=== PATIENT | male | born 1955 | race Caucasian/White ===

== ENCOUNTER 2016-12-21 19:36 | Emergency (ER) | payer OTHER ==
[~2016-12-21] VITALS: Ht 167.6 cm; Wt 84.0 kg
[~2016-12-21 19:36] MED LIST: BUSP10TA23 PO; DIVA500T69 PO; DULO30CA2 PO; GABA300C PO; OLAN10TA3 PO; SERT100T12 PO; TRAZ-144 PO
[2016-12-21 20:08] LABS: BASOPHILS % (AUTO) 0.6 % (0.0-2.0); EOSINOPHILS % (AUTO) 5.2 % (1.0-6.0); HEMOGLOBIN 13.6 g/dL (13.5-17.5); LYMPHOCYTES # (AUTO) 2.3 K/uL (1.0-4.8); LYMPHOCYTES % (AUTO) 31.7 % (22.0-44.0); MEAN CORPUSCULAR HGB CONC 32.4 G/dL (31.0-37.0); MEAN CORPUSCULAR VOLUME 93 fL (80-100); MONOCYTES # (AUTO) 0.7 K/uL (0.1-1.0); MONOCYTES % (AUTO) 10.3 % (2.0-9.0); NEUTROPHILS # (AUTO) 3.7 K/uL (1.8-7.7); NEUTROPHILS % (AUTO) 52.2 % (40.0-70.0); PLATELET COUNT (AUTO) 310 K/uL (150-450); RED BLOOD CELL COUNT(AUTO) 4.53 MIL/uL (4.50-5.90); RED CELL DISTRIBUTION WIDTH 15.3 % (11.5-14.5); WHITE BLOOD COUNT (AUTO) 7.1 K/uL (4.5-11.0)
[2016-12-21 20:21] LABS: ANION GAP 9 mmol/L (8-16); CALCIUM, TOTAL 8.5 mg/dL (8.8-10.5); CARBON DIOXIDE 26 mmol/L (22-29); CHLORIDE 101 mmol/L (98-107); CREATININE 0.89 mg/dL (0.60-1.30); GLOMERULAR FILTR. RATE CALC > 60 mL/min (>60); POTASSIUM 3.7 mmol/L (3.5-5.1); SODIUM SERUM 136 mmol/L (136-145); UREA NITROGEN, BLOOD 15 mg/dL (7-18)
[2016-12-21 20:27] LABS: ALANINE AMINOTRANSFERASE 48 U/L (12-78); ALBUMIN 3.7 g/dL (3.4-5.0); ASPARTATE AMINOTRANSFERASE 38 U/L (15-37); BILIRUBIN,TOTAL 0.3 mg/dL (0.1-1.0); TOTAL PROTEIN, SERUM 7.6 g/dL (6.4-8.2)
[2016-12-21] MEDS ORDERED: LORazepam 1 MG TABLET PO ONE (22:15)
[2016-12-21] MEDS ORDERED: OLANZapine 5 MG TABLET PO ONE (22:15)
[2016-12-21] MEDS ORDERED: ALBUTEROL SULFATE 2.5 MG/0.5 ML NEB SOLUTION NEB ONE (23:15)
[2016-12-21] MEDS ORDERED: 0.9% SODIUM CHLORIDE 5 ML NEB SOLUTION NEB ONE (23:56)
[2016-12-22 00:50] VITALS: BP 133/74
== END 2016-12-22 01:32 | disposition home or self-care (01) ==
LOC: EMS 19:40
DX: S50.812A Abrasion of left forearm, initial encounter (principal); J18.9 Pneumonia, unspecified organism; F20.9 Schizophrenia, unspecified; F41.9 Anxiety disorder, unspecified; J44.9 Chronic obstructive pulmonary disease, unspecified; I10 Essential (primary) hypertension; I25.2 Old myocardial infarction; F17.210 Nicotine dependence, cigarettes, uncomplicated; F11.90 Opioid use, unspecified, uncomplicated; Z88.0 Allergy status to penicillin; Z86.73 Personal history of transient ischemic attack (TIA), and cerebral infarction without residual deficits; X58.XXXA Exposure to other specified factors, initial encounter; Y93.89 Activity, other specified; Y92.89 Other specified places as the place of occurrence of the external cause; Y99.8 Other external cause status
CPT/HCPCS: 36415; 71020; 80053; 80164; 80307; 85025; 94640; 99285; G0480; J7613

== ENCOUNTER 2017-01-13 20:01 | Emergency (ER) | payer OTHER ==
[~2017-01-13] VITALS: Ht 167.6 cm; Wt 81.8 kg
[2017-01-13 21:28] VITALS: BP 135/86
== END 2017-01-13 21:34 | disposition home or self-care (01) ==
LOC: EMS 20:03
DX: I10 Essential (primary) hypertension (principal); F41.9 Anxiety disorder, unspecified; I25.2 Old myocardial infarction; J44.9 Chronic obstructive pulmonary disease, unspecified; F32.9 Major depressive disorder, single episode, unspecified; F20.9 Schizophrenia, unspecified; F17.210 Nicotine dependence, cigarettes, uncomplicated; F15.90 Other stimulant use, unspecified, uncomplicated; F14.90 Cocaine use, unspecified, uncomplicated; Z88.0 Allergy status to penicillin; Z88.6 Allergy status to analgesic agent; Z86.73 Personal history of transient ischemic attack (TIA), and cerebral infarction without residual deficits
CPT/HCPCS: 82962; 93005; 99283

== ENCOUNTER 2017-03-21 11:38 | Emergency (ER) | payer OTHER ==
[~2017-03-21] VITALS: Ht 170.2 cm; Wt 75.0 kg
[2017-03-21 11:46] VITALS: BP 142/90
[2017-03-21 12:03] LABS: GLUCOSE,POINT OF CARE 122 MG/DL (70-110)
[2017-03-21 12:53] LABS: BASOPHILS % (AUTO) 0.3 % (0.0-2.0); EOSINOPHILS % (AUTO) 4.9 % (1.0-6.0); HEMOGLOBIN 13.2 g/dL (13.5-17.5); LYMPHOCYTES # (AUTO) 1.8 K/uL (1.0-4.8); LYMPHOCYTES % (AUTO) 22.7 % (22.0-44.0); MEAN CORPUSCULAR HEMOGLOBIN 31.4 pg (26.0-34.0); MEAN CORPUSCULAR HGB CONC 33.9 G/dL (31.0-37.0); MEAN CORPUSCULAR VOLUME 93 fL (80-100); MONOCYTES # (AUTO) 0.9 K/uL (0.1-1.0); MONOCYTES % (AUTO) 11.6 % (2.0-9.0); NEUTROPHILS # (AUTO) 4.7 K/uL (1.8-7.7); NEUTROPHILS % (AUTO) 60.5 % (40.0-70.0); PLATELET COUNT (AUTO) 249 K/uL (150-450); RED BLOOD CELL COUNT(AUTO) 4.21 MIL/uL (4.50-5.90); WHITE BLOOD COUNT (AUTO) 7.8 K/uL (4.5-11.0)
[2017-03-21 13:28] LABS: ANION GAP 10 mmol/L (8-16); CALCIUM, TOTAL 8.8 mg/dL (8.8-10.5); CARBON DIOXIDE 25 mmol/L (22-29); CHLORIDE 106 mmol/L (98-107); CREATININE 1.16 mg/dL (0.60-1.30); GLOMERULAR FILTR. RATE CALC > 60 mL/min (>60); POTASSIUM 3.8 mmol/L (3.5-5.1); SODIUM SERUM 141 mmol/L (136-145); UREA NITROGEN, BLOOD 12 mg/dL (7-18)
[2017-03-21 13:35] LABS: ALANINE AMINOTRANSFERASE 201 U/L (12-78); ALBUMIN 3.7 g/dL (3.4-5.0); ASPARTATE AMINOTRANSFERASE 114 U/L (15-37); BILIRUBIN,TOTAL 0.5 mg/dL (0.1-1.0); TOTAL PROTEIN, SERUM 7.5 g/dL (6.4-8.2)
== END 2017-03-21 12:25 | disposition home or self-care (01) ==
LOC: EMS 11:40
DX: Z77.098 Contact with and (suspected) exposure to other hazardous, chiefly nonmedicinal, chemicals (principal); F20.9 Schizophrenia, unspecified; F32.9 Major depressive disorder, single episode, unspecified; F41.9 Anxiety disorder, unspecified; G89.29 Other chronic pain; I10 Essential (primary) hypertension; I25.2 Old myocardial infarction; F17.210 Nicotine dependence, cigarettes, uncomplicated; J44.9 Chronic obstructive pulmonary disease, unspecified; Z86.73 Personal history of transient ischemic attack (TIA), and cerebral infarction without residual deficits; Z88.0 Allergy status to penicillin; Z88.6 Allergy status to analgesic agent
CPT/HCPCS: 36415; 80053; 80307; 82962; 85025; 99284; G0480

== ENCOUNTER 2017-04-05 16:02 | Inpatient (IN) | payer MEDICAID, OTHER ==
[~2017-04-05] VITALS: Ht 167.6 cm; Wt 77.1 kg
[2017-04-05 17:23] LABS: BASOPHILS % (AUTO) 0.8 % (0.0-2.0); EOSINOPHILS % (AUTO) 4.3 % (1.0-6.0); HEMATOCRIT 41.4 % (41-53); LYMPHOCYTES # (AUTO) 2.1 K/uL (1.0-4.8); LYMPHOCYTES % (AUTO) 28.7 % (22.0-44.0); MEAN CORPUSCULAR HEMOGLOBIN 31.5 pg (26.0-34.0); MEAN CORPUSCULAR HGB CONC 33.9 G/dL (31.0-37.0); MEAN CORPUSCULAR VOLUME 93 fL (80-100); MONOCYTES # (AUTO) 0.7 K/uL (0.1-1.0); MONOCYTES % (AUTO) 9.6 % (2.0-9.0); NEUTROPHILS # (AUTO) 4.2 K/uL (1.8-7.7); NEUTROPHILS % (AUTO) 56.6 % (40.0-70.0); PLATELET COUNT (AUTO) 243 K/uL (150-450); RED BLOOD CELL COUNT(AUTO) 4.45 MIL/uL (4.50-5.90); RED CELL DISTRIBUTION WIDTH 15.8 % (11.5-14.5); WHITE BLOOD COUNT (AUTO) 7.4 K/uL (4.5-11.0)
[2017-04-05 17:28] LABS: ANION GAP 11 mmol/L (8-16); CALCIUM, TOTAL 8.3 mg/dL (8.8-10.5); CARBON DIOXIDE 23 mmol/L (22-29); CHLORIDE 104 mmol/L (98-107); CREATININE 1.01 mg/dL (0.60-1.30); GLOMERULAR FILTR. RATE CALC > 60 mL/min (>60); POTASSIUM 3.5 mmol/L (3.5-5.1); SODIUM SERUM 138 mmol/L (136-145); UREA NITROGEN, BLOOD 12 mg/dL (7-18)
[2017-04-05] MEDS ORDERED: LORazepam 2 MG TABLET PO ONE (17:30)
[2017-04-05] MEDS ORDERED: HALOPERIDOL 5 MG TABLET PO ONE (17:30)
[2017-04-05 17:34] LABS: ALANINE AMINOTRANSFERASE 172 U/L (12-78); ALBUMIN 3.7 g/dL (3.4-5.0); ASPARTATE AMINOTRANSFERASE 135 U/L (15-37); BILIRUBIN,TOTAL 0.7 mg/dL (0.1-1.0); TOTAL PROTEIN, SERUM 7.4 g/dL (6.4-8.2)
[2017-04-05] MEDS ORDERED: ZOLPIDEM TARTRATE 10 MG TABLET PO PRN (20:00)
[2017-04-05 21:39] LABS: CHOL/HDL RATIO 3.8 (4.2-7.3); THYROID STIMULATING HORMONE 1.36 uIU/mL (0.36-3.74)
[2017-04-05] MEDS: OLANZapine 10 MG TABLET PO SCH (23:20)
[2017-04-06 04:20] VITALS: BP 137/77
[2017-04-06 08:55] VITALS: BP 113/79
[2017-04-06] MEDS: DULoxetine HCL 30 MG CAPSULE PO SCH (09:10)
[2017-04-06 16:30] VITALS: BP 148/86
[2017-04-06] MEDS: LORazepam 2 MG TABLET PO PRN (16:37)
[2017-04-06] MEDS: HALOPERIDOL 5 MG TABLET PO PRN (16:37)
[2017-04-06] MEDS: OLANZapine 10 MG TABLET PO SCH (20:47)
[2017-04-07] MEDS: DULoxetine HCL 30 MG CAPSULE PO SCH (09:21)
[2017-04-07 09:26] VITALS: BP 131/87
[2017-04-07] MEDS ORDERED: ACETAMINOPHEN 325 MG TABLET PO PRN (15:00)
[2017-04-07 17:00] VITALS: BP 102/85
[2017-04-07] MEDS: OLANZapine 10 MG TABLET PO SCH (21:34)
[2017-04-08 08:07] LABS: HEPATITIS Bs ANTIGEN SCREEN P Negative (Negative); HEPATITIS C AB SCREEN >11.0 s/co ratio (0.0-0.9)
[2017-04-08 08:15] VITALS: BP 119/84
[2017-04-08] MEDS: DULoxetine HCL 30 MG CAPSULE PO SCH (10:03)
[2017-04-08] MEDS: OLANZapine 10 MG TABLET PO SCH (21:18)
[2017-04-08 23:37] VITALS: BP 117/84
[2017-04-09 08:15] VITALS: BP 121/75
[2017-04-09] MEDS: DULoxetine HCL 30 MG CAPSULE PO SCH (08:56)
[2017-04-09] MEDS: HALOPERIDOL 5 MG TABLET PO PRN (16:34)
[2017-04-09 16:56] VITALS: BP 106/80
[2017-04-09] MEDS: OLANZapine 10 MG TABLET PO SCH (20:21)
[2017-04-10 08:15] VITALS: BP 119/72
[2017-04-10] MEDS: DULoxetine HCL 30 MG CAPSULE PO SCH (09:06)
[2017-04-10] MEDS: LORazepam 2 MG TABLET PO PRN (12:23)
[2017-04-10] MEDS: HALOPERIDOL 5 MG TABLET PO PRN (16:07)
[2017-04-10 17:09] VITALS: BP 116/73
[2017-04-10 17:10] VITALS: BP 116/73
[2017-04-10] MEDS: OLANZapine 10 MG TABLET PO SCH (20:07)
[2017-04-10] MEDS: IBUPROFEN 600 MG TABLET PO PRN (20:07)
[2017-04-10 20:08] VITALS: BP 115/78
[2017-04-11 08:21] VITALS: BP 129/63
[2017-04-11] MEDS: DULoxetine HCL 30 MG CAPSULE PO SCH (09:28)
[2017-04-11] MEDS: IBUPROFEN 600 MG TABLET PO PRN (10:25)
[2017-04-11] MEDS: LORazepam 2 MG TABLET PO PRN (11:27)
[2017-04-11] MEDS ORDERED: DULO30CA2 PO (15:10)
[2017-04-11] MEDS ORDERED: OLAN10TA3 PO (15:11)
== END 2017-04-11 17:30 | disposition home or self-care (01) | DRG 750 ==
LOC: EMS 16:08 → 3EI 04-06 01:07
DX: F20.0 Paranoid schizophrenia (principal); B19.10 Unspecified viral hepatitis B without hepatic coma; I10 Essential (primary) hypertension; F41.9 Anxiety disorder, unspecified; F32.9 Major depressive disorder, single episode, unspecified; J44.9 Chronic obstructive pulmonary disease, unspecified; I25.2 Old myocardial infarction; G89.29 Other chronic pain; G47.00 Insomnia, unspecified; M54.5 Low back pain; I25.10 Atherosclerotic heart disease of native coronary artery without angina pectoris; K21.9 Gastro-esophageal reflux disease without esophagitis; R79.89 Other specified abnormal findings of blood chemistry; F17.210 Nicotine dependence, cigarettes, uncomplicated; F15.90 Other stimulant use, unspecified, uncomplicated; F14.90 Cocaine use, unspecified, uncomplicated; Z72.89 Other problems related to lifestyle; Z91.14 Patient's other noncompliance with medication regimen; Z88.0 Allergy status to penicillin; Z88.8 Allergy status to other drugs, medicaments and biological substances; Z79.899 Other long term (current) drug therapy; Z86.73 Personal history of transient ischemic attack (TIA), and cerebral infarction without residual deficits
CPT/HCPCS: 80074; 84443; 99285; G0480

== ENCOUNTER 2017-04-19 14:22 | Emergency (ER) | payer MEDICAID, OTHER ==
[~2017-04-19] VITALS: Ht 167.6 cm; Wt 71.8 kg
[~2017-04-19 14:22] MED LIST changes: -BUSP10TA23 PO; -DIVA500T69 PO; -GABA300C PO; -SERT100T12 PO; -TRAZ-144 PO
[2017-04-19 15:13] LABS: GLUCOSE,POINT OF CARE 100 MG/DL (70-110)
[2017-04-19 17:19] VITALS: BP 108/71
== END 2017-04-19 18:35 | disposition home or self-care (01) ==
LOC: EMS 14:28
DX: S09.91XA Unspecified injury of ear, initial encounter (principal); H61.23 Impacted cerumen, bilateral; J44.9 Chronic obstructive pulmonary disease, unspecified; I10 Essential (primary) hypertension; I25.2 Old myocardial infarction; F17.210 Nicotine dependence, cigarettes, uncomplicated; F15.90 Other stimulant use, unspecified, uncomplicated; F14.90 Cocaine use, unspecified, uncomplicated; Z86.73 Personal history of transient ischemic attack (TIA), and cerebral infarction without residual deficits; Z88.0 Allergy status to penicillin; Z88.6 Allergy status to analgesic agent; X58.XXXA Exposure to other specified factors, initial encounter; Y93.89 Activity, other specified; Y92.488 Other paved roadways as the place of occurrence of the external cause; Y99.8 Other external cause status
CPT/HCPCS: 69209; 82962; 99283

== ENCOUNTER 2017-04-20 18:49 | Emergency (ER) | payer OTHER ==
[~2017-04-20] VITALS: Ht 167.6 cm; Wt 72.7 kg
[2017-04-20 19:52] LABS: EOSINOPHILS % (AUTO) 2.6 % (1.0-6.0); HEMATOCRIT 37.1 % (41-53); HEMOGLOBIN 12.5 g/dL (13.5-17.5); LYMPHOCYTES # (AUTO) 1.5 K/uL (1.0-4.8); MEAN CORPUSCULAR HEMOGLOBIN 31.9 pg (26.0-34.0); MEAN CORPUSCULAR HGB CONC 33.8 G/dL (31.0-37.0); MEAN CORPUSCULAR VOLUME 95 fL (80-100); MONOCYTES % (AUTO) 16.5 % (2.0-9.0); NEUTROPHILS # (AUTO) 3.3 K/uL (1.8-7.7); NEUTROPHILS % (AUTO) 54.9 % (40.0-70.0); PLATELET COUNT (AUTO) 276 K/uL (150-450); RED BLOOD CELL COUNT(AUTO) 3.92 MIL/uL (4.50-5.90); WHITE BLOOD COUNT (AUTO) 6.1 K/uL (4.5-11.0)
[2017-04-20 20:03] LABS: ANION GAP 9 mmol/L (8-16); CARBON DIOXIDE 25 mmol/L (22-29); CHLORIDE 108 mmol/L (98-107); CREATININE 0.92 mg/dL (0.60-1.30); GLOMERULAR FILTR. RATE CALC > 60 mL/min (>60); POTASSIUM 3.6 mmol/L (3.5-5.1); SODIUM SERUM 142 mmol/L (136-145); UREA NITROGEN, BLOOD 12 mg/dL (7-18)
[2017-04-20 20:08] LABS: ALANINE AMINOTRANSFERASE 87 U/L (12-78); ASPARTATE AMINOTRANSFERASE 68 U/L (15-37); BILIRUBIN,TOTAL 0.3 mg/dL (0.1-1.0); TOTAL PROTEIN, SERUM 6.7 g/dL (6.4-8.2)
[2017-04-20 21:12] VITALS: BP 120/70
== END 2017-04-20 21:39 | disposition home or self-care (01) ==
LOC: EMS 18:54
DX: R07.2 Precordial pain (principal); I10 Essential (primary) hypertension; I25.2 Old myocardial infarction; I25.10 Atherosclerotic heart disease of native coronary artery without angina pectoris; J44.9 Chronic obstructive pulmonary disease, unspecified; F14.90 Cocaine use, unspecified, uncomplicated; F15.90 Other stimulant use, unspecified, uncomplicated; F17.210 Nicotine dependence, cigarettes, uncomplicated; Z88.0 Allergy status to penicillin; Z88.6 Allergy status to analgesic agent
CPT/HCPCS: 93005; 99285

== ENCOUNTER 2017-05-09 18:23 | Emergency (ER) | payer OTHER ==
[~2017-05-09] VITALS: Ht 167.6 cm; Wt 72.0 kg
[2017-05-09 19:55] LABS: BASOPHILS # (AUTO) 0.03 K/uL (0.00-0.20); BASOPHILS % (AUTO) 0.6 % (0.0-2.0); EOSINOPHILS # (AUTO) 0.16 K/uL (0.00-0.70); EOSINOPHILS % (AUTO) 3.32 % (1.0-6.0); HEMATOCRIT 38.3 % (41-53); LYMPHOCYTES # (AUTO) 1.7 K/uL (1.0-4.8); LYMPHOCYTES % (AUTO) 36.2 % (22.0-44.0); MEAN CORPUSCULAR HGB CONC 34.1 G/dL (31.0-37.0); MEAN CORPUSCULAR VOLUME 94 fL (80-100); MONOCYTES # (AUTO) 0.6 K/uL (0.1-1.0); MONOCYTES % (AUTO) 12.2 % (2.0-9.0); NEUTROPHILS # (AUTO) 2.3 K/uL (1.8-7.7); NEUTROPHILS % (AUTO) 47.7 % (40.0-70.0); PLATELET COUNT (AUTO) 190 K/uL (150-450); RED BLOOD CELL COUNT(AUTO) 4.07 MIL/uL (4.50-5.90); RED CELL DISTRIBUTION WIDTH 15.5 % (11.5-14.5); WHITE BLOOD COUNT (AUTO) 4.8 K/uL (4.5-11.0)
[2017-05-09 20:05] LABS: ANION GAP 14 mmol/L (8-16); CALCIUM, TOTAL 8.5 mg/dL (8.8-10.5); CARBON DIOXIDE 20 mmol/L (22-29); CHLORIDE 105 mmol/L (98-107); CREATININE 0.81 mg/dL (0.60-1.30); GLOMERULAR FILTR. RATE CALC > 60 mL/min (>60); POTASSIUM 3.2 mmol/L (3.5-5.1); SODIUM SERUM 139 mmol/L (136-145); UREA NITROGEN, BLOOD 10 mg/dL (7-18)
[2017-05-09 20:08] LABS: ALANINE AMINOTRANSFERASE 159 U/L (12-78); ALBUMIN 3.5 g/dL (3.4-5.0); ASPARTATE AMINOTRANSFERASE 176 U/L (15-37); BILIRUBIN,TOTAL 0.3 mg/dL (0.1-1.0); TOTAL PROTEIN, SERUM 7.5 g/dL (6.4-8.2)
[2017-05-09] MEDS ORDERED: POTASSIUM CHLORIDE 10% 40 MEQ/30 ML LIQUID UDCUP PO ONE (22:15)
[2017-05-10 01:34] VITALS: BP 116/76
== END 2017-05-10 01:38 | disposition home or self-care (01) ==
LOC: EMS 18:30
DX: R45.851 Suicidal ideations (principal); E87.6 Hypokalemia; F14.10 Cocaine abuse, uncomplicated; K70.30 Alcoholic cirrhosis of liver without ascites; F15.10 Other stimulant abuse, uncomplicated; F10.129 Alcohol abuse with intoxication, unspecified; J44.9 Chronic obstructive pulmonary disease, unspecified; F41.9 Anxiety disorder, unspecified; I10 Essential (primary) hypertension; I25.2 Old myocardial infarction; F20.9 Schizophrenia, unspecified; F17.210 Nicotine dependence, cigarettes, uncomplicated; F32.9 Major depressive disorder, single episode, unspecified; Z86.73 Personal history of transient ischemic attack (TIA), and cerebral infarction without residual deficits; Z88.0 Allergy status to penicillin; Z88.6 Allergy status to analgesic agent; Y90.2 Blood alcohol level of 40-59 mg/100 ml
CPT/HCPCS: 36415; 80053; 80307; 85025; 99285; 99406; G0480

== ENCOUNTER 2017-05-20 17:22 | Emergency (ER) | payer OTHER ==
[~2017-05-20] VITALS: Ht 167.6 cm; Wt 75.0 kg
[2017-05-20] MEDS ORDERED: CALC-877 PO (17:31)
[2017-05-20 17:58] LABS: GLUCOSE,POINT OF CARE 117 MG/DL (70-110)
[2017-05-20] MEDS ORDERED: SODIUM CHLORIDE 0.9% 1,000 ML IV ONE (18:00)
[2017-05-20] MEDS ORDERED: DONNATAL/LIDOCAINE/MAALOX 55 ML BOTTLE PO ONE (18:00)
[2017-05-20] MEDS ORDERED: VENL50TA44 PO (18:08)
[2017-05-20] MEDS ORDERED: GABA-531 PO (18:08)
[2017-05-20] MEDS ORDERED: NITR.4 SL (18:08)
[2017-05-20] MEDS ORDERED: BUSP10TA23 PO (18:08)
[2017-05-20 18:21] LABS: BASOPHILS % (AUTO) 0.8 % (0.0-2.0); EOSINOPHILS % (AUTO) 3.3 % (1.0-6.0); HEMATOCRIT 36.1 % (41-53); HEMOGLOBIN 12.2 g/dL (13.5-17.5); LYMPHOCYTES # (AUTO) 1.2 K/uL (1.0-4.8); LYMPHOCYTES % (AUTO) 23.1 % (22.0-44.0); MEAN CORPUSCULAR HEMOGLOBIN 32.1 pg (26.0-34.0); MEAN CORPUSCULAR HGB CONC 33.8 G/dL (31.0-37.0); MEAN CORPUSCULAR VOLUME 95 fL (80-100); MONOCYTES # (AUTO) 0.5 K/uL (0.1-1.0); MONOCYTES % (AUTO) 10.3 % (2.0-9.0); NEUTROPHILS # (AUTO) 3.3 K/uL (1.8-7.7); NEUTROPHILS % (AUTO) 62.5 % (40.0-70.0); PLATELET COUNT (AUTO) 212 K/uL (150-450); RED CELL DISTRIBUTION WIDTH 15.6 % (11.5-14.5); WHITE BLOOD COUNT (AUTO) 5.3 K/uL (4.5-11.0)
[2017-05-20 18:28] LABS: ANION GAP 11 mmol/L (8-16); CALCIUM, TOTAL 7.9 mg/dL (8.8-10.5); CARBON DIOXIDE 21 mmol/L (22-29); CHLORIDE 109 mmol/L (98-107); CREATININE 1.03 mg/dL (0.60-1.30); GLOMERULAR FILTR. RATE CALC > 60 mL/min (>60); POTASSIUM 3.7 mmol/L (3.5-5.1); SODIUM SERUM 141 mmol/L (136-145); UREA NITROGEN, BLOOD 15 mg/dL (7-18)
[2017-05-20 18:56] LABS: ALANINE AMINOTRANSFERASE 131 U/L (12-78); ALBUMIN 2.9 g/dL (3.4-5.0); ASPARTATE AMINOTRANSFERASE 105 U/L (15-37); BILIRUBIN,TOTAL 0.4 mg/dL (0.1-1.0); CREATINE KINASE MB 4.2 ng/mL (0-5); CREATINE KINASE, TOTAL 162 U/L (39-308); TOTAL PROTEIN, SERUM 6.2 g/dL (6.4-8.2)
[2017-05-20 20:05] LABS: APPEARANCE,URINE CLEAR (CLEAR); GLUCOSE, URINE (UA) NEGATIVE (NEGATIVE); KETONES,URINE TRACE mg/dL (NEGATIVE); LEUKOCYTE ESTERASE ,URINE NEGATIVE (NEGATIVE); OCCULT BLOOD,URINE NEGATIVE (NEGATIVE); PROTEIN,URINE NEGATIVE (NEGATIVE)
[2017-05-20 20:09] LABS: ADD UA MICROSCOPIC NO
[2017-05-20 20:28] LABS: B-TYPE NATRIURETIC PEPTIDE 9 pg/mL (0-100)
[2017-05-20 20:30] VITALS: BP 108/58
== END 2017-05-20 21:00 | disposition home or self-care (01) ==
LOC: EMS 17:23
DX: K21.9 Gastro-esophageal reflux disease without esophagitis (principal); R07.89 Other chest pain; F12.10 Cannabis abuse, uncomplicated; F15.10 Other stimulant abuse, uncomplicated; J44.9 Chronic obstructive pulmonary disease, unspecified; I10 Essential (primary) hypertension; Z86.73 Personal history of transient ischemic attack (TIA), and cerebral infarction without residual deficits; I25.2 Old myocardial infarction; F17.210 Nicotine dependence, cigarettes, uncomplicated; Z88.0 Allergy status to penicillin; Z88.6 Allergy status to analgesic agent
CPT/HCPCS: 36415; 71010; 80053; 80307; 81003; 82550; 82553; 82962; 83880; 84484; 85025; 93005; 96360; 99285; 99406; J7030; Z7610

== ENCOUNTER 2017-09-20 17:35 | Inpatient (IN) | payer MEDICAID, OTHER ==
[~2017-09-20] VITALS: Ht 170.2 cm; Wt 76.7 kg
[~2017-09-20 17:35] MED LIST changes: +BUSP10TA23 PO; -DULO30CA2 PO; +GABA-531 PO; +NITR.4 SL; +TRAZ-147 PO; +VENL50TA44 PO
[2017-09-20] MEDS ORDERED: BACITRACIN 0.9 GM PACKET OINTMENT TP ONE (18:30)
[2017-09-20 18:57] LABS: ANION GAP 7 mmol/L (8-16); CALCIUM, TOTAL 8.4 mg/dL (8.8-10.5); CARBON DIOXIDE 27 mmol/L (22-29); CHLORIDE 106 mmol/L (98-107); CREATININE 0.85 mg/dL (0.60-1.30); GLOMERULAR FILTR. RATE CALC > 60 mL/min (>60); GLUCOSE,RANDOM 116 mg/dL (70-110); SODIUM SERUM 140 mmol/L (136-145); UREA NITROGEN, BLOOD 14 mg/dL (7-18)
[2017-09-20 19:02] LABS: BASOPHILS % (AUTO) 0.6 % (0.0-2.0); EOSINOPHILS % (AUTO) 7.6 % (1.0-6.0); HEMATOCRIT 35.4 % (41-53); LYMPHOCYTES # (AUTO) 1.6 K/uL (1.0-4.8); LYMPHOCYTES % (AUTO) 23.2 % (22.0-44.0); MEAN CORPUSCULAR HEMOGLOBIN 31.4 pg (26.0-34.0); MEAN CORPUSCULAR HGB CONC 33.8 G/dL (31.0-37.0); MEAN CORPUSCULAR VOLUME 93 fL (80-100); MONOCYTES # (AUTO) 0.9 K/uL (0.1-1.0); MONOCYTES % (AUTO) 12.4 % (2.0-9.0); NEUTROPHILS % (AUTO) 56.2 % (40.0-70.0); PLATELET COUNT (AUTO) 210 K/uL (150-450); RED BLOOD CELL COUNT(AUTO) 3.82 MIL/uL (4.50-5.90); RED CELL DISTRIBUTION WIDTH 14.3 % (11.5-14.5)
[2017-09-20 19:03] LABS: ALANINE AMINOTRANSFERASE 148 U/L (12-78); ALKALINE PHOSPHATASE 113 U/L (46-116); ASPARTATE AMINOTRANSFERASE 95 U/L (15-37); BILIRUBIN,TOTAL 0.3 mg/dL (0.1-1.0); TOTAL PROTEIN, SERUM 6.9 g/dL (6.4-8.2)
[2017-09-20 20:13] LABS: AMPHET/METH SCREEN,URINE NEGATIVE (NEGATIVE); BARBITURATE SCREEN, URINE NEGATIVE (NEGATIVE); BENZODIAZEPINES SCREEN,URINE NEGATIVE (NEGATIVE); CANNABINOID SCREEN,URINE NEGATIVE (NEGATIVE); COCAINE SCREEN,URINE POSITIVE (NEGATIVE); OPIATE SCREEN,URINE NEGATIVE (NEGATIVE)
[2017-09-20 20:19] LABS: PHENCYCLIDINE SCREEN,URINE NEGATIVE (NEGATIVE)
[2017-09-20] MEDS ORDERED: ZOLPIDEM TARTRATE 10 MG TABLET PO PRN (20:30)
[2017-09-20 20:41] LABS: APPEARANCE,URINE CLEAR (CLEAR); BILIRUBIN,URINE NEGATIVE (NEGATIVE); GLUCOSE, URINE (UA) NEGATIVE (NEGATIVE); KETONES,URINE NEGATIVE (NEGATIVE); LEUKOCYTE ESTERASE ,URINE NEGATIVE (NEGATIVE); NITRATE,URINE NEGATIVE (NEGATIVE); OCCULT BLOOD,URINE NEGATIVE (NEGATIVE); PH,URINE 6.5 (5.0-8.0); PROTEIN,URINE NEGATIVE (NEGATIVE)
[2017-09-20 20:52] LABS: METHADONE SCREEN, URINE NEGATIVE (NEGATIVE)
[2017-09-20 21:08] LABS: THYROID STIMULATING HORMONE 0.98 uIU/mL (0.36-3.74)
[2017-09-20 21:47] VITALS: BP 130/74
[2017-09-20] MEDS: LORazepam 2 MG TABLET PO PRN (22:11)
[2017-09-20] MEDS: HALOPERIDOL 5 MG TABLET PO PRN (22:12)
[2017-09-20] MEDS ORDERED: NITROGLYCERIN 0.4 MG SUBLINGUAL TABLET #25 SL PRN (22:45)
[2017-09-21] MEDS ORDERED: CloNIDine HCL 0.1 MG TABLET PO PRN (09:00)
[2017-09-21] MEDS ORDERED: PETROLATUM,WHITE 71 GM JELLY TP PRN (09:00)
[2017-09-21] MEDS ORDERED: ONDANSETRON HCL 4 MG TABLET PO PRN (09:00)
[2017-09-21] MEDS ORDERED: MAGNESIUM HYDROXIDE SUSPENSION 30 ML UDCUP PO PRN (09:00)
[2017-09-21] MEDS ORDERED: LOPERAMIDE HCL 2 MG CAPSULE PO PRN (09:00)
[2017-09-21] MEDS ORDERED: ALBUTEROL SULFATE HFA 90 MCG/PUFF 8 GM INHALER IH PRN (09:00)
[2017-09-21] MEDS ORDERED: MAG HYDROX/AL HYDROX/SIMETH ES 30 ML SUSPENSION UDCUP PO PRN (09:00)
[2017-09-21] MEDS ORDERED: BENZOCAINE/MENTHOL LOZENGE [8 LOZENGES/PACKET] MM PRN (09:00)
[2017-09-21] MEDS: GABAPENTIN 300 MG CAPSULE PO SCH (09:50)
[2017-09-21] MEDS: NICOTINE 14 MG/24 HOUR PATCH TD SCH (09:50)
[2017-09-21 10:11] VITALS: BP 126/83
[2017-09-21] MEDS: BACITRACIN 28.4 GM OINTMENT TP SCH ×2 (10:23→17:26)
[2017-09-21] MEDS: LORazepam 2 MG TABLET PO PRN (15:13)
[2017-09-21 16:08] VITALS: BP 112/89
[2017-09-21] MEDS: TraZODone HCL 100 MG TABLET PO SCH (20:28)
[2017-09-21 20:32] LABS: GLUCOMETER DEV NAME(LOC) 3EI B; GLUCOSE,POINT OF CARE 186 MG/DL (70-110)
[2017-09-22 09:12] VITALS: BP 119/87
[2017-09-22] MEDS: GABAPENTIN 300 MG CAPSULE PO SCH (09:23)
[2017-09-22] MEDS: OLANZapine 5 MG TABLET PO SCH ×2 (09:24→16:37)
[2017-09-22] MEDS: NICOTINE 14 MG/24 HOUR PATCH TD SCH (09:24)
[2017-09-22] MEDS: BENZTROPINE MESYLATE 0.5 MG TABLET PO SCH ×2 (09:24→16:37)
[2017-09-22] MEDS: BACITRACIN 28.4 GM OINTMENT TP SCH ×2 (09:28→16:49)
[2017-09-22] MEDS: LORazepam 2 MG TABLET PO PRN (10:14)
[2017-09-22] MEDS: HALOPERIDOL 5 MG TABLET PO PRN (10:14)
[2017-09-22 19:32] VITALS: BP 117/83
[2017-09-22] MEDS: TraZODone HCL 100 MG TABLET PO SCH (21:40)
[2017-09-23] MEDS: HALOPERIDOL 5 MG TABLET PO PRN (06:25)
[2017-09-23 09:00] VITALS: BP 106/75
[2017-09-23] MEDS: GABAPENTIN 300 MG CAPSULE PO SCH (09:01)
[2017-09-23] MEDS: MULTIVITAMINS WITH MINERALS, THERAPEUTIC TABLET PO SCH (09:01)
[2017-09-23] MEDS: OLANZapine 5 MG TABLET PO SCH (09:01)
[2017-09-23] MEDS: NICOTINE 14 MG/24 HOUR PATCH TD SCH (09:02)
[2017-09-23] MEDS: BENZTROPINE MESYLATE 0.5 MG TABLET PO SCH ×2 (09:03→16:24)
[2017-09-23] MEDS: BACITRACIN 28.4 GM OINTMENT TP SCH ×2 (09:04→16:24)
[2017-09-23 16:20] VITALS: BP 121/71
[2017-09-23] MEDS: MUPIROCIN CALCIUM 2% 22 GM OINTMENT NASAL SCH (16:23)
[2017-09-23] MEDS: ACETAMINOPHEN 325 MG TABLET PO PRN (16:25)
[2017-09-23 17:20] VITALS: BP 119/68
[2017-09-23] MEDS: OLANZapine 10 MG TABLET PO SCH (20:19)
[2017-09-23] MEDS: TraZODone HCL 100 MG TABLET PO SCH (20:20)
[2017-09-23] MEDS: LORazepam 2 MG TABLET PO PRN (23:41)
[2017-09-24 06:08] VITALS: BP 120/74
[2017-09-24 08:00] VITALS: BP 120/65
[2017-09-24] MEDS: BACITRACIN 28.4 GM OINTMENT TP SCH ×2 (09:00→17:32)
[2017-09-24] MEDS: OLANZapine 5 MG TABLET PO SCH (09:38)
[2017-09-24] MEDS: GABAPENTIN 300 MG CAPSULE PO SCH (09:38)
[2017-09-24] MEDS: BENZTROPINE MESYLATE 0.5 MG TABLET PO SCH ×2 (09:38→17:31)
[2017-09-24] MEDS: MULTIVITAMINS WITH MINERALS, THERAPEUTIC TABLET PO SCH (09:38)
[2017-09-24] MEDS: NICOTINE 14 MG/24 HOUR PATCH TD SCH (09:40)
[2017-09-24] MEDS: MUPIROCIN CALCIUM 2% 22 GM OINTMENT NASAL SCH ×2 (13:34→17:31)
[2017-09-24] MEDS: LORazepam 2 MG TABLET PO PRN (15:00)
[2017-09-24] MEDS: HALOPERIDOL 5 MG TABLET PO PRN (15:00)
[2017-09-24 16:58] VITALS: BP 139/85
[2017-09-24] MEDS: TraZODone HCL 100 MG TABLET PO SCH (21:41)
[2017-09-24] MEDS: OLANZapine 10 MG TABLET PO SCH (21:42)
[2017-09-25] MEDS: GABAPENTIN 300 MG CAPSULE PO SCH (08:26)
[2017-09-25] MEDS: MULTIVITAMINS WITH MINERALS, THERAPEUTIC TABLET PO SCH (08:26)
[2017-09-25] MEDS: BENZTROPINE MESYLATE 0.5 MG TABLET PO SCH ×2 (08:26→16:42)
[2017-09-25] MEDS: NICOTINE 14 MG/24 HOUR PATCH TD SCH (08:26)
[2017-09-25] MEDS: MUPIROCIN CALCIUM 2% 22 GM OINTMENT NASAL SCH ×2 (08:26→16:40)
[2017-09-25] MEDS: OLANZapine 5 MG TABLET PO SCH (08:27)
[2017-09-25 08:30] VITALS: BP 100/65
[2017-09-25] MEDS: BACITRACIN 28.4 GM OINTMENT TP SCH ×2 (09:24→16:42)
[2017-09-25] MEDS: LORazepam 2 MG TABLET PO PRN (09:26)
[2017-09-25 16:32] VITALS: BP 107/80
[2017-09-25] MEDS: TraZODone HCL 100 MG TABLET PO SCH (20:07)
[2017-09-25] MEDS: OLANZapine 10 MG TABLET PO SCH (20:07)
[2017-09-26 08:00] VITALS: BP 123/86
[2017-09-26] MEDS: LORazepam 2 MG TABLET PO PRN (08:08)
[2017-09-26] MEDS: BENZTROPINE MESYLATE 0.5 MG TABLET PO SCH (08:08)
[2017-09-26] MEDS: MULTIVITAMINS WITH MINERALS, THERAPEUTIC TABLET PO SCH (08:08)
[2017-09-26] MEDS: GABAPENTIN 300 MG CAPSULE PO SCH (08:08)
[2017-09-26] MEDS: HALOPERIDOL 5 MG TABLET PO PRN (08:08)
[2017-09-26] MEDS: OLANZapine 5 MG TABLET PO SCH (08:08)
[2017-09-26] MEDS: MUPIROCIN CALCIUM 2% 22 GM OINTMENT NASAL SCH (08:08)
[2017-09-26] MEDS: NICOTINE 14 MG/24 HOUR PATCH TD SCH (08:12)
[2017-09-26] MEDS: BACITRACIN 28.4 GM OINTMENT TP SCH (09:16)
[2017-09-26] MEDS ORDERED: BENZ0.5T6 PO (10:01)
[2017-09-26] MEDS ORDERED: OLAN5TAB2 PO (10:02)
[2017-09-26] MEDS ORDERED: TRAZ-147 PO (10:03)
[2017-09-26] MEDS ORDERED: BACI3.5O22 TP (10:05)
[2017-09-26] MEDS ORDERED: MV-M1TAB2 PO (10:06)
[2017-09-26] MEDS ORDERED: MUPI1OIN4 NS (10:07)
[2017-09-26] MEDS: ACETAMINOPHEN 325 MG TABLET PO PRN (10:51)
== END 2017-09-26 11:50 | disposition home or self-care (01) | DRG 750 ==
LOC: EMS 17:38 → 3EI 21:08
PROVIDERS: ADMIT Psychiatry & Neurology Child & Adolescent Psychiatry; ATTEND Psychiatry & Neurology Child & Adolescent Psychiatry
DX: F25.1 Schizoaffective disorder, depressive type (principal); E83.51 Hypocalcemia; I10 Essential (primary) hypertension; F14.10 Cocaine abuse, uncomplicated; S61.512A Laceration without foreign body of left wrist, initial encounter; D64.9 Anemia, unspecified; G40.909 Epilepsy, unspecified, not intractable, without status epilepticus; B18.2 Chronic viral hepatitis C; F17.200 Nicotine dependence, unspecified, uncomplicated; F41.9 Anxiety disorder, unspecified; G47.00 Insomnia, unspecified; I25.10 Atherosclerotic heart disease of native coronary artery without angina pectoris; J44.9 Chronic obstructive pulmonary disease, unspecified; I25.2 Old myocardial infarction; Z59.0 Homelessness; G89.29 Other chronic pain; F15.90 Other stimulant use, unspecified, uncomplicated; Z82.49 Family history of ischemic heart disease and other diseases of the circulatory system; Z71.6 Tobacco abuse counseling; Z86.73 Personal history of transient ischemic attack (TIA), and cerebral infarction without residual deficits; Z88.6 Allergy status to analgesic agent; Z88.0 Allergy status to penicillin; Z79.899 Other long term (current) drug therapy; X83.8XXA Intentional self-harm by other specified means, initial encounter; Y93.89 Activity, other specified; Y92.89 Other specified places as the place of occurrence of the external cause; Y99.8 Other external cause status
CPT/HCPCS: 82306; 82962; 84443; 87081; 99285; G0480

== ENCOUNTER 2017-10-11 11:38 | Inpatient (IN) | payer MEDICAID, OTHER ==
[~2017-10-11] VITALS: Ht 167.6 cm; Wt 78.8 kg
[~2017-10-11 11:38] MED LIST changes: +BACI3.5O22 TP; +BENZ0.5T6 PO; -BUSP10TA23 PO; +MUPI1OIN4 NS; +MV-M1TAB2 PO; -NITR.4 SL; +OLAN5TAB2 PO; -VENL50TA44 PO
[2017-10-11 12:14] LABS: EOSINOPHILS % (AUTO) 5.5 % (1.0-6.0); HEMATOCRIT 44.1 % (41-53); HEMOGLOBIN 14.8 g/dL (13.5-17.5); LYMPHOCYTES # (AUTO) 1.8 K/uL (1.0-4.8); LYMPHOCYTES % (AUTO) 24.3 % (22.0-44.0); MEAN CORPUSCULAR HGB CONC 33.6 G/dL (31.0-37.0); MEAN CORPUSCULAR VOLUME 92 fL (80-100); MONOCYTES # (AUTO) 0.7 K/uL (0.1-1.0); MONOCYTES % (AUTO) 9.2 % (2.0-9.0); NEUTROPHILS # (AUTO) 4.3 K/uL (1.8-7.7); PLATELET COUNT (AUTO) 214 K/uL (150-450); RED BLOOD CELL COUNT(AUTO) 4.78 MIL/uL (4.50-5.90); RED CELL DISTRIBUTION WIDTH 14.3 % (11.5-14.5)
[2017-10-11] MEDS ORDERED: SODIUM CHLORIDE 0.9% 250 ML IRRIG SOLUTION BOTTLE IRRIG ONE (12:15)
[2017-10-11] MEDS ORDERED: PERTUSS(ACELL),DIPH,TET VAC/PF 0.5 ML VIAL IM ONE (12:15)
[2017-10-11 12:36] LABS: AMPHET/METH SCREEN,URINE POSITIVE (NEGATIVE); BARBITURATE SCREEN, URINE NEGATIVE (NEGATIVE); BENZODIAZEPINES SCREEN,URINE NEGATIVE (NEGATIVE); CANNABINOID SCREEN,URINE NEGATIVE (NEGATIVE); COCAINE SCREEN,URINE POSITIVE (NEGATIVE); METHADONE SCREEN, URINE NEGATIVE (NEGATIVE); OPIATE SCREEN,URINE NEGATIVE (NEGATIVE)
[2017-10-11 12:37] LABS: PHENCYCLIDINE SCREEN,URINE NEGATIVE (NEGATIVE)
[2017-10-11] MEDS ORDERED: ZOLPIDEM TARTRATE 10 MG TABLET PO PRN (13:00)
[2017-10-11 13:13] LABS: GLUCOSE,POINT OF CARE 101 MG/DL (70-110)
[2017-10-11 13:15] LABS: ANION GAP 8 mmol/L (8-16); CALCIUM, TOTAL 8.4 mg/dL (8.8-10.5); CARBON DIOXIDE 26 mmol/L (22-29); CHLORIDE 104 mmol/L (98-107); CREATININE 0.69 mg/dL (0.60-1.30); GLOMERULAR FILTR. RATE CALC > 60 mL/min (>60); GLUCOSE,RANDOM 97 mg/dL (70-110); POTASSIUM 3.7 mmol/L (3.5-5.1); SODIUM SERUM 138 mmol/L (136-145); UREA NITROGEN, BLOOD 11 mg/dL (7-18)
[2017-10-11 13:20] LABS: ALANINE AMINOTRANSFERASE 43 U/L (12-78); ALBUMIN 3.2 g/dL (3.4-5.0); ALKALINE PHOSPHATASE 73 U/L (46-116); ASPARTATE AMINOTRANSFERASE 35 U/L (15-37); BILIRUBIN,TOTAL 0.4 mg/dL (0.1-1.0); TOTAL PROTEIN, SERUM 7.1 g/dL (6.4-8.2)
[2017-10-11 16:30] VITALS: BP 135/92
[2017-10-11] MEDS: LORazepam 2 MG TABLET PO PRN (16:37)
[2017-10-11] MEDS: HALOPERIDOL 5 MG TABLET PO PRN (16:37)
[2017-10-11] MEDS ORDERED: INFLUENZA VIRUS VACCINE QVS 2017-18 (3YR+)/PF 60 MCG/0.5 ML SYRINGE IM ONE (21:15)
[2017-10-11] MEDS ORDERED: PNEUMOCOCCAL VACCINE POLYVALENT 0.5 ML VIAL [PPSV23] IM ONE (21:15)
[2017-10-11] MEDS ORDERED: -PHARMACY VACCINE NOTE- MISC ONE (21:15)
[2017-10-11] MEDS: GABAPENTIN 300 MG CAPSULE PO SCH (21:23)
[2017-10-12 06:13] VITALS: BP 138/74
[2017-10-12] MEDS ORDERED: INFLUENZA VIRUS VACCINE QVS 2017-18 (3YR+)/PF 60 MCG/0.5 ML SYRINGE IM ONE (09:00)
[2017-10-12] MEDS: GABAPENTIN 300 MG CAPSULE PO SCH (09:10)
[2017-10-12] MEDS: LORazepam 2 MG TABLET PO PRN ×2 (09:11→14:03)
[2017-10-12] MEDS: NICOTINE 14 MG/24 HOUR PATCH TD SCH (09:11)
[2017-10-12] MEDS: HALOPERIDOL 5 MG TABLET PO PRN ×2 (09:11→14:03)
[2017-10-12] MEDS ORDERED: MAGNESIUM HYDROXIDE SUSPENSION 30 ML UDCUP PO PRN (09:45)
[2017-10-12] MEDS ORDERED: CloNIDine HCL 0.1 MG TABLET PO PRN (09:45)
[2017-10-12] MEDS ORDERED: BENZOCAINE/MENTHOL LOZENGE [8 LOZENGES/PACKET] MM PRN (09:45)
[2017-10-12] MEDS ORDERED: MAG HYDROX/AL HYDROX/SIMETH ES 30 ML SUSPENSION UDCUP PO PRN (09:45)
[2017-10-12] MEDS ORDERED: ALBUTEROL SULFATE HFA 90 MCG/PUFF 8 GM INHALER IH PRN (09:45)
[2017-10-12] MEDS ORDERED: PETROLATUM,WHITE 71 GM JELLY TP PRN (09:45)
[2017-10-12] MEDS ORDERED: LOPERAMIDE HCL 2 MG CAPSULE PO PRN (09:45)
[2017-10-12] MEDS ORDERED: ONDANSETRON HCL 4 MG TABLET PO PRN (09:45)
[2017-10-12 13:54] VITALS: BP 130/79
[2017-10-12] MEDS: BENZTROPINE MESYLATE 0.5 MG TABLET PO SCH (17:25)
[2017-10-12] MEDS: TraZODone HCL 100 MG TABLET PO SCH (21:08)
[2017-10-12] MEDS: OLANZapine 10 MG TABLET PO SCH (21:08)
[2017-10-13] MEDS: OMEPRAZOLE 20 MG CAPSULE PO SCH (08:02)
[2017-10-13] MEDS: SERTRALINE HCL 100 MG TABLET PO SCH (08:02)
[2017-10-13] MEDS: GABAPENTIN 300 MG CAPSULE PO SCH (08:03)
[2017-10-13] MEDS: BENZTROPINE MESYLATE 0.5 MG TABLET PO SCH ×2 (08:03→16:02)
[2017-10-13] MEDS: DOCUSATE SODIUM 100 MG CAPSULE PO SCH (08:03)
[2017-10-13] MEDS: OLANZapine 5 MG TABLET PO SCH (08:03)
[2017-10-13] MEDS: NICOTINE 14 MG/24 HOUR PATCH TD SCH (08:03)
[2017-10-13 08:06] VITALS: BP 143/101
[2017-10-13] MEDS: LORazepam 2 MG TABLET PO PRN (08:06)
[2017-10-13] MEDS: ACETAMINOPHEN 325 MG TABLET PO PRN ×2 (08:06→13:00)
[2017-10-13] MEDS ORDERED: GABAPENTIN 300 MG CAPSULE PO SCH (09:00)
[2017-10-13 09:06] VITALS: BP 140/88
[2017-10-13] MEDS: HALOPERIDOL 5 MG TABLET PO PRN (12:04)
[2017-10-13 13:00] VITALS: BP 130/90
[2017-10-13 17:30] VITALS: BP 143/95
[2017-10-13] MEDS: OLANZapine 10 MG TABLET PO SCH (21:57)
[2017-10-13] MEDS: TraZODone HCL 100 MG TABLET PO SCH (21:57)
[2017-10-14] MEDS: SERTRALINE HCL 100 MG TABLET PO SCH (07:51)
[2017-10-14] MEDS: BENZTROPINE MESYLATE 0.5 MG TABLET PO SCH ×2 (07:51→17:05)
[2017-10-14] MEDS: OMEPRAZOLE 20 MG CAPSULE PO SCH (07:51)
[2017-10-14] MEDS: OLANZapine 5 MG TABLET PO SCH (07:51)
[2017-10-14] MEDS: NICOTINE 14 MG/24 HOUR PATCH TD SCH (07:51)
[2017-10-14] MEDS: LORazepam 2 MG TABLET PO PRN ×2 (07:52→14:47)
[2017-10-14] MEDS: GABAPENTIN 300 MG CAPSULE PO SCH (07:52)
[2017-10-14] MEDS: HALOPERIDOL 5 MG TABLET PO PRN ×2 (07:52→14:47)
[2017-10-14] MEDS: DOCUSATE SODIUM 100 MG CAPSULE PO SCH (07:52)
[2017-10-14] MEDS: ACETAMINOPHEN 325 MG TABLET PO PRN (07:52)
[2017-10-14 11:18] VITALS: BP 130/70
[2017-10-14] MEDS: OLANZapine 10 MG TABLET PO SCH (20:06)
[2017-10-14] MEDS: TraZODone HCL 100 MG TABLET PO SCH (20:06)
[2017-10-14 22:13] VITALS: BP 114/76
[2017-10-15 08:00] VITALS: BP 134/91
[2017-10-15] MEDS: LORazepam 2 MG TABLET PO PRN ×3 (08:29→17:29)
[2017-10-15] MEDS: OLANZapine 5 MG TABLET PO SCH (08:29)
[2017-10-15] MEDS: DOCUSATE SODIUM 100 MG CAPSULE PO SCH (08:29)
[2017-10-15] MEDS: BENZTROPINE MESYLATE 0.5 MG TABLET PO SCH ×2 (08:29→17:29)
[2017-10-15] MEDS: OMEPRAZOLE 20 MG CAPSULE PO SCH (08:29)
[2017-10-15] MEDS: HALOPERIDOL 5 MG TABLET PO PRN ×3 (08:29→17:29)
[2017-10-15] MEDS: SERTRALINE HCL 100 MG TABLET PO SCH (08:29)
[2017-10-15] MEDS: GABAPENTIN 300 MG CAPSULE PO SCH (08:29)
[2017-10-15] MEDS: NICOTINE 14 MG/24 HOUR PATCH TD SCH (08:34)
[2017-10-15] MEDS: BACITRACIN 28.4 GM OINTMENT TP PRN (10:51)
[2017-10-15 16:27] VITALS: BP 127/85
[2017-10-15] MEDS: OLANZapine 10 MG TABLET PO SCH (20:38)
[2017-10-15] MEDS: TraZODone HCL 100 MG TABLET PO SCH (20:38)
[2017-10-16 00:24] VITALS: BP 142/91
[2017-10-16 08:00] VITALS: BP 133/90
[2017-10-16] MEDS: OMEPRAZOLE 20 MG CAPSULE PO SCH (08:18)
[2017-10-16] MEDS: BENZTROPINE MESYLATE 0.5 MG TABLET PO SCH ×2 (08:18→17:23)
[2017-10-16] MEDS: GABAPENTIN 300 MG CAPSULE PO SCH (08:18)
[2017-10-16] MEDS: OLANZapine 5 MG TABLET PO SCH (08:18)
[2017-10-16] MEDS: HALOPERIDOL 5 MG TABLET PO PRN ×3 (08:18→17:23)
[2017-10-16] MEDS: DOCUSATE SODIUM 100 MG CAPSULE PO SCH (08:18)
[2017-10-16] MEDS: SERTRALINE HCL 100 MG TABLET PO SCH (08:18)
[2017-10-16] MEDS: LORazepam 2 MG TABLET PO PRN ×3 (08:19→17:23)
[2017-10-16] MEDS: NICOTINE 14 MG/24 HOUR PATCH TD SCH (08:19)
[2017-10-16] MEDS: BACITRACIN 28.4 GM OINTMENT TP PRN (10:33)
[2017-10-16 17:08] VITALS: BP 119/79
[2017-10-16] MEDS: OLANZapine 10 MG TABLET PO SCH (22:24)
[2017-10-16] MEDS: TraZODone HCL 100 MG TABLET PO SCH (22:24)
[2017-10-17 09:00] VITALS: BP 123/94
[2017-10-17] MEDS: BACITRACIN 28.4 GM OINTMENT TP PRN (09:39)
[2017-10-17] MEDS: DOCUSATE SODIUM 100 MG CAPSULE PO SCH (09:40)
[2017-10-17] MEDS: GABAPENTIN 300 MG CAPSULE PO SCH (09:40)
[2017-10-17] MEDS: NICOTINE 14 MG/24 HOUR PATCH TD SCH (09:40)
[2017-10-17] MEDS: SERTRALINE HCL 100 MG TABLET PO SCH (09:41)
[2017-10-17] MEDS: OLANZapine 5 MG TABLET PO SCH (09:41)
[2017-10-17] MEDS: BENZTROPINE MESYLATE 0.5 MG TABLET PO SCH ×2 (09:41→17:34)
[2017-10-17] MEDS: OMEPRAZOLE 20 MG CAPSULE PO SCH (09:44)
[2017-10-17] MEDS: HALOPERIDOL 5 MG TABLET PO PRN (17:36)
[2017-10-17 17:39] VITALS: BP 99/80
[2017-10-17] MEDS: OLANZapine 10 MG TABLET PO SCH (20:37)
[2017-10-17] MEDS: TraZODone HCL 100 MG TABLET PO SCH (20:37)
[2017-10-18 08:00] VITALS: BP 135/77
[2017-10-18] MEDS: BENZTROPINE MESYLATE 0.5 MG TABLET PO SCH ×2 (08:56→16:14)
[2017-10-18] MEDS: LORazepam 2 MG TABLET PO PRN ×2 (08:56→16:14)
[2017-10-18] MEDS: DOCUSATE SODIUM 100 MG CAPSULE PO SCH (08:56)
[2017-10-18] MEDS: SERTRALINE HCL 100 MG TABLET PO SCH (08:56)
[2017-10-18] MEDS: GABAPENTIN 300 MG CAPSULE PO SCH (08:56)
[2017-10-18] MEDS: OLANZapine 5 MG TABLET PO SCH (08:56)
[2017-10-18] MEDS: HALOPERIDOL 5 MG TABLET PO PRN ×2 (08:56→16:15)
[2017-10-18] MEDS: OMEPRAZOLE 20 MG CAPSULE PO SCH (08:56)
[2017-10-18] MEDS: NICOTINE 14 MG/24 HOUR PATCH TD SCH (08:58)
[2017-10-18] MEDS: BACITRACIN 28.4 GM OINTMENT TP PRN (10:35)
[2017-10-18] MEDS: OLANZapine 10 MG TABLET PO SCH (20:37)
[2017-10-18] MEDS: TraZODone HCL 100 MG TABLET PO SCH (20:37)
[2017-10-19 08:00] VITALS: BP 149/76
[2017-10-19] MEDS: GABAPENTIN 300 MG CAPSULE PO SCH (08:08)
[2017-10-19] MEDS: HALOPERIDOL 5 MG TABLET PO PRN ×3 (08:08→17:09)
[2017-10-19] MEDS: BENZTROPINE MESYLATE 0.5 MG TABLET PO SCH ×2 (08:09→17:09)
[2017-10-19] MEDS: OLANZapine 5 MG TABLET PO SCH (08:09)
[2017-10-19] MEDS: DOCUSATE SODIUM 100 MG CAPSULE PO SCH (08:09)
[2017-10-19] MEDS: LORazepam 2 MG TABLET PO PRN ×3 (08:09→17:09)
[2017-10-19] MEDS: SERTRALINE HCL 100 MG TABLET PO SCH (08:09)
[2017-10-19] MEDS: OMEPRAZOLE 20 MG CAPSULE PO SCH (08:09)
[2017-10-19] MEDS: NICOTINE 14 MG/24 HOUR PATCH TD SCH (08:11)
[2017-10-19] MEDS: BACITRACIN 28.4 GM OINTMENT TP PRN (10:35)
[2017-10-19 18:39] VITALS: BP 130/84
[2017-10-19] MEDS: OLANZapine 10 MG TABLET PO SCH (21:01)
[2017-10-19] MEDS: TraZODone HCL 100 MG TABLET PO SCH (21:01)
[2017-10-20 08:00] VITALS: BP 141/71
[2017-10-20] MEDS: DOCUSATE SODIUM 100 MG CAPSULE PO SCH (09:00)
[2017-10-20] MEDS: HALOPERIDOL 5 MG TABLET PO PRN ×2 (09:00→16:21)
[2017-10-20] MEDS: SERTRALINE HCL 100 MG TABLET PO SCH (09:00)
[2017-10-20] MEDS: OLANZapine 5 MG TABLET PO SCH (09:00)
[2017-10-20] MEDS: LORazepam 2 MG TABLET PO PRN ×2 (09:00→16:21)
[2017-10-20] MEDS: GABAPENTIN 300 MG CAPSULE PO SCH (09:01)
[2017-10-20] MEDS: OMEPRAZOLE 20 MG CAPSULE PO SCH (09:01)
[2017-10-20] MEDS: BENZTROPINE MESYLATE 0.5 MG TABLET PO SCH ×2 (09:01→16:21)
[2017-10-20] MEDS: NICOTINE 14 MG/24 HOUR PATCH TD SCH (09:03)
[2017-10-20] MEDS: BACITRACIN 28.4 GM OINTMENT TP PRN (10:37)
[2017-10-20 16:23] VITALS: BP 116/67
[2017-10-20] MEDS: OLANZapine 10 MG TABLET PO SCH (21:04)
[2017-10-20] MEDS: TraZODone HCL 100 MG TABLET PO SCH (21:04)
[2017-10-21 08:00] VITALS: BP 130/85
[2017-10-21] MEDS ORDERED: SERT100T12 PO (08:02)
[2017-10-21] MEDS ORDERED: OLAN5TAB2 PO (08:02)
[2017-10-21] MEDS ORDERED: DSS100 PO (08:05)
[2017-10-21] MEDS ORDERED: OMEP20 PO (08:05)
[2017-10-21] MEDS: GABAPENTIN 300 MG CAPSULE PO SCH (08:38)
[2017-10-21] MEDS: BENZTROPINE MESYLATE 0.5 MG TABLET PO SCH (08:38)
[2017-10-21] MEDS: OMEPRAZOLE 20 MG CAPSULE PO SCH (08:38)
[2017-10-21] MEDS: DOCUSATE SODIUM 100 MG CAPSULE PO SCH (08:38)
[2017-10-21] MEDS: OLANZapine 5 MG TABLET PO SCH (08:38)
[2017-10-21] MEDS: SERTRALINE HCL 100 MG TABLET PO SCH (08:38)
[2017-10-21] MEDS: NICOTINE 14 MG/24 HOUR PATCH TD SCH (08:42)
== END 2017-10-21 10:05 | disposition home or self-care (01) | DRG 740 ==
LOC: EMS 11:40 → 3EI 13:34
PROVIDERS: ADMIT Psychiatry & Neurology Child & Adolescent Psychiatry; ATTEND Psychiatry & Neurology Child & Adolescent Psychiatry
PROC: 0XQFXZZ Repair Left Lower Arm, External Approach (ICD-10-PCS; principal; 2017-10-11)
DX: F25.1 Schizoaffective disorder, depressive type (principal); R45.851 Suicidal ideations; F14.20 Cocaine dependence, uncomplicated; I10 Essential (primary) hypertension; B18.2 Chronic viral hepatitis C; F15.20 Other stimulant dependence, uncomplicated; F17.210 Nicotine dependence, cigarettes, uncomplicated; F32.9 Major depressive disorder, single episode, unspecified; G89.29 Other chronic pain; Y90.2 Blood alcohol level of 40-59 mg/100 ml; F10.20 Alcohol dependence, uncomplicated; F41.9 Anxiety disorder, unspecified; G40.909 Epilepsy, unspecified, not intractable, without status epilepticus; I25.10 Atherosclerotic heart disease of native coronary artery without angina pectoris; J44.9 Chronic obstructive pulmonary disease, unspecified; S51.812A Laceration without foreign body of left forearm, initial encounter; Z59.0 Homelessness; Z79.899 Other long term (current) drug therapy; Z86.73 Personal history of transient ischemic attack (TIA), and cerebral infarction without residual deficits; Z28.21 Immunization not carried out because of patient refusal; Z88.0 Allergy status to penicillin; Z88.6 Allergy status to analgesic agent; Z71.41 Alcohol abuse counseling and surveillance of alcoholic; Z71.6 Tobacco abuse counseling; Z71.51 Drug abuse counseling and surveillance of drug abuser
CPT/HCPCS: 12001; 82962; 87081; 90471; 90715; 99285; 99406; G0480

== ENCOUNTER 2017-12-02 19:06 | Inpatient (IN) | payer MEDICAID, OTHER ==
[~2017-12-02] VITALS: Ht 167.6 cm; Wt 76.9 kg
[~2017-12-02 19:06] MED LIST changes: -BACI3.5O22 TP; +BENZ0.5T44 PO; -BENZ0.5T6 PO; +BUPR150SR PO; +DSS100 PO; -MUPI1OIN4 NS; -MV-M1TAB2 PO; +OMEP20 PO
[2017-12-02] MEDS ORDERED: HALOPERIDOL 5 MG TABLET PO PRN (20:30)
[2017-12-02] MEDS ORDERED: ZOLPIDEM TARTRATE 10 MG TABLET PO PRN (20:30)
[2017-12-02] MEDS ORDERED: HALOPERIDOL 5 MG TABLET PO ONE (20:45)
[2017-12-02] MEDS ORDERED: LORazepam 1 MG TABLET PO ONE (20:45)
[2017-12-02] MEDS ORDERED: DiphenhydrAMINE HCL 25 MG CAPSULE PO ONE (20:45)
[2017-12-02 21:32] LABS: GLUCOSE,POINT OF CARE 96 MG/DL (70-110)
[2017-12-02 21:46] LABS: BASOPHILS % (AUTO) 0.8 % (0.0-2.0); EOSINOPHILS % (AUTO) 5.3 % (1.0-6.0); HEMATOCRIT 41.3 % (41-53); HEMOGLOBIN 13.7 g/dL (13.5-17.5); LYMPHOCYTES # (AUTO) 2.4 K/uL (1.0-4.8); LYMPHOCYTES % (AUTO) 28.4 % (22.0-44.0); MEAN CORPUSCULAR HEMOGLOBIN 30.2 pg (26.0-34.0); MEAN CORPUSCULAR HGB CONC 33.1 G/dL (31.0-37.0); MEAN CORPUSCULAR VOLUME 91 fL (80-100); MONOCYTES % (AUTO) 11.2 % (2.0-9.0); NEUTROPHILS # (AUTO) 4.6 K/uL (1.8-7.7); NEUTROPHILS % (AUTO) 54.3 % (40.0-70.0); PLATELET COUNT (AUTO) 260 K/uL (150-450); RED BLOOD CELL COUNT(AUTO) 4.54 MIL/uL (4.50-5.90); RED CELL DISTRIBUTION WIDTH 14.8 % (11.5-14.5)
[2017-12-02 22:15] LABS: ANION GAP 7 mmol/L (8-16); CALCIUM, TOTAL 8.5 mg/dL (8.8-10.5); CARBON DIOXIDE 27 mmol/L (22-29); CHLORIDE 104 mmol/L (98-107); CREATININE 1.03 mg/dL (0.60-1.30); GLOMERULAR FILTR. RATE CALC > 60 mL/min (>60); GLUCOSE,RANDOM 94 mg/dL (70-110); POTASSIUM 3.9 mmol/L (3.5-5.1); SODIUM SERUM 138 mmol/L (136-145); UREA NITROGEN, BLOOD 18 mg/dL (7-18)
[2017-12-02 22:20] LABS: ALANINE AMINOTRANSFERASE 64 U/L (12-78); ALBUMIN 3.4 g/dL (3.4-5.0); ALKALINE PHOSPHATASE 80 U/L (46-116); ASPARTATE AMINOTRANSFERASE 42 U/L (15-37); BILIRUBIN,TOTAL 0.4 mg/dL (0.1-1.0); TOTAL PROTEIN, SERUM 7.2 g/dL (6.4-8.2)
[2017-12-03] MEDS ORDERED: PNEUMOCOCCAL VACCINE POLYVALENT 0.5 ML VIAL [PPSV23] IM ONE (01:00)
[2017-12-03] MEDS ORDERED: -PHARMACY VACCINE NOTE- MISC ONE (01:00)
[2017-12-03] MEDS ORDERED: MAG HYDROX/AL HYDROX/SIMETH ES 30 ML SUSPENSION UDCUP PO PRN (06:30)
[2017-12-03] MEDS ORDERED: PETROLATUM,WHITE 71 GM JELLY TP PRN (06:30)
[2017-12-03] MEDS ORDERED: BACITRACIN 28.4 GM OINTMENT TP PRN (06:30)
[2017-12-03] MEDS ORDERED: ONDANSETRON HCL 4 MG TABLET PO PRN (06:30)
[2017-12-03] MEDS ORDERED: CloNIDine HCL 0.1 MG TABLET PO PRN (06:30)
[2017-12-03] MEDS ORDERED: LOPERAMIDE HCL 2 MG CAPSULE PO PRN (06:30)
[2017-12-03] MEDS ORDERED: ALBUTEROL SULFATE HFA 90 MCG/PUFF 8 GM INHALER IH PRN (06:30)
[2017-12-03] MEDS ORDERED: MAGNESIUM HYDROXIDE SUSPENSION 30 ML UDCUP PO PRN (06:30)
[2017-12-03] MEDS ORDERED: ACETAMINOPHEN 325 MG TABLET PO PRN (06:30)
[2017-12-03] MEDS ORDERED: BENZOCAINE/MENTHOL LOZENGE MM PRN (06:30)
[2017-12-03] MEDS: LORazepam 2 MG TABLET PO PRN (10:50)
[2017-12-03 11:21] VITALS: BP 106/66
[2017-12-03] MEDS: GABAPENTIN 300 MG CAPSULE PO SCH ×2 (12:28→16:21)
[2017-12-03 16:00] VITALS: BP 118/75
[2017-12-03] MEDS: OLANZapine 10 MG TABLET PO SCH (20:18)
[2017-12-03] MEDS: TraZODone HCL 100 MG TABLET PO SCH (20:18)
[2017-12-04] MEDS: BuPROPion HCL 150 MG SR TABLET PO SCH (08:00)
[2017-12-04] MEDS: GABAPENTIN 300 MG CAPSULE PO SCH ×3 (08:00→16:16)
[2017-12-04] MEDS: OLANZapine 5 MG TABLET PO SCH (08:00)
[2017-12-04 08:38] VITALS: BP 109/63
[2017-12-04] MEDS: LORazepam 2 MG TABLET PO PRN (09:47)
[2017-12-04 18:40] VITALS: BP 114/72
[2017-12-04] MEDS: TraZODone HCL 100 MG TABLET PO SCH (20:54)
[2017-12-04] MEDS: OLANZapine 10 MG TABLET PO SCH (20:54)
[2017-12-05] MEDS: BuPROPion HCL 150 MG SR TABLET PO SCH (07:51)
[2017-12-05] MEDS: GABAPENTIN 300 MG CAPSULE PO SCH ×2 (07:51→12:00)
[2017-12-05] MEDS: OLANZapine 5 MG TABLET PO SCH (07:51)
[2017-12-05] MEDS: LORazepam 2 MG TABLET PO PRN (08:00)
[2017-12-05 08:47] VITALS: BP 136/63
== END 2017-12-05 15:30 | disposition home or self-care (01) | DRG 750 ==
LOC: EMS 19:07 → 3EC 20:38 → B2S 20:38
PROVIDERS: ADMIT Psychiatry & Neurology Child & Adolescent Psychiatry; ATTEND Psychiatry & Neurology Child & Adolescent Psychiatry
DX: F25.1 Schizoaffective disorder, depressive type (principal); E11.9 Type 2 diabetes mellitus without complications; R45.851 Suicidal ideations; I10 Essential (primary) hypertension; B18.2 Chronic viral hepatitis C; F17.210 Nicotine dependence, cigarettes, uncomplicated; F41.9 Anxiety disorder, unspecified; M54.5 Low back pain; G47.00 Insomnia, unspecified; I25.10 Atherosclerotic heart disease of native coronary artery without angina pectoris; X58.XXXA Exposure to other specified factors, initial encounter; J44.9 Chronic obstructive pulmonary disease, unspecified; S61.512A Laceration without foreign body of left wrist, initial encounter; F15.90 Other stimulant use, unspecified, uncomplicated; F32.9 Major depressive disorder, single episode, unspecified; G89.29 Other chronic pain; Z86.73 Personal history of transient ischemic attack (TIA), and cerebral infarction without residual deficits; Z79.899 Other long term (current) drug therapy; Y93.89 Activity, other specified; Y92.89 Other specified places as the place of occurrence of the external cause; Y99.8 Other external cause status
CPT/HCPCS: 82962; 87081; G0480

== ENCOUNTER 2017-12-14 18:04 | Inpatient (IN) | payer MEDICAID, OTHER ==
[~2017-12-14] VITALS: Ht 152.4 cm; Wt 78.3 kg
[~2017-12-14 18:04] MED LIST changes: -BENZ0.5T44 PO; -DSS100 PO; -OMEP20 PO
[2017-12-14] MEDS ORDERED: OMEP20 PO (18:58)
[2017-12-14] MEDS ORDERED: IPRA4AER IH (18:58)
[2017-12-14] MEDS ORDERED: NITR.4 SL (18:58)
[2017-12-14] MEDS ORDERED: BENZ0.5T44 PO (18:58)
[2017-12-14] MEDS ORDERED: HYD25 PO (18:58)
[2017-12-14] MEDS ORDERED: DSSL PO (18:58)
[2017-12-14] MEDS ORDERED: CALC1TAB90 PO (18:58)
[2017-12-14] MEDS ORDERED: ERGO500014 PO (18:58)
[2017-12-14 19:03] LABS: GLUCOSE,POINT OF CARE 91 MG/DL (70-110)
[2017-12-14 19:12] LABS: BASOPHILS % (AUTO) 0.5 % (0.0-2.0); HEMATOCRIT 39.6 % (41-53); HEMOGLOBIN 13.3 g/dL (13.5-17.5); LYMPHOCYTES # (AUTO) 1.9 K/uL (1.0-4.8); MEAN CORPUSCULAR HEMOGLOBIN 30.3 pg (26.0-34.0); MEAN CORPUSCULAR HGB CONC 33.7 G/dL (31.0-37.0); MEAN CORPUSCULAR VOLUME 90 fL (80-100); MONOCYTES # (AUTO) 0.8 K/uL (0.1-1.0); MONOCYTES % (AUTO) 13.2 % (2.0-9.0); NEUTROPHILS # (AUTO) 3.1 K/uL (1.8-7.7); NEUTROPHILS % (AUTO) 49.3 % (40.0-70.0); PLATELET COUNT (AUTO) 251 K/uL (150-450); RED BLOOD CELL COUNT(AUTO) 4.39 MIL/uL (4.50-5.90); RED CELL DISTRIBUTION WIDTH 14.9 % (11.5-14.5)
[2017-12-14 19:23] LABS: ANION GAP 10 mmol/L (8-16); CALCIUM, TOTAL 8.5 mg/dL (8.8-10.5); CARBON DIOXIDE 26 mmol/L (22-29); CHLORIDE 101 mmol/L (98-107); CREATININE 0.97 mg/dL (0.60-1.30); GLOMERULAR FILTR. RATE CALC > 60 mL/min (>60); GLUCOSE,RANDOM 84 mg/dL (70-110); POTASSIUM 3.5 mmol/L (3.5-5.1); SODIUM SERUM 137 mmol/L (136-145); UREA NITROGEN, BLOOD 7 mg/dL (7-18)
[2017-12-14 19:29] LABS: ALANINE AMINOTRANSFERASE 47 U/L (12-78); ALBUMIN 3.4 g/dL (3.4-5.0); ALKALINE PHOSPHATASE 66 U/L (46-116); ASPARTATE AMINOTRANSFERASE 30 U/L (15-37); BILIRUBIN,TOTAL 0.4 mg/dL (0.1-1.0); TOTAL PROTEIN, SERUM 7.3 g/dL (6.4-8.2)
[2017-12-14] MEDS ORDERED: ZOLPIDEM TARTRATE 10 MG TABLET PO PRN (21:45)
[2017-12-14] MEDS ORDERED: HALOPERIDOL 5 MG TABLET PO PRN (21:45)
[2017-12-14] MEDS: LORazepam 2 MG TABLET PO PRN (22:07)
[2017-12-14 22:11] LABS: AMPHET/METH SCREEN,URINE POSITIVE (NEGATIVE); BARBITURATE SCREEN, URINE NEGATIVE (NEGATIVE); BENZODIAZEPINES SCREEN,URINE NEGATIVE (NEGATIVE); CANNABINOID SCREEN,URINE NEGATIVE (NEGATIVE); COCAINE SCREEN,URINE POSITIVE (NEGATIVE); METHADONE SCREEN, URINE NEGATIVE (NEGATIVE); OPIATE SCREEN,URINE NEGATIVE (NEGATIVE)
[2017-12-14 22:12] LABS: PHENCYCLIDINE SCREEN,URINE NEGATIVE (NEGATIVE)
[2017-12-15] MEDS ORDERED: PNEUMOCOCCAL VACCINE POLYVALENT 0.5 ML VIAL [PPSV23] IM ONE (03:15)
[2017-12-15 07:04] LABS: CHOL/HDL RATIO 4.3 (4.2-7.3)
[2017-12-15] MEDS ORDERED: MAG HYDROX/AL HYDROX/SIMETH ES 30 ML SUSPENSION UDCUP PO PRN (08:30)
[2017-12-15] MEDS ORDERED: ONDANSETRON HCL 4 MG TABLET PO PRN (08:30)
[2017-12-15] MEDS ORDERED: ACETAMINOPHEN 325 MG TABLET PO PRN (08:30)
[2017-12-15] MEDS ORDERED: LOPERAMIDE HCL 2 MG CAPSULE PO PRN (08:30)
[2017-12-15] MEDS ORDERED: CloNIDine HCL 0.1 MG TABLET PO PRN (08:30)
[2017-12-15] MEDS ORDERED: MAGNESIUM HYDROXIDE SUSPENSION 30 ML UDCUP PO PRN (08:30)
[2017-12-15] MEDS ORDERED: BACITRACIN 28.4 GM OINTMENT TP PRN (08:30)
[2017-12-15] MEDS ORDERED: PETROLATUM,WHITE 71 GM JELLY TP PRN (08:30)
[2017-12-15] MEDS ORDERED: ALBUTEROL SULFATE HFA 90 MCG/PUFF 8 GM INHALER IH PRN (08:30)
[2017-12-15] MEDS ORDERED: BENZOCAINE/MENTHOL LOZENGE MM PRN (08:30)
[2017-12-15] MEDS: DOCUSATE SODIUM 100 MG CAPSULE PO SCH (09:22)
[2017-12-15] MEDS: OMEPRAZOLE 20 MG CAPSULE PO SCH (09:24)
[2017-12-15] MEDS: LORazepam 2 MG TABLET PO PRN (11:27)
[2017-12-15] MEDS: GABAPENTIN 300 MG CAPSULE PO SCH (17:57)
[2017-12-15] MEDS: BENZTROPINE MESYLATE 0.5 MG TABLET PO SCH (17:57)
[2017-12-15] MEDS: OLANZapine 10 MG TABLET PO SCH (21:13)
[2017-12-16] MEDS: BENZTROPINE MESYLATE 0.5 MG TABLET PO SCH ×2 (07:45→16:04)
[2017-12-16] MEDS: OMEPRAZOLE 20 MG CAPSULE PO SCH (07:45)
[2017-12-16] MEDS: DOCUSATE SODIUM 100 MG CAPSULE PO SCH (07:45)
[2017-12-16] MEDS: GABAPENTIN 300 MG CAPSULE PO SCH ×3 (07:45→16:03)
[2017-12-16] MEDS: BuPROPion HCL 150 MG SR TABLET PO SCH (07:46)
[2017-12-16] MEDS: LORazepam 2 MG TABLET PO PRN ×2 (07:46→16:03)
[2017-12-16] MEDS: OLANZapine 10 MG TABLET PO SCH (20:32)
[2017-12-17 07:15] LABS: % IRON SATURATION 26.2 % (30-44)
[2017-12-17] MEDS: GABAPENTIN 300 MG CAPSULE PO SCH ×3 (08:18→16:55)
[2017-12-17] MEDS: DOCUSATE SODIUM 100 MG CAPSULE PO SCH (08:18)
[2017-12-17] MEDS: LORazepam 2 MG TABLET PO PRN (08:18)
[2017-12-17] MEDS: OMEPRAZOLE 20 MG CAPSULE PO SCH (08:18)
[2017-12-17 08:30] VITALS: BP 116/68
[2017-12-17] MEDS: BENZTROPINE MESYLATE 0.5 MG TABLET PO SCH ×2 (09:37→16:55)
[2017-12-17] MEDS: BuPROPion HCL 150 MG SR TABLET PO SCH (09:37)
[2017-12-17] MEDS: MULTIVITAMINS WITH IRON TABLET PO SCH (09:37)
[2017-12-17] MEDS: OLANZapine 10 MG TABLET PO SCH (20:55)
[2017-12-18] MEDS: MULTIVITAMINS WITH IRON TABLET PO SCH (08:14)
[2017-12-18] MEDS: DOCUSATE SODIUM 100 MG CAPSULE PO SCH (08:14)
[2017-12-18] MEDS: BENZTROPINE MESYLATE 0.5 MG TABLET PO SCH ×2 (08:14→17:43)
[2017-12-18] MEDS: BuPROPion HCL 150 MG SR TABLET PO SCH (08:14)
[2017-12-18] MEDS: GABAPENTIN 300 MG CAPSULE PO SCH ×3 (08:15→17:43)
[2017-12-18] MEDS: OMEPRAZOLE 20 MG CAPSULE PO SCH (08:15)
[2017-12-18] MEDS: LORazepam 2 MG TABLET PO PRN ×2 (10:09→15:06)
[2017-12-18 10:12] VITALS: BP 120/87
[2017-12-18] MEDS: OLANZapine 10 MG TABLET PO SCH (17:42)
[2017-12-18 22:32] VITALS: BP 121/66
[2017-12-19] MEDS: DOCUSATE SODIUM 100 MG CAPSULE PO SCH (08:01)
[2017-12-19] MEDS: BuPROPion HCL 150 MG SR TABLET PO SCH (08:01)
[2017-12-19] MEDS: OMEPRAZOLE 20 MG CAPSULE PO SCH (08:01)
[2017-12-19] MEDS: BENZTROPINE MESYLATE 0.5 MG TABLET PO SCH (08:02)
[2017-12-19] MEDS: MULTIVITAMINS WITH IRON TABLET PO SCH (08:02)
[2017-12-19] MEDS: GABAPENTIN 300 MG CAPSULE PO SCH ×2 (08:02→12:02)
[2017-12-19 09:29] VITALS: BP 111/74
[2017-12-19] MEDS: LORazepam 2 MG TABLET PO PRN (11:34)
[2017-12-19] MEDS ORDERED: DSS100 PO (12:07)
== END 2017-12-19 15:15 | disposition home or self-care (01) | DRG 750 ==
LOC: EMS 18:06 → 3EC 12-15 00:23 → 3EI 12-16 18:30
PROVIDERS: ADMIT Psychiatry & Neurology Child & Adolescent Psychiatry; ATTEND Psychiatry & Neurology Child & Adolescent Psychiatry
DX: F25.1 Schizoaffective disorder, depressive type (principal); R45.851 Suicidal ideations; F14.20 Cocaine dependence, uncomplicated; E11.9 Type 2 diabetes mellitus without complications; F15.20 Other stimulant dependence, uncomplicated; I10 Essential (primary) hypertension; D64.9 Anemia, unspecified; B19.20 Unspecified viral hepatitis C without hepatic coma; G89.29 Other chronic pain; M54.5 Low back pain; F17.210 Nicotine dependence, cigarettes, uncomplicated; F41.9 Anxiety disorder, unspecified; E83.51 Hypocalcemia; G47.00 Insomnia, unspecified; I25.10 Atherosclerotic heart disease of native coronary artery without angina pectoris; J44.9 Chronic obstructive pulmonary disease, unspecified; Z79.899 Other long term (current) drug therapy; I25.2 Old myocardial infarction; Z86.73 Personal history of transient ischemic attack (TIA), and cerebral infarction without residual deficits; Z28.21 Immunization not carried out because of patient refusal; Z88.0 Allergy status to penicillin; Z88.6 Allergy status to analgesic agent; Z83.3 Family history of diabetes mellitus; Z82.49 Family history of ischemic heart disease and other diseases of the circulatory system; Z71.6 Tobacco abuse counseling; Z71.51 Drug abuse counseling and surveillance of drug abuser
CPT/HCPCS: 82306; 82962; 83540; 83550; 87081; 90471; 99285; G0480

== ENCOUNTER 2017-12-24 11:39 | Inpatient (IN) | payer MEDICAID, OTHER ==
[~2017-12-24] VITALS: Ht 160 cm; Wt 170.0 kg
[~2017-12-24 11:39] MED LIST changes: +BENZ0.5T44 PO; +DSS100 PO; -OLAN5TAB2 PO; +OMEP20 PO; -TRAZ-147 PO
[2017-12-24] MEDS ORDERED: BACITRACIN 0.9 GM PACKET OINTMENT TP ONE (12:40)
[2017-12-24] MEDS ORDERED: LORazepam 2 MG TABLET PO ONE (12:45)
[2017-12-24] MEDS ORDERED: DiphenhydrAMINE HCL 25 MG CAPSULE PO ONE (12:45)
[2017-12-24] MEDS ORDERED: HALOPERIDOL 5 MG TABLET PO ONE (12:45)
[2017-12-24 12:52] LABS: BASOPHILS % (AUTO) 0.7 % (0.0-2.0); EOSINOPHILS % (AUTO) 5.1 % (1.0-6.0); HEMATOCRIT 41.2 % (41-53); HEMOGLOBIN 14.3 g/dL (13.5-17.5); LYMPHOCYTES # (AUTO) 1.8 K/uL (1.0-4.8); LYMPHOCYTES % (AUTO) 19.4 % (22.0-44.0); MEAN CORPUSCULAR HEMOGLOBIN 31.3 pg (26.0-34.0); MEAN CORPUSCULAR HGB CONC 34.6 G/dL (31.0-37.0); MEAN CORPUSCULAR VOLUME 91 fL (80-100); MONOCYTES # (AUTO) 0.6 K/uL (0.1-1.0); MONOCYTES % (AUTO) 6.8 % (2.0-9.0); NEUTROPHILS # (AUTO) 6.4 K/uL (1.8-7.7); PLATELET COUNT (AUTO) 321 K/uL (150-450); RED BLOOD CELL COUNT(AUTO) 4.55 MIL/uL (4.50-5.90); RED CELL DISTRIBUTION WIDTH 14.9 % (11.5-14.5)
[2017-12-24 12:57] LABS: ANION GAP 9 mmol/L (8-16); CALCIUM, TOTAL 8.9 mg/dL (8.8-10.5); CARBON DIOXIDE 26 mmol/L (22-29); CHLORIDE 103 mmol/L (98-107); CREATININE 1.17 mg/dL (0.60-1.30); GLOMERULAR FILTR. RATE CALC > 60 mL/min (>60); GLUCOSE,RANDOM 104 mg/dL (70-110); POTASSIUM 4.4 mmol/L (3.5-5.1); SODIUM SERUM 138 mmol/L (136-145); UREA NITROGEN, BLOOD 13 mg/dL (7-18)
[2017-12-24 13:03] LABS: ALANINE AMINOTRANSFERASE 84 U/L (12-78); ALBUMIN 3.5 g/dL (3.4-5.0); ALKALINE PHOSPHATASE 94 U/L (46-116); ASPARTATE AMINOTRANSFERASE 77 U/L (15-37); BILIRUBIN,TOTAL 0.4 mg/dL (0.1-1.0); TOTAL PROTEIN, SERUM 7.5 g/dL (6.4-8.2)
[2017-12-24] MEDS ORDERED: ZOLPIDEM TARTRATE 10 MG TABLET PO PRN (13:30)
[2017-12-24] MEDS ORDERED: LORazepam 2 MG TABLET PO PRN (13:30)
[2017-12-24] MEDS ORDERED: HALOPERIDOL 5 MG TABLET PO PRN (13:30)
[2017-12-24 14:17] LABS: AMPHET/METH SCREEN,URINE NEGATIVE (NEGATIVE); BARBITURATE SCREEN, URINE NEGATIVE (NEGATIVE); BENZODIAZEPINES SCREEN,URINE NEGATIVE (NEGATIVE); CANNABINOID SCREEN,URINE NEGATIVE (NEGATIVE); COCAINE SCREEN,URINE POSITIVE (NEGATIVE); METHADONE SCREEN, URINE NEGATIVE (NEGATIVE); OPIATE SCREEN,URINE NEGATIVE (NEGATIVE); PHENCYCLIDINE SCREEN,URINE NEGATIVE (NEGATIVE)
[2017-12-24 16:20] VITALS: BP 111/73
[2017-12-24] MEDS ORDERED: PNEUMOCOCCAL VACCINE POLYVALENT 0.5 ML VIAL [PPSV23] IM ONE (16:45)
[2017-12-24] MEDS: LORazepam 2 MG TABLET PO PRN (18:30)
[2017-12-24] MEDS: ZOLPIDEM TARTRATE 10 MG TABLET PO PRN (20:47)
[2017-12-25 06:06] VITALS: BP_SYST 100; BP_SYST 126; BP_DIAS 61
[2017-12-25] MEDS: LORazepam 2 MG TABLET PO PRN ×3 (06:45→18:06)
[2017-12-25] MEDS: OMEPRAZOLE 20 MG CAPSULE PO SCH (07:54)
[2017-12-25] MEDS: DOCUSATE SODIUM 100 MG CAPSULE PO SCH (07:54)
[2017-12-25] MEDS: HALOPERIDOL 5 MG TABLET PO PRN ×2 (07:54→17:26)
[2017-12-25 08:31] LABS: CHOL/HDL RATIO 4.1 (4.2-7.3)
[2017-12-25 08:51] VITALS: BP 100/65
[2017-12-25] MEDS: BENZTROPINE MESYLATE 0.5 MG TABLET PO SCH ×2 (09:33→17:27)
[2017-12-25] MEDS: BuPROPion HCL 150 MG SR TABLET PO SCH (09:33)
[2017-12-25] MEDS: BACITRACIN 28.4 GM OINTMENT TP SCH ×2 (09:33→17:27)
[2017-12-25] MEDS: GABAPENTIN 300 MG CAPSULE PO SCH ×2 (12:18→17:27)
[2017-12-25 13:09] VITALS: BP 125/78
[2017-12-25 16:32] VITALS: BP 138/70
[2017-12-25 18:30] VITALS: BP 125/78
[2017-12-25] MEDS ORDERED: MAG HYDROX/AL HYDROX/SIMETH ES 30 ML SUSPENSION UDCUP PO PRN (18:30)
[2017-12-25] MEDS ORDERED: BENZOCAINE/MENTHOL LOZENGE MM PRN (18:30)
[2017-12-25] MEDS ORDERED: BACITRACIN 28.4 GM OINTMENT TP PRN (18:30)
[2017-12-25] MEDS ORDERED: ONDANSETRON HCL 4 MG TABLET PO PRN (18:30)
[2017-12-25] MEDS ORDERED: ACETAMINOPHEN 325 MG TABLET PO PRN (18:30)
[2017-12-25] MEDS ORDERED: ALBUTEROL SULFATE HFA 90 MCG/PUFF 8 GM INHALER IH PRN (18:30)
[2017-12-25] MEDS ORDERED: PETROLATUM,WHITE 71 GM JELLY TP PRN (18:30)
[2017-12-25] MEDS ORDERED: LOPERAMIDE HCL 2 MG CAPSULE PO PRN (18:30)
[2017-12-25] MEDS ORDERED: CloNIDine HCL 0.1 MG TABLET PO PRN (18:30)
[2017-12-25] MEDS ORDERED: MAGNESIUM HYDROXIDE SUSPENSION 30 ML UDCUP PO PRN (18:30)
[2017-12-25] MEDS ORDERED: IBUPROFEN 600 MG TABLET PO PRN (18:30)
[2017-12-25] MEDS: OLANZapine 10 MG TABLET PO SCH (20:46)
[2017-12-25] MEDS: ZOLPIDEM TARTRATE 10 MG TABLET PO PRN (20:46)
[2017-12-26 01:56] VITALS: BP 128/72
[2017-12-26] MEDS: LORazepam 2 MG TABLET PO PRN ×3 (02:47→23:59)
[2017-12-26 08:13] VITALS: BP 129/79
[2017-12-26] MEDS: OMEPRAZOLE 20 MG CAPSULE PO SCH (08:38)
[2017-12-26] MEDS: BENZTROPINE MESYLATE 0.5 MG TABLET PO SCH ×2 (08:38→16:45)
[2017-12-26] MEDS: GABAPENTIN 300 MG CAPSULE PO SCH ×3 (08:38→16:45)
[2017-12-26] MEDS: DOCUSATE SODIUM 100 MG CAPSULE PO SCH (08:38)
[2017-12-26] MEDS: BuPROPion HCL 150 MG SR TABLET PO SCH (08:38)
[2017-12-26] MEDS ORDERED: DOCUSATE SODIUM 100 MG CAPSULE PO SCH (09:00)
[2017-12-26] MEDS ORDERED: OMEPRAZOLE 20 MG CAPSULE PO SCH (09:00)
[2017-12-26] MEDS: BACITRACIN 28.4 GM OINTMENT TP SCH ×2 (10:49→16:45)
[2017-12-26 16:05] VITALS: BP 123/73
[2017-12-26] MEDS: HALOPERIDOL 5 MG TABLET PO PRN ×2 (16:45→23:59)
[2017-12-26] MEDS: ZOLPIDEM TARTRATE 10 MG TABLET PO PRN (20:33)
[2017-12-26] MEDS: OLANZapine 10 MG TABLET PO SCH (20:33)
[2017-12-27 06:44] VITALS: BP 132/78
[2017-12-27] MEDS: DOCUSATE SODIUM 100 MG CAPSULE PO SCH (08:31)
[2017-12-27] MEDS: BuPROPion HCL 150 MG SR TABLET PO SCH (08:31)
[2017-12-27] MEDS: OMEPRAZOLE 20 MG CAPSULE PO SCH (08:32)
[2017-12-27] MEDS: GABAPENTIN 300 MG CAPSULE PO SCH ×3 (08:32→16:52)
[2017-12-27] MEDS: BENZTROPINE MESYLATE 0.5 MG TABLET PO SCH ×2 (08:32→16:52)
[2017-12-27] MEDS: LORazepam 2 MG TABLET PO PRN ×2 (08:32→16:52)
[2017-12-27] MEDS: HALOPERIDOL 5 MG TABLET PO PRN ×2 (08:32→16:52)
[2017-12-27] MEDS: BACITRACIN 28.4 GM OINTMENT TP SCH ×2 (08:32→16:52)
[2017-12-27 08:56] VITALS: BP 139/79
[2017-12-27 16:02] VITALS: BP 121/76
[2017-12-27] MEDS: OLANZapine 10 MG TABLET PO SCH (20:35)
[2017-12-28 01:32] VITALS: BP 133/77
[2017-12-28] MEDS: BENZTROPINE MESYLATE 0.5 MG TABLET PO SCH ×2 (08:28→16:26)
[2017-12-28] MEDS: OMEPRAZOLE 20 MG CAPSULE PO SCH (08:28)
[2017-12-28] MEDS: GABAPENTIN 300 MG CAPSULE PO SCH ×3 (08:28→16:26)
[2017-12-28] MEDS: BuPROPion HCL 150 MG SR TABLET PO SCH (08:28)
[2017-12-28] MEDS: DOCUSATE SODIUM 100 MG CAPSULE PO SCH (08:28)
[2017-12-28] MEDS: LORazepam 2 MG TABLET PO PRN ×3 (08:29→19:17)
[2017-12-28] MEDS: BACITRACIN 28.4 GM OINTMENT TP SCH ×2 (08:30→16:26)
[2017-12-28 08:32] VITALS: BP 125/80
[2017-12-28] MEDS: HALOPERIDOL 5 MG TABLET PO PRN ×2 (08:55→16:26)
[2017-12-28 16:05] VITALS: BP 123/77
[2017-12-28] MEDS: OLANZapine 10 MG TABLET PO SCH (20:44)
[2017-12-28] MEDS: ZOLPIDEM TARTRATE 10 MG TABLET PO PRN (20:44)
[2017-12-29] MEDS: LORazepam 2 MG TABLET PO PRN ×2 (06:08→10:54)
[2017-12-29 06:13] VITALS: BP 113/60
[2017-12-29 08:08] VITALS: BP 122/79
[2017-12-29] MEDS: BuPROPion HCL 150 MG SR TABLET PO SCH (08:24)
[2017-12-29] MEDS: GABAPENTIN 300 MG CAPSULE PO SCH ×3 (08:24→16:03)
[2017-12-29] MEDS: BENZTROPINE MESYLATE 0.5 MG TABLET PO SCH ×2 (08:24→16:03)
[2017-12-29] MEDS: OMEPRAZOLE 20 MG CAPSULE PO SCH (08:24)
[2017-12-29] MEDS: DOCUSATE SODIUM 100 MG CAPSULE PO SCH (08:24)
[2017-12-29] MEDS: BACITRACIN 28.4 GM OINTMENT TP SCH ×2 (08:25→16:03)
[2017-12-29 16:05] VITALS: BP 118/77
== END 2017-12-29 17:01 | disposition home or self-care (01) | DRG 750 ==
LOC: EMS 11:41 → B3A 13:36
PROVIDERS: ADMIT Psychiatry & Neurology Psychiatry; ATTEND Psychiatry & Neurology Child & Adolescent Psychiatry
PROC: 3E0234Z Introduction of Serum, Toxoid and Vaccine into Muscle, Percutaneous Approach (ICD-10-PCS; principal; 2017-12-25)
DX: F25.1 Schizoaffective disorder, depressive type (principal); E11.9 Type 2 diabetes mellitus without complications; R45.851 Suicidal ideations; I10 Essential (primary) hypertension; F14.10 Cocaine abuse, uncomplicated; F15.10 Other stimulant abuse, uncomplicated; F17.200 Nicotine dependence, unspecified, uncomplicated; G47.00 Insomnia, unspecified; S51.812A Laceration without foreign body of left forearm, initial encounter; F41.9 Anxiety disorder, unspecified; J44.9 Chronic obstructive pulmonary disease, unspecified; X58.XXXA Exposure to other specified factors, initial encounter; Y93.89 Activity, other specified; Y92.89 Other specified places as the place of occurrence of the external cause; Z86.73 Personal history of transient ischemic attack (TIA), and cerebral infarction without residual deficits; Z88.0 Allergy status to penicillin; Z71.6 Tobacco abuse counseling; Z88.8 Allergy status to other drugs, medicaments and biological substances; Z23 Encounter for immunization
CPT/HCPCS: 80074; 87081; 90471; 99285; G0480

== ENCOUNTER 2018-02-03 13:49 | Inpatient (IN) | payer MEDICAID, OTHER ==
[~2018-02-03] VITALS: Ht 170.2 cm; Wt 71.7 kg
[~2018-02-03 13:49] MED LIST changes: -BENZ0.5T44 PO
[2018-02-03] MEDS ORDERED: SODIUM CHLORIDE 0.9% 1,000 ML IV ONE ×3 (14:15→18:00)
[2018-02-03 14:23] LABS: BASOPHILS % (AUTO) 0.7 % (0.0-2.0); EOSINOPHILS % (AUTO) 2.5 % (1.0-6.0); HEMATOCRIT 41.8 % (41-53); HEMOGLOBIN 14.1 g/dL (13.5-17.5); LYMPHOCYTES # (AUTO) 0.7 K/uL (1.0-4.8); LYMPHOCYTES % (AUTO) 10.5 % (22.0-44.0); MEAN CORPUSCULAR HEMOGLOBIN 30.7 pg (26.0-34.0); MEAN CORPUSCULAR HGB CONC 33.7 G/dL (31.0-37.0); MEAN CORPUSCULAR VOLUME 91 fL (80-100); MONOCYTES # (AUTO) 0.5 K/uL (0.1-1.0); MONOCYTES % (AUTO) 7.5 % (2.0-9.0); NEUTROPHILS # (AUTO) 5.6 K/uL (1.8-7.7); NEUTROPHILS % (AUTO) 78.8 % (40.0-70.0); PLATELET COUNT (AUTO) 234 K/uL (150-450); RED BLOOD CELL COUNT(AUTO) 4.58 MIL/uL (4.50-5.90); RED CELL DISTRIBUTION WIDTH 15.6 % (11.5-14.5)
[2018-02-03 14:50] LABS: PROTHROMBIN TIME 10.8 SEC (9.4-11.6)
[2018-02-03 14:57] LABS: AMMONIA 18 umol/L (11-32)
[2018-02-03 14:58] LABS: ANION GAP 7 mmol/L (8-16); CALCIUM, TOTAL 8.4 mg/dL (8.8-10.5); CARBON DIOXIDE 28 mmol/L (22-29); CHLORIDE 102 mmol/L (98-107); CREATININE 1.62 mg/dL (0.60-1.30); GLOMERULAR FILTR. RATE CALC 44 mL/min (>60); GLUCOSE,RANDOM 84 mg/dL (70-110); POTASSIUM 3.6 mmol/L (3.5-5.1); SODIUM SERUM 137 mmol/L (136-145); UREA NITROGEN, BLOOD 18 mg/dL (7-18)
[2018-02-03 15:04] LABS: TROPONIN I < 0.02 ng/mL (0.00-0.05)
[2018-02-03 15:23] LABS: ALANINE AMINOTRANSFERASE 167 U/L (12-78); ALBUMIN 3.6 g/dL (3.4-5.0); ALKALINE PHOSPHATASE 79 U/L (46-116); ASPARTATE AMINOTRANSFERASE 82 U/L (15-37); BILIRUBIN,TOTAL 0.6 mg/dL (0.1-1.0); CREATINE KINASE, TOTAL 225 U/L (39-308); TOTAL PROTEIN, SERUM 7.1 g/dL (6.4-8.2)
[2018-02-03] MEDS ORDERED: ACETAMINOPHEN 325 MG TABLET PO PRN ×2 (18:45→21:15)
[2018-02-03] MEDS ORDERED: ONDANSETRON HCL 4 MG/2 ML VIAL IVP PRN ×2 (18:45→21:15)
[2018-02-03] MEDS ORDERED: ZOLPIDEM TARTRATE 5 MG TABLET PO PRN (21:15)
[2018-02-03] MEDS ORDERED: BISACODYL 10 MG RECTAL RECTAL SUPPOSITORY PR PRN (21:15)
[2018-02-03] MEDS ORDERED: MORPHINE SULFATE 4 MG/ML SYRINGE IVP PRN (21:15)
[2018-02-03] MEDS ORDERED: MAGNESIUM HYDROXIDE SUSPENSION 30 ML UDCUP PO PRN (21:15)
[2018-02-03] MEDS ORDERED: HYDROCODONE/ACETAMINOPHEN 5-325 MG TABLET PO PRN (21:15)
[2018-02-03 21:39] VITALS: BP 98/61
[2018-02-03] MEDS ORDERED: MAGNESIUM SULFATE 2 GM, MVI, ADULT NO.1 WITH VIT K 10 ML, THIAMINE HCL 100 MG, FOLIC AC... IV ONE ×5 (22:00)
[2018-02-03 23:23] VITALS: BP 106/59
[2018-02-04] MEDS: HEPARIN SODIUM,PORCINE 5,000 UNITS/ML VIAL SQ SCH ×2 (00:11→07:53)
[2018-02-04 04:17] VITALS: BP 122/72
[2018-02-04 04:28] LABS: APPEARANCE,URINE CLOUDY (CLEAR); GLUCOSE, URINE (UA) NEGATIVE (NEGATIVE); KETONES,URINE TRACE mg/dL (NEGATIVE); LEUKOCYTE ESTERASE ,URINE SMALL (NEGATIVE); NITRATE,URINE NEGATIVE (NEGATIVE); OCCULT BLOOD,URINE NEGATIVE (NEGATIVE); PH,URINE 5.5 (5.0-8.0); PROTEIN,URINE TRACE (NEGATIVE)
[2018-02-04 04:33] LABS: BILIRUBIN,URINE PRELIM. POSITIVE (NEGATIVE)
[2018-02-04 04:37] LABS: AMPHET/METH SCREEN,URINE NEGATIVE (NEGATIVE); BARBITURATE SCREEN, URINE NEGATIVE (NEGATIVE); BENZODIAZEPINES SCREEN,URINE NEGATIVE (NEGATIVE); CANNABINOID SCREEN,URINE NEGATIVE (NEGATIVE); COCAINE SCREEN,URINE NEGATIVE (NEGATIVE); METHADONE SCREEN, URINE NEGATIVE (NEGATIVE); OPIATE SCREEN,URINE POSITIVE (NEGATIVE)
[2018-02-04 04:38] LABS: BACTERIA,URINE Few /HPF (None Seen); SQUAMOUS EPITHELIAL CELL,UR Few /LPF (None Seen)
[2018-02-04 04:39] LABS: COARSE GRANULAR CASTS,URINE 0-2 /LPF (None Seen); FINE GRANULAR CASTS,URINE 0-2 /LPF (None Seen)
[2018-02-04 04:41] LABS: PHENCYCLIDINE SCREEN,URINE NEGATIVE (NEGATIVE)
[2018-02-04 06:32] LABS: BASOPHILS % (AUTO) 0.3 % (0.0-2.0); EOSINOPHILS % (AUTO) 5.7 % (1.0-6.0); HEMATOCRIT 35.7 % (41-53); HEMOGLOBIN 12.1 g/dL (13.5-17.5); LYMPHOCYTES # (AUTO) 1.6 K/uL (1.0-4.8); LYMPHOCYTES % (AUTO) 22.1 % (22.0-44.0); MEAN CORPUSCULAR HGB CONC 33.9 G/dL (31.0-37.0); MEAN CORPUSCULAR VOLUME 91 fL (80-100); MONOCYTES # (AUTO) 1.1 K/uL (0.1-1.0); MONOCYTES % (AUTO) 14.3 % (2.0-9.0); NEUTROPHILS # (AUTO) 4.2 K/uL (1.8-7.7); NEUTROPHILS % (AUTO) 57.6 % (40.0-70.0); PLATELET COUNT (AUTO) 208 K/uL (150-450); RED CELL DISTRIBUTION WIDTH 15.5 % (11.5-14.5)
[2018-02-04 06:38] LABS: CALCIUM, TOTAL 7.9 mg/dL (8.8-10.5); CREATININE 1.54 mg/dL (0.60-1.30); POTASSIUM 3.4 mmol/L (3.5-5.1)
[2018-02-04 07:07] VITALS: BP 124/77
[2018-02-04] MEDS ORDERED: PANTOPRAZOLE SODIUM 40 MG DR TABLET PO SCH (09:00)
[2018-02-04] MEDS ORDERED: DOCUSATE SODIUM 100 MG CAPSULE PO SCH (09:00)
[2018-02-04 11:12] VITALS: BP 131/92
== END 2018-02-04 12:00 | disposition left against medical advice (07) | DRG 52 ==
LOC: EMS 13:50 → 5N 20:13
PROVIDERS: ADMIT Internal Medicine; ATTEND Internal Medicine
DX: G92 Toxic encephalopathy (principal); I95.9 Hypotension, unspecified; F20.9 Schizophrenia, unspecified; E11.9 Type 2 diabetes mellitus without complications; F17.200 Nicotine dependence, unspecified, uncomplicated; I10 Essential (primary) hypertension; J44.9 Chronic obstructive pulmonary disease, unspecified; Z53.21 Procedure and treatment not carried out due to patient leaving prior to being seen by health care provider; Z86.73 Personal history of transient ischemic attack (TIA), and cerebral infarction without residual deficits; Z88.0 Allergy status to penicillin; Z88.8 Allergy status to other drugs, medicaments and biological substances
CPT/HCPCS: 70450; 74176; 80307; 87086; 93005; 99291; G0480; J1644; J3411; J3475; J3490; J7030

== ENCOUNTER 2018-03-14 18:38 | Inpatient (IN) | payer MEDICAID, OTHER ==
[~2018-03-14] VITALS: Ht 170.2 cm; Wt 72.6 kg
[2018-03-14] MEDS ORDERED: ANTIBIOTIC PO (19:05)
[2018-03-14] MEDS ORDERED: PAIN MEDICATION PO (19:05)
[2018-03-14 19:08] LABS: GLUCOSE,POINT OF CARE 133 MG/DL (70-110)
[2018-03-14 19:39] LABS: BASOPHILS % (AUTO) 0.8 % (0.0-2.0); EOSINOPHILS % (AUTO) 5.6 % (1.0-6.0); HEMATOCRIT 31.1 % (41-53); HEMOGLOBIN 10.5 g/dL (13.5-17.5); LYMPHOCYTES # (AUTO) 2.5 K/uL (1.0-4.8); LYMPHOCYTES % (AUTO) 33.3 % (22.0-44.0); MEAN CORPUSCULAR HEMOGLOBIN 30.5 pg (26.0-34.0); MEAN CORPUSCULAR HGB CONC 33.7 G/dL (31.0-37.0); MEAN CORPUSCULAR VOLUME 90 fL (80-100); MONOCYTES # (AUTO) 1.3 K/uL (0.1-1.0); MONOCYTES % (AUTO) 17.9 % (2.0-9.0); NEUTROPHILS # (AUTO) 3.1 K/uL (1.8-7.7); NEUTROPHILS % (AUTO) 42.4 % (40.0-70.0); PLATELET COUNT (AUTO) 361 K/uL (150-450); RED BLOOD CELL COUNT(AUTO) 3.44 MIL/uL (4.50-5.90); RED CELL DISTRIBUTION WIDTH 15.2 % (11.5-14.5)
[2018-03-14 19:48] LABS: ANION GAP 9 mmol/L (8-16); CALCIUM, TOTAL 8.6 mg/dL (8.8-10.5); CARBON DIOXIDE 24 mmol/L (22-29); CHLORIDE 104 mmol/L (98-107); CREATININE 1.55 mg/dL (0.60-1.30); GLOMERULAR FILTR. RATE CALC 56 mL/min (>60); GLUCOSE,RANDOM 107 mg/dL (70-110); POTASSIUM 3.8 mmol/L (3.5-5.1); SODIUM SERUM 137 mmol/L (136-145); UREA NITROGEN, BLOOD 34 mg/dL (7-18)
[2018-03-14 19:55] LABS: ALANINE AMINOTRANSFERASE 47 U/L (12-78); ALBUMIN 2.9 g/dL (3.4-5.0); ALKALINE PHOSPHATASE 79 U/L (46-116); ASPARTATE AMINOTRANSFERASE 48 U/L (15-37); BILIRUBIN,TOTAL 0.3 mg/dL (0.1-1.0); TOTAL PROTEIN, SERUM 6.6 g/dL (6.4-8.2)
[2018-03-14] MEDS ORDERED: ZOLPIDEM TARTRATE 10 MG TABLET PO PRN (21:00)
[2018-03-15 03:07] LABS: CHOL/HDL RATIO 3.7 (4.2-7.3); CHOLESTEROL 138 mg/dL (131-200); HDL CHOLESTEROL 37 mg/dL (40-60); LDL CHOL (CALC.) 90 mg/dL (0-130); TRIGLYCERIDES 54 mg/dL (15-150)
[2018-03-15 06:25] LABS: GLUCOSE,POINT OF CARE 106 MG/DL (70-110)
[2018-03-15] MEDS: LORazepam 2 MG TABLET PO PRN ×2 (09:36→14:17)
[2018-03-15] MEDS ORDERED: DiphenhydrAMINE HCL 50 MG/ML VIAL IM ONE (14:15)
[2018-03-15] MEDS ORDERED: LORazepam 2 MG/ML VIAL IM ONE (14:15)
[2018-03-15] MEDS ORDERED: HALOPERIDOL LACTATE 5 MG/ML VIAL IM ONE (14:15)
[2018-03-15] MEDS: HALOPERIDOL 5 MG TABLET PO PRN (14:17)
[2018-03-15 14:19] LABS: GLUCOSE,POINT OF CARE 137 MG/DL (70-110)
[2018-03-15 16:43] LABS: GLUCOSE,POINT OF CARE 113 MG/DL (70-110)
[2018-03-15] MEDS ORDERED: DOCUSATE SODIUM 100 MG CAPSULE PO PRN (18:00)
[2018-03-15] MEDS ORDERED: MAGNESIUM HYDROXIDE SUSPENSION 30 ML UDCUP PO PRN (18:00)
[2018-03-15] MEDS ORDERED: IBUPROFEN 400 MG TABLET PO PRN (18:00)
[2018-03-15] MEDS ORDERED: ONDANSETRON HCL 4 MG TABLET PO PRN (18:00)
[2018-03-15] MEDS ORDERED: ALBUTEROL SULFATE HFA 90 MCG/PUFF 8 GM INHALER IH PRN (18:00)
[2018-03-15] MEDS ORDERED: ACETAMINOPHEN 325 MG TABLET PO PRN (18:00)
[2018-03-15] MEDS ORDERED: INSULIN LISPRO 100 UNITS/ML SQ PRN (18:00)
[2018-03-15] MEDS ORDERED: CloNIDine HCL 0.1 MG TABLET PO PRN (18:00)
[2018-03-15] MEDS ORDERED: DEXTROSE 50%-WATER 25 GM/50 ML SYRINGE IVP PRN (18:00)
[2018-03-15] MEDS ORDERED: MAG HYDROX/AL HYDROX/SIMETH ES 30 ML SUSPENSION UDCUP PO PRN (18:00)
[2018-03-15] MEDS ORDERED: LOPERAMIDE HCL 2 MG CAPSULE PO PRN (18:00)
[2018-03-15] MEDS ORDERED: PETROLATUM,WHITE 71 GM JELLY TP PRN (18:00)
[2018-03-16] MEDS: LORazepam 2 MG TABLET PO PRN ×3 (02:32→23:40)
[2018-03-16 02:34] VITALS: BP 125/62
[2018-03-16 06:09] LABS: GLUCOMETER DEV NAME(LOC) 3EC; GLUCOSE,POINT OF CARE 98 MG/DL (70-110)
[2018-03-16 06:22] LABS: BASOPHILS % (AUTO) 0.6 % (0.0-2.0); EOSINOPHILS % (AUTO) 10.4 % (1.0-6.0); HEMATOCRIT 34.3 % (41-53); HEMOGLOBIN 11.8 g/dL (13.5-17.5); LYMPHOCYTES # (AUTO) 1.5 K/uL (1.0-4.8); LYMPHOCYTES % (AUTO) 28.3 % (22.0-44.0); MEAN CORPUSCULAR HGB CONC 34.2 G/dL (31.0-37.0); MEAN CORPUSCULAR VOLUME 90 fL (80-100); MONOCYTES # (AUTO) 0.7 K/uL (0.1-1.0); MONOCYTES % (AUTO) 13.2 % (2.0-9.0); NEUTROPHILS # (AUTO) 2.6 K/uL (1.8-7.7); NEUTROPHILS % (AUTO) 47.5 % (40.0-70.0); PLATELET COUNT (AUTO) 384 K/uL (150-450); RED CELL DISTRIBUTION WIDTH 15.3 % (11.5-14.5)
[2018-03-16 06:43] LABS: ALANINE AMINOTRANSFERASE 46 U/L (12-78); ALBUMIN 2.7 g/dL (3.4-5.0); ALKALINE PHOSPHATASE 60 U/L (46-116); ANION GAP 6 mmol/L (8-16); ASPARTATE AMINOTRANSFERASE 42 U/L (15-37); BILIRUBIN,TOTAL 0.3 mg/dL (0.1-1.0); CALCIUM, TOTAL 8.4 mg/dL (8.8-10.5); CARBON DIOXIDE 26 mmol/L (22-29); CHLORIDE 105 mmol/L (98-107); CHOL/HDL RATIO 4.2 (4.2-7.3); CHOLESTEROL 159 mg/dL (131-200); CREATININE 0.87 mg/dL (0.60-1.30); GLOMERULAR FILTR. RATE CALC > 60 mL/min (>60); GLUCOSE,RANDOM 108 mg/dL (70-110); HDL CHOLESTEROL 38 mg/dL (40-60); LDL CHOL (CALC.) 104 mg/dL (0-130); POTASSIUM 3.8 mmol/L (3.5-5.1); SODIUM SERUM 137 mmol/L (136-145); THYROID STIMULATING HORMONE 1.68 uIU/mL (0.36-3.74); TOTAL PROTEIN, SERUM 6.5 g/dL (6.4-8.2); TRIGLYCERIDES 84 mg/dL (15-150); UREA NITROGEN, BLOOD 17 mg/dL (7-18)
[2018-03-16 07:36] LABS: HEMOGLOBIN A1C 5.4 % (4.5-6.2)
[2018-03-16] MEDS: NICOTINE 14 MG/24 HOUR PATCH TD SCH (08:05)
[2018-03-16 08:25] VITALS: BP 147/85
[2018-03-16] MEDS: GABAPENTIN 300 MG CAPSULE PO SCH ×3 (09:32→16:34)
[2018-03-16] MEDS: BuPROPion HCL 150 MG SR TABLET PO SCH (09:32)
[2018-03-16] MEDS: SULFAMETHOX/TRIMETH DS 800-160 MG/TABLET PO SCH ×2 (09:35→16:34)
[2018-03-16] MEDS: LEVOFLOXACIN 500 MG TABLET PO SCH (10:34)
[2018-03-16 11:19] LABS: GLUCOMETER DEV NAME(LOC) 3EC; GLUCOSE,POINT OF CARE 75 MG/DL (70-110)
[2018-03-16] MEDS: ARIPiprazole 10 MG TABLET PO SCH ×2 (12:47→21:07)
[2018-03-16] MEDS: BusPIRone HCL 15 MG TABLET PO SCH ×2 (12:47→16:34)
[2018-03-16] MEDS: FERROUS SULFATE 325 MG EC TABLET PO SCH ×2 (12:48→16:34)
[2018-03-16 16:30] VITALS: BP 124/79
[2018-03-16 17:14] LABS: GLUCOMETER DEV NAME(LOC) 3EC; GLUCOSE,POINT OF CARE 95 MG/DL (70-110)
[2018-03-16] MEDS ORDERED: OLANZapine 10 MG TABLET PO SCH (21:00)
[2018-03-17] MEDS: LORazepam 2 MG TABLET PO PRN ×3 (06:16→15:43)
[2018-03-17 06:29] LABS: GLUCOMETER DEV NAME(LOC) 3EC; GLUCOSE,POINT OF CARE 97 MG/DL (70-110)
[2018-03-17] MEDS: FERROUS SULFATE 325 MG EC TABLET PO SCH ×3 (06:39→17:02)
[2018-03-17] MEDS: SULFAMETHOX/TRIMETH DS 800-160 MG/TABLET PO SCH ×2 (08:03→16:07)
[2018-03-17] MEDS: LEVOFLOXACIN 500 MG TABLET PO SCH (08:03)
[2018-03-17] MEDS: ARIPiprazole 10 MG TABLET PO SCH (08:03)
[2018-03-17] MEDS: HALOPERIDOL 5 MG TABLET PO PRN ×2 (08:03→15:43)
[2018-03-17] MEDS: GABAPENTIN 300 MG CAPSULE PO SCH ×3 (08:03→16:08)
[2018-03-17] MEDS: BuPROPion HCL 150 MG SR TABLET PO SCH (08:04)
[2018-03-17] MEDS: BusPIRone HCL 15 MG TABLET PO SCH ×2 (08:04→16:07)
[2018-03-17 08:21] VITALS: BP 139/90
[2018-03-17] MEDS ORDERED: MULTIVITAMINS WITH MINERALS, THERAPEUTIC TABLET PO SCH (09:00)
[2018-03-17] MEDS ORDERED: OMEPRAZOLE 20 MG CAPSULE PO SCH (09:00)
[2018-03-17] MEDS: NICOTINE 14 MG/24 HOUR PATCH TD SCH (10:57)
[2018-03-17] MEDS ORDERED: BUSP15 PO (15:29)
[2018-03-17] MEDS ORDERED: ARIP10TA8 PO (15:29)
[2018-03-17] MEDS ORDERED: LEVO500 PO (15:34)
[2018-03-17] MEDS ORDERED: FERR-89 PO (15:34)
[2018-03-17] MEDS ORDERED: SULF1TAB42 PO (15:34)
[2018-03-17] MEDS ORDERED: NICO-703 TD (15:35)
[2018-03-17] MEDS ORDERED: MULT-1239 PO (15:37)
[2018-03-17 17:08] LABS: GLUCOMETER DEV NAME(LOC) 3EC; GLUCOSE,POINT OF CARE 112 MG/DL (70-110)
[2018-03-17 17:29] VITALS: BP 123/74
== END 2018-03-17 18:45 | disposition home or self-care (01) | DRG 750 ==
LOC: EMS 18:39 → 3EC 03-15 16:52
PROVIDERS: ADMIT Psychiatry & Neurology Child & Adolescent Psychiatry; ATTEND Psychiatry & Neurology Child & Adolescent Psychiatry
DX: F25.1 Schizoaffective disorder, depressive type (principal); E11.621 Type 2 diabetes mellitus with foot ulcer; R45.851 Suicidal ideations; D64.9 Anemia, unspecified; L97.519 Non-pressure chronic ulcer of other part of right foot with unspecified severity; I10 Essential (primary) hypertension; F14.90 Cocaine use, unspecified, uncomplicated; F15.90 Other stimulant use, unspecified, uncomplicated; G40.909 Epilepsy, unspecified, not intractable, without status epilepticus; J44.9 Chronic obstructive pulmonary disease, unspecified; K21.9 Gastro-esophageal reflux disease without esophagitis; K59.09 Other constipation; M54.40 Lumbago with sciatica, unspecified side; F41.9 Anxiety disorder, unspecified; G47.00 Insomnia, unspecified; G89.29 Other chronic pain; F17.210 Nicotine dependence, cigarettes, uncomplicated; Z88.0 Allergy status to penicillin; Z88.6 Allergy status to analgesic agent; Z86.73 Personal history of transient ischemic attack (TIA), and cerebral infarction without residual deficits; Z79.899 Other long term (current) drug therapy; I25.2 Old myocardial infarction
CPT/HCPCS: 83036; 84443; 87081; 99285; G0480

== ENCOUNTER → 2018-07-14 | Outpatient (CLI) | payer OTHER ==
[~2018-07-14] VITALS: Ht 160 cm; Wt 68.5 kg
[~2018-07-14] MED LIST changes: +ARIP10TA8 PO; +ARIP20TA10 PO; +BUSP15 PO; +DOCU250C91 PO; -DSS100 PO; +FERR-89 PO; +LEVO500 PO; +MULT-1239 PO; +NICO-703 TD; -OLAN10TA3 PO; +SULF1TAB42 PO; +TRAZ-220 PO
[2018-07-14 10:10] VITALS: BP 131/54
== END | disposition home or self-care (01) ==
LOC: HBOWC 09:44
PROVIDERS: ATTEND Podiatrist
DX: E11.621 Type 2 diabetes mellitus with foot ulcer (principal); L97.512 Non-pressure chronic ulcer of other part of right foot with fat layer exposed; K21.9 Gastro-esophageal reflux disease without esophagitis; J44.9 Chronic obstructive pulmonary disease, unspecified; I10 Essential (primary) hypertension; I25.2 Old myocardial infarction; M54.40 Lumbago with sciatica, unspecified side; G89.29 Other chronic pain; F29 Unspecified psychosis not due to a substance or known physiological condition; F41.9 Anxiety disorder, unspecified; F20.0 Paranoid schizophrenia; F14.10 Cocaine abuse, uncomplicated; F15.10 Other stimulant abuse, uncomplicated; F17.210 Nicotine dependence, cigarettes, uncomplicated; Z86.73 Personal history of transient ischemic attack (TIA), and cerebral infarction without residual deficits
CPT/HCPCS: 11042

== ENCOUNTER 2018-10-25 15:26 | Emergency (ER) | payer OTHER ==
[~2018-10-25] VITALS: Ht 160 cm; Wt 66.5 kg
[~2018-10-25 15:26] MED LIST changes: -ARIP10TA8 PO; -BUPR150SR PO; +BUSP10TA23 PO; -BUSP15 PO; -FERR-89 PO; +GABA-529 PO; -GABA-531 PO; -LEVO500 PO; -MULT-1239 PO; -NICO-703 TD; -SULF1TAB42 PO
[2018-10-25 16:29] LABS: GLUCOSE,POINT OF CARE 91 MG/DL (70-110)
[2018-10-25] MEDS ORDERED: 0.9% SODIUM CHLORIDE 10 ML SYRINGE IVP PRN (16:30)
[2018-10-25 16:47] LABS: BASOPHILS % (AUTO) 0.8 % (0.0-2.0); EOSINOPHILS % (AUTO) 2.4 % (1.0-6.0); HEMATOCRIT 30.8 % (41-53); HEMOGLOBIN 9.7 g/dL (13.5-17.5); LYMPHOCYTES # (AUTO) 2.5 K/uL (1.0-4.8); LYMPHOCYTES % (AUTO) 16.7 % (22.0-44.0); MEAN CORPUSCULAR HEMOGLOBIN 25.7 pg (26.0-34.0); MEAN CORPUSCULAR HGB CONC 31.5 G/dL (31.0-37.0); MEAN CORPUSCULAR VOLUME 82 fL (80-100); MONOCYTES # (AUTO) 1.4 K/uL (0.1-1.0); MONOCYTES % (AUTO) 9.5 % (2.0-9.0); NEUTROPHILS # (AUTO) 10.4 K/uL (1.8-7.7); NEUTROPHILS % (AUTO) 70.6 % (40.0-70.0); PLATELET COUNT (AUTO) 584 K/uL (150-450); RED BLOOD CELL COUNT(AUTO) 3.77 MIL/uL (4.50-5.90); RED CELL DISTRIBUTION WIDTH 16.4 % (11.5-14.5)
[2018-10-25 16:58] LABS: PROTHROMBIN TIME 10.4 SEC (9.4-11.6)
[2018-10-25 17:04] LABS: LACTIC ACID 1.4 mmol/L (0.4-2.0)
[2018-10-25 17:09] LABS: ANION GAP 9 mmol/L (8-16); CALCIUM, TOTAL 9.1 mg/dL (8.8-10.5); CARBON DIOXIDE 28 mmol/L (22-29); CHLORIDE 102 mmol/L (98-107); CREATININE 0.59 mg/dL (0.60-1.30); GLOMERULAR FILTR. RATE CALC > 60 mL/min (>60); GLUCOSE,RANDOM 97 mg/dL (70-110); SODIUM SERUM 139 mmol/L (136-145); UREA NITROGEN, BLOOD 11 mg/dL (7-18)
[2018-10-25 17:13] LABS: ALANINE AMINOTRANSFERASE 40 U/L (12-78); ALBUMIN 2.2 g/dL (3.4-5.0); ALKALINE PHOSPHATASE 181 U/L (46-116); ASPARTATE AMINOTRANSFERASE 31 U/L (15-37); BILIRUBIN,TOTAL 0.3 mg/dL (0.1-1.0); CREATINE KINASE, TOTAL ONLY 31 U/L (39-308); TOTAL PROTEIN, SERUM 7.3 g/dL (6.4-8.2)
[2018-10-25 17:34] LABS: B-TYPE NATRIURETIC PEPTIDE 189 pg/mL (0-100)
[2018-10-25 19:55] VITALS: BP 135/84
== END 2018-10-25 21:06 | disposition home or self-care (01) ==
LOC: EMS 15:28
DX: M86.9 Osteomyelitis, unspecified (principal); G89.29 Other chronic pain; J44.9 Chronic obstructive pulmonary disease, unspecified; I25.2 Old myocardial infarction; E11.9 Type 2 diabetes mellitus without complications; I10 Essential (primary) hypertension; F32.9 Major depressive disorder, single episode, unspecified; F20.9 Schizophrenia, unspecified; F41.9 Anxiety disorder, unspecified; F17.210 Nicotine dependence, cigarettes, uncomplicated; Z45.2 Encounter for adjustment and management of vascular access device; Z86.73 Personal history of transient ischemic attack (TIA), and cerebral infarction without residual deficits; Z88.0 Allergy status to penicillin; Z88.6 Allergy status to analgesic agent
CPT/HCPCS: 83605; 87040; 93005

== ENCOUNTER 2018-11-06 14:14 | Inpatient (IN) | payer OTHER ==
[~2018-11-06] VITALS: Ht 167.6 cm; Wt 67.5 kg
[2018-11-06] MEDS ORDERED: BUSP5TAB20 PO (14:38)
[2018-11-06] MEDS ORDERED: FERR-89 PO (14:38)
[2018-11-06] MEDS ORDERED: GABA-531 PO (14:38)
[2018-11-06] MEDS ORDERED: FOLI1 PO (14:38)
[2018-11-06] MEDS ORDERED: IBUP-2071 PO (14:38)
[2018-11-06] MEDS ORDERED: ASCO500T9 PO (14:38)
[2018-11-06] MEDS ORDERED: IBUPROFEN 800 MG TABLET PO ONE (14:45)
[2018-11-06] MEDS ORDERED: ACETAMINOPHEN 325 MG TABLET PO PRN (16:00)
[2018-11-06] MEDS ORDERED: ONDANSETRON HCL 4 MG/2 ML VIAL IVP PRN (16:00)
[2018-11-06] MEDS ORDERED: 0.9% SODIUM CHLORIDE 10 ML SYRINGE IVP PRN (16:00)
[2018-11-06] MEDS ORDERED: VANC1IV IV (16:17)
[2018-11-06] MEDS ORDERED: CEFE2I IV (16:17)
[2018-11-06 17:29] LABS: GLUCOSE,POINT OF CARE 129 MG/DL (70-110)
[2018-11-06 17:56] LABS: BASOPHILS % (AUTO) 1.1 % (0.0-2.0); EOSINOPHILS % (AUTO) 3.9 % (1.0-6.0); HEMATOCRIT 31.1 % (41-53); HEMOGLOBIN 9.9 g/dL (13.5-17.5); LYMPHOCYTES # (AUTO) 1.8 K/uL (1.0-4.8); LYMPHOCYTES % (AUTO) 22.1 % (22.0-44.0); MEAN CORPUSCULAR HEMOGLOBIN 26.2 pg (26.0-34.0); MEAN CORPUSCULAR HGB CONC 31.8 G/dL (31.0-37.0); MEAN CORPUSCULAR VOLUME 82 fL (80-100); MONOCYTES # (AUTO) 0.9 K/uL (0.1-1.0); MONOCYTES % (AUTO) 11.3 % (2.0-9.0); NEUTROPHILS # (AUTO) 5.1 K/uL (1.8-7.7); NEUTROPHILS % (AUTO) 61.6 % (40.0-70.0); PLATELET COUNT (AUTO) 524 K/uL (150-450); RED BLOOD CELL COUNT(AUTO) 3.77 MIL/uL (4.50-5.90); RED CELL DISTRIBUTION WIDTH 16.2 % (11.5-14.5)
[2018-11-06 18:07] LABS: ANION GAP 10 mmol/L (8-16); CALCIUM, TOTAL 9.2 mg/dL (8.8-10.5); CARBON DIOXIDE 26 mmol/L (22-29); CHLORIDE 103 mmol/L (98-107); CREATININE 0.74 mg/dL (0.60-1.30); GLOMERULAR FILTR. RATE CALC > 60 mL/min (>60); GLUCOSE,RANDOM 111 mg/dL (70-110); POTASSIUM 3.6 mmol/L (3.5-5.1); SODIUM SERUM 139 mmol/L (136-145); UREA NITROGEN, BLOOD 17 mg/dL (7-18)
[2018-11-06 18:13] LABS: ALANINE AMINOTRANSFERASE 53 U/L (12-78); ALBUMIN 2.6 g/dL (3.4-5.0); ALKALINE PHOSPHATASE 166 U/L (46-116); ASPARTATE AMINOTRANSFERASE 40 U/L (15-37); BILIRUBIN,TOTAL 0.3 mg/dL (0.1-1.0); TOTAL PROTEIN, SERUM 7.4 g/dL (6.4-8.2)
[2018-11-06] MEDS ORDERED: VANCOMYCIN HCL/D5W 1 GM/200 ML BAG IV SCH (20:30)
[2018-11-06] MEDS ORDERED: CEFEPIME HCL 2 GM/VIAL IV SCH (20:30)
[2018-11-06] MEDS ORDERED: IBUPROFEN 800 MG TABLET PO PRN (20:30)
[2018-11-06] MEDS: BusPIRone HCL 5 MG TABLET PO SCH (21:45)
[2018-11-06] MEDS: GABAPENTIN 300 MG CAPSULE PO SCH (21:45)
[2018-11-06] MEDS: CEFEPIME HCL 2 GM in DEXTROSE 5%-WATER 50 ML IV SCH (22:54)
[2018-11-06 23:36] VITALS: BP 140/72
[2018-11-07] MEDS: VANCOMYCIN HCL 1.5 GM in DEXTROSE 5%-WATER 250 ML IV SCH ×2 (00:15→08:12)
[2018-11-07] MEDS ORDERED: PNEUMOCOCCAL VACCINE POLYVALENT 0.5 ML VIAL [PPSV23] IM ONE (03:00)
[2018-11-07 04:10] VITALS: BP 138/74
[2018-11-07 04:39] VITALS: BP 142/76
[2018-11-07 04:49] LABS: BASOPHILS % (AUTO) 0.5 % (0.0-2.0); EOSINOPHILS % (AUTO) 6.5 % (1.0-6.0); HEMATOCRIT 28.3 % (41-53); HEMOGLOBIN 9.5 g/dL (13.5-17.5); LYMPHOCYTES # (AUTO) 1.7 K/uL (1.0-4.8); LYMPHOCYTES % (AUTO) 21.1 % (22.0-44.0); MEAN CORPUSCULAR HEMOGLOBIN 27.3 pg (26.0-34.0); MEAN CORPUSCULAR HGB CONC 33.4 G/dL (31.0-37.0); MEAN CORPUSCULAR VOLUME 82 fL (80-100); MONOCYTES % (AUTO) 12.3 % (2.0-9.0); NEUTROPHILS # (AUTO) 4.8 K/uL (1.8-7.7); NEUTROPHILS % (AUTO) 59.6 % (40.0-70.0); PLATELET COUNT (AUTO) 499 K/uL (150-450); RED BLOOD CELL COUNT(AUTO) 3.46 MIL/uL (4.50-5.90); RED CELL DISTRIBUTION WIDTH 16.6 % (11.5-14.5)
[2018-11-07 05:25] LABS: ALANINE AMINOTRANSFERASE 48 U/L (12-78); ALBUMIN 2.4 g/dL (3.4-5.0); ALKALINE PHOSPHATASE 143 U/L (46-116); ANION GAP 10 mmol/L (8-16); ASPARTATE AMINOTRANSFERASE 37 U/L (15-37); BILIRUBIN,TOTAL 0.3 mg/dL (0.1-1.0); CALCIUM, TOTAL 9.2 mg/dL (8.8-10.5); CARBON DIOXIDE 25 mmol/L (22-29); CHLORIDE 104 mmol/L (98-107); CREATININE 0.61 mg/dL (0.60-1.30); GLOMERULAR FILTR. RATE CALC > 60 mL/min (>60); GLUCOSE,RANDOM 122 mg/dL (70-110); POTASSIUM 3.4 mmol/L (3.5-5.1); SODIUM SERUM 139 mmol/L (136-145); TOTAL PROTEIN, SERUM 6.8 g/dL (6.4-8.2); UREA NITROGEN, BLOOD 15 mg/dL (7-18)
[2018-11-07] MEDS: CEFEPIME HCL 2 GM in DEXTROSE 5%-WATER 50 ML IV SCH ×2 (07:34→14:08)
[2018-11-07 07:38] LABS: GLUCOMETER DEV NAME(LOC) AHU.; GLUCOSE,POINT OF CARE 87 MG/DL (70-110)
[2018-11-07] MEDS: BusPIRone HCL 5 MG TABLET PO SCH ×2 (07:49→16:41)
[2018-11-07] MEDS ORDERED: FERROUS SULFATE 325 MG EC TABLET PO SCH (08:00)
[2018-11-07] MEDS: GABAPENTIN 300 MG CAPSULE PO SCH ×2 (08:03→16:41)
[2018-11-07 08:46] VITALS: BP 144/78
[2018-11-07] MEDS ORDERED: OMEPRAZOLE 20 MG CAPSULE PO SCH (09:00)
[2018-11-07] MEDS ORDERED: ARIPiprazole 10 MG TABLET PO SCH (09:00)
[2018-11-07] MEDS ORDERED: FOLIC ACID 1 MG TABLET PO SCH (09:00)
[2018-11-07] MEDS ORDERED: ASCORBIC ACID 500 MG TABLET PO SCH (09:00)
[2018-11-07 10:05] LABS: PROTHROMBIN TIME 10.1 SEC (9.4-11.6)
[2018-11-07 11:44] LABS: GLUCOMETER DEV NAME(LOC) AHU.; GLUCOSE,POINT OF CARE 101 MG/DL (70-110)
[2018-11-07] MEDS ORDERED: LORazepam 2 MG/ML VIAL IVP ONE ×2 (12:00→17:00)
[2018-11-07 12:48] VITALS: BP 138/69
[2018-11-07] MEDS ORDERED: VANCOMYCIN HCL 1.25 GM in DEXTROSE 5%-WATER 250 ML IV SCH (16:00)
[2018-11-07 16:35] VITALS: BP 130/62
[2018-11-07] MEDS ORDERED: HEPARIN SODIUM 1000 UNITS/NS 500 ML ONE (16:43)
[2018-11-07 18:14] LABS: GLUCOMETER DEV NAME(LOC) AHU.; GLUCOSE,POINT OF CARE 110 MG/DL (70-110)
[2018-11-07 20:09] VITALS: BP 146/92
== END 2018-11-07 20:36 | DRG 206 ==
LOC: EMS 14:14 → AHU 17:38
PROVIDERS: ADMIT Hospitalist; ATTEND Hospitalist
PROC: 02HV33Z Insertion of Infusion Device into Superior Vena Cava, Percutaneous Approach (ICD-10-PCS; principal; 2018-11-07)
DX: T82.524A Displacement of infusion catheter, initial encounter (principal); E11.69 Type 2 diabetes mellitus with other specified complication; M86.8X7 Other osteomyelitis, ankle and foot; F20.9 Schizophrenia, unspecified; F41.9 Anxiety disorder, unspecified; I10 Essential (primary) hypertension; F32.9 Major depressive disorder, single episode, unspecified; J44.9 Chronic obstructive pulmonary disease, unspecified; G89.29 Other chronic pain; F17.210 Nicotine dependence, cigarettes, uncomplicated; M54.5 Low back pain; Y84.8 Other medical procedures as the cause of abnormal reaction of the patient, or of later complication, without mention of misadventure at the time of the procedure; Y92.89 Other specified places as the place of occurrence of the external cause; Z83.3 Family history of diabetes mellitus; Z82.49 Family history of ischemic heart disease and other diseases of the circulatory system; Z86.73 Personal history of transient ischemic attack (TIA), and cerebral infarction without residual deficits; I25.2 Old myocardial infarction; Z88.0 Allergy status to penicillin; Z88.6 Allergy status to analgesic agent
CPT/HCPCS: 36569; 76937; 87081; G0378; J0692; J1644; J2060; J3370; J7060

== ENCOUNTER 2018-12-12 23:31 | Emergency (ER) | payer OTHER ==
[~2018-12-12] VITALS: Ht 172.7 cm; Wt 72.7 kg
[~2018-12-12 23:31] MED LIST changes: +ASCO500T9 PO; -BUSP10TA23 PO; +BUSP5TAB20 PO; +CEFE2I IV; -DOCU250C91 PO; +FERR-89 PO; +FOLI1 PO; -GABA-529 PO; +GABA-531 PO; +IBUP-2071 PO; -TRAZ-220 PO; +VANC1IV IV
[2018-12-13] MEDS: MORPHINE SULFATE 2 MG/ML SYRINGE IM ONE (00:11)
[2018-12-13 00:59] VITALS: BP 137/86
== END 2018-12-13 01:12 | disposition home or self-care (01) ==
LOC: EMS 23:34
DX: M25.511 Pain in right shoulder (principal); M54.5 Low back pain; F20.9 Schizophrenia, unspecified; F32.9 Major depressive disorder, single episode, unspecified; I10 Essential (primary) hypertension; E11.9 Type 2 diabetes mellitus without complications; J44.9 Chronic obstructive pulmonary disease, unspecified; F41.9 Anxiety disorder, unspecified; F17.210 Nicotine dependence, cigarettes, uncomplicated; Z88.0 Allergy status to penicillin; Z88.6 Allergy status to analgesic agent; Z79.899 Other long term (current) drug therapy; Z76.0 Encounter for issue of repeat prescription
CPT/HCPCS: 82962; 96372; 99283; J2270

== ENCOUNTER 2019-01-09 11:19 | Emergency (ER) | payer OTHER ==
[~2019-01-09] VITALS: Ht 162.6 cm; Wt 70.0 kg
[2019-01-09 12:34] LABS: BASOPHILS % (AUTO) 0.5 % (0.0-2.0); EOSINOPHILS % (AUTO) 1.5 % (1.0-6.0); HEMATOCRIT 39.8 % (41-53); HEMOGLOBIN 12.9 g/dL (13.5-17.5); LYMPHOCYTES % (AUTO) 22.8 % (22.0-44.0); MEAN CORPUSCULAR HEMOGLOBIN 27.2 pg (26.0-34.0); MEAN CORPUSCULAR HGB CONC 32.5 G/dL (31.0-37.0); MEAN CORPUSCULAR VOLUME 84 fL (80-100); MONOCYTES # (AUTO) 0.9 K/uL (0.1-1.0); MONOCYTES % (AUTO) 10.8 % (2.0-9.0); NEUTROPHILS # (AUTO) 5.6 K/uL (1.8-7.7); NEUTROPHILS % (AUTO) 64.4 % (40.0-70.0); PLATELET COUNT (AUTO) 254 K/uL (150-450); RED BLOOD CELL COUNT(AUTO) 4.76 MIL/uL (4.50-5.90); RED CELL DISTRIBUTION WIDTH 19.7 % (11.5-14.5)
[2019-01-09 12:35] LABS: AMPHET/METH SCREEN,URINE POSITIVE (NEGATIVE); BARBITURATE SCREEN, URINE NEGATIVE (NEGATIVE); BENZODIAZEPINES SCREEN,URINE NEGATIVE (NEGATIVE); CANNABINOID SCREEN,URINE POSITIVE (NEGATIVE); COCAINE SCREEN,URINE NEGATIVE (NEGATIVE); METHADONE SCREEN, URINE NEGATIVE (NEGATIVE); OPIATE SCREEN,URINE NEGATIVE (NEGATIVE)
[2019-01-09 12:36] LABS: PHENCYCLIDINE SCREEN,URINE NEGATIVE (NEGATIVE)
[2019-01-09 12:43] LABS: ANION GAP 11 mmol/L (8-16); CALCIUM, TOTAL 9.3 mg/dL (8.8-10.5); CARBON DIOXIDE 26 mmol/L (22-29); CHLORIDE 105 mmol/L (98-107); GLOMERULAR FILTR. RATE CALC > 60 mL/min (>60); GLUCOSE,RANDOM 101 mg/dL (70-110); POTASSIUM 3.6 mmol/L (3.5-5.1); SODIUM SERUM 142 mmol/L (136-145); UREA NITROGEN, BLOOD 14 mg/dL (7-18)
[2019-01-09 12:48] LABS: ALANINE AMINOTRANSFERASE 30 U/L (12-78); ALKALINE PHOSPHATASE 109 U/L (46-116); ASPARTATE AMINOTRANSFERASE 31 U/L (15-37); BILIRUBIN,TOTAL 0.7 mg/dL (0.1-1.0); TOTAL PROTEIN, SERUM 8.1 g/dL (6.4-8.2)
[2019-01-09 15:41] VITALS: BP 141/91
== END 2019-01-09 16:00 | disposition home or self-care (01) ==
LOC: EMS 11:23
DX: F15.10 Other stimulant abuse, uncomplicated (principal); Z13.89 Encounter for screening for other disorder; I10 Essential (primary) hypertension; I25.2 Old myocardial infarction; G47.00 Insomnia, unspecified; E11.69 Type 2 diabetes mellitus with other specified complication; M86.9 Osteomyelitis, unspecified; G89.29 Other chronic pain; J44.9 Chronic obstructive pulmonary disease, unspecified; F41.9 Anxiety disorder, unspecified; F20.9 Schizophrenia, unspecified; F17.210 Nicotine dependence, cigarettes, uncomplicated; Z59.0 Homelessness; Z79.899 Other long term (current) drug therapy; Z86.73 Personal history of transient ischemic attack (TIA), and cerebral infarction without residual deficits; Z88.0 Allergy status to penicillin; Z88.6 Allergy status to analgesic agent
CPT/HCPCS: 36415; 80053; 80307; 82962; 85025; 99285; G0480

== ENCOUNTER 2019-01-14 13:46 | Emergency (ER) | payer OTHER ==
[~2019-01-14] VITALS: Ht 167.6 cm; Wt 72.7 kg
[~2019-01-14 13:46] MED LIST changes: -CEFE2I IV; -VANC1IV IV
[2019-01-14 15:19] LABS: BASOPHILS % (AUTO) 0.7 % (0.0-2.0); EOSINOPHILS % (AUTO) 2.9 % (1.0-6.0); HEMATOCRIT 38.9 % (41-53); HEMOGLOBIN 12.6 g/dL (13.5-17.5); LYMPHOCYTES # (AUTO) 1.9 K/uL (1.0-4.8); MEAN CORPUSCULAR HEMOGLOBIN 26.8 pg (26.0-34.0); MEAN CORPUSCULAR HGB CONC 32.5 G/dL (31.0-37.0); MEAN CORPUSCULAR VOLUME 82 fL (80-100); MONOCYTES # (AUTO) 0.7 K/uL (0.1-1.0); MONOCYTES % (AUTO) 9.9 % (2.0-9.0); NEUTROPHILS % (AUTO) 58.5 % (40.0-70.0); PLATELET COUNT (AUTO) 292 K/uL (150-450); RED BLOOD CELL COUNT(AUTO) 4.72 MIL/uL (4.50-5.90); RED CELL DISTRIBUTION WIDTH 19.5 % (11.5-14.5)
[2019-01-14 15:31] LABS: ANION GAP 10 mmol/L (8-16); CALCIUM, TOTAL 8.7 mg/dL (8.8-10.5); CARBON DIOXIDE 26 mmol/L (22-29); CHLORIDE 103 mmol/L (98-107); CREATININE 0.85 mg/dL (0.60-1.30); GLOMERULAR FILTR. RATE CALC > 60 mL/min (>60); GLUCOSE,RANDOM 99 mg/dL (70-110); POTASSIUM 3.9 mmol/L (3.5-5.1); SODIUM SERUM 139 mmol/L (136-145); UREA NITROGEN, BLOOD 13 mg/dL (7-18)
[2019-01-14 15:38] LABS: ALANINE AMINOTRANSFERASE 40 U/L (12-78); ALBUMIN 3.4 g/dL (3.4-5.0); ALKALINE PHOSPHATASE 108 U/L (46-116); ASPARTATE AMINOTRANSFERASE 31 U/L (15-37); BILIRUBIN,TOTAL 0.3 mg/dL (0.1-1.0); TOTAL PROTEIN, SERUM 7.5 g/dL (6.4-8.2)
[2019-01-14 15:39] LABS: APPEARANCE,URINE CLEAR (CLEAR); BILIRUBIN,URINE NEGATIVE (NEGATIVE); GLUCOSE, URINE (UA) NEGATIVE (NEGATIVE); KETONES,URINE NEGATIVE (NEGATIVE); LEUKOCYTE ESTERASE ,URINE NEGATIVE (NEGATIVE); NITRATE,URINE NEGATIVE (NEGATIVE); OCCULT BLOOD,URINE NEGATIVE (NEGATIVE); PH,URINE 6.5 (5.0-8.0); PROTEIN,URINE NEGATIVE (NEGATIVE); UROBILINOGEN,URINE 0.2 mg/dL (<=1.0)
[2019-01-14 15:43] LABS: PROTHROMBIN TIME 10.4 SEC (9.4-11.6)
[2019-01-14] MEDS ORDERED: GABAPENTIN 100 MG CAPSULE PO ONE (15:45)
[2019-01-14] MEDS ORDERED: IBUPROFEN 800 MG TABLET PO ONE (15:45)
[2019-01-14 16:27] VITALS: BP 133/75
== END 2019-01-14 17:33 | disposition home or self-care (01) ==
LOC: EMS 13:50
DX: G89.29 Other chronic pain (principal); F17.210 Nicotine dependence, cigarettes, uncomplicated; F41.9 Anxiety disorder, unspecified; J44.9 Chronic obstructive pulmonary disease, unspecified; F32.9 Major depressive disorder, single episode, unspecified; E11.9 Type 2 diabetes mellitus without complications; I25.2 Old myocardial infarction; F20.9 Schizophrenia, unspecified; Z88.0 Allergy status to penicillin; Z88.6 Allergy status to analgesic agent; Z79.899 Other long term (current) drug therapy
CPT/HCPCS: 93005; 99406

== ENCOUNTER 2019-01-21 16:41 | Inpatient (IN) | payer MEDICAID, OTHER ==
[~2019-01-21] VITALS: Ht 167.6 cm; Wt 123.0 kg
[2019-01-21 17:04] LABS: GLUCOSE,POINT OF CARE 102 MG/DL (70-110)
[2019-01-21 18:03] LABS: BASOPHILS % (AUTO) 0.6 % (0.0-2.0); EOSINOPHILS % (AUTO) 2.9 % (1.0-6.0); HEMATOCRIT 39.4 % (41-53); HEMOGLOBIN 12.9 g/dL (13.5-17.5); LYMPHOCYTES # (AUTO) 1.8 K/uL (1.0-4.8); LYMPHOCYTES % (AUTO) 24.3 % (22.0-44.0); MEAN CORPUSCULAR HEMOGLOBIN 27.3 pg (26.0-34.0); MEAN CORPUSCULAR HGB CONC 32.7 G/dL (31.0-37.0); MEAN CORPUSCULAR VOLUME 84 fL (80-100); MONOCYTES # (AUTO) 0.7 K/uL (0.1-1.0); MONOCYTES % (AUTO) 9.8 % (2.0-9.0); NEUTROPHILS # (AUTO) 4.6 K/uL (1.8-7.7); NEUTROPHILS % (AUTO) 62.4 % (40.0-70.0); PLATELET COUNT (AUTO) 329 K/uL (150-450); RED BLOOD CELL COUNT(AUTO) 4.72 MIL/uL (4.50-5.90)
[2019-01-21 18:17] LABS: ANION GAP 9 mmol/L (8-16); CALCIUM, TOTAL 8.9 mg/dL (8.8-10.5); CARBON DIOXIDE 25 mmol/L (22-29); CHLORIDE 105 mmol/L (98-107); CREATININE 0.93 mg/dL (0.60-1.30); GLOMERULAR FILTR. RATE CALC > 60 mL/min (>60); GLUCOSE,RANDOM 107 mg/dL (70-110); POTASSIUM 3.4 mmol/L (3.5-5.1); SODIUM SERUM 139 mmol/L (136-145); UREA NITROGEN, BLOOD 14 mg/dL (7-18)
[2019-01-21 18:19] LABS: APPEARANCE,URINE CLEAR (CLEAR); BILIRUBIN,URINE NEGATIVE (NEGATIVE); GLUCOSE, URINE (UA) NEGATIVE (NEGATIVE); KETONES,URINE NEGATIVE (NEGATIVE); LEUKOCYTE ESTERASE ,URINE NEGATIVE (NEGATIVE); NITRATE,URINE NEGATIVE (NEGATIVE); OCCULT BLOOD,URINE NEGATIVE (NEGATIVE); PROTEIN,URINE NEGATIVE (NEGATIVE); UROBILINOGEN,URINE 0.2 mg/dL (<=1.0)
[2019-01-21 18:19] LABS: ALANINE AMINOTRANSFERASE 41 U/L (12-78); ALBUMIN 3.6 g/dL (3.4-5.0); ALKALINE PHOSPHATASE 108 U/L (46-116); ASPARTATE AMINOTRANSFERASE 28 U/L (15-37); BILIRUBIN,TOTAL 0.3 mg/dL (0.1-1.0); TOTAL PROTEIN, SERUM 7.4 g/dL (6.4-8.2)
[2019-01-21 18:21] LABS: AMPHET/METH SCREEN,URINE NEGATIVE (NEGATIVE); BARBITURATE SCREEN, URINE NEGATIVE (NEGATIVE); BENZODIAZEPINES SCREEN,URINE NEGATIVE (NEGATIVE); CANNABINOID SCREEN,URINE NEGATIVE (NEGATIVE); COCAINE SCREEN,URINE NEGATIVE (NEGATIVE); METHADONE SCREEN, URINE NEGATIVE (NEGATIVE); OPIATE SCREEN,URINE NEGATIVE (NEGATIVE)
[2019-01-21 18:24] LABS: PHENCYCLIDINE SCREEN,URINE NEGATIVE (NEGATIVE)
[2019-01-21] MEDS ORDERED: ACETAMINOPHEN 325 MG TABLET PO ONE (20:15)
[2019-01-21] MEDS ORDERED: ZOLPIDEM TARTRATE 10 MG TABLET PO PRN (21:30)
[2019-01-22 01:20] VITALS: BP 149/91
[2019-01-22] MEDS ORDERED: ONDANSETRON HCL 4 MG TABLET PO PRN (08:15)
[2019-01-22] MEDS ORDERED: LOPERAMIDE HCL 2 MG CAPSULE PO PRN (08:15)
[2019-01-22] MEDS ORDERED: CloNIDine HCL 0.1 MG TABLET PO PRN (08:15)
[2019-01-22] MEDS ORDERED: ALBUTEROL SULFATE HFA 90 MCG/PUFF 8 GM INHALER IH PRN (08:15)
[2019-01-22] MEDS ORDERED: MAGNESIUM HYDROXIDE SUSPENSION 30 ML UDCUP PO PRN (08:15)
[2019-01-22] MEDS ORDERED: PETROLATUM,WHITE 28 GM JELLY TP PRN (08:15)
[2019-01-22] MEDS ORDERED: MAG HYDROX/AL HYDROX/SIMETH ES 30 ML SUSPENSION UDCUP PO PRN (08:15)
[2019-01-22] MEDS ORDERED: BENZOCAINE/MENTHOL LOZENGE MM PRN (08:15)
[2019-01-22] MEDS ORDERED: BACITRACIN 28.4 GM OINTMENT TP PRN (08:15)
[2019-01-22] MEDS: FOLIC ACID 1 MG TABLET PO SCH (09:21)
[2019-01-22] MEDS: OMEPRAZOLE 20 MG CAPSULE PO SCH (09:21)
[2019-01-22] MEDS: DOCUSATE SODIUM 100 MG CAPSULE PO SCH (09:21)
[2019-01-22] MEDS: GABAPENTIN 300 MG CAPSULE PO SCH ×5 (09:21→17:00)
[2019-01-22] MEDS: ASCORBIC ACID 500 MG TABLET PO SCH (09:21)
[2019-01-22] MEDS: ACETAMINOPHEN 325 MG TABLET PO PRN ×2 (09:23→16:32)
[2019-01-22 09:30] VITALS: BP 142/86
[2019-01-22] MEDS: LORazepam 2 MG TABLET PO PRN ×2 (09:30→16:31)
[2019-01-22] MEDS: HALOPERIDOL 5 MG TABLET PO PRN ×2 (09:30→16:31)
[2019-01-22 11:06] VITALS: BP 143/83
[2019-01-22 16:27] VITALS: BP 134/61
[2019-01-23] MEDS: ACETAMINOPHEN 325 MG TABLET PO PRN (05:58)
[2019-01-23] MEDS: FERROUS SULFATE 325 MG EC TABLET PO SCH (07:06)
[2019-01-23 08:00] VITALS: BP 112/74
[2019-01-23] MEDS: GABAPENTIN 300 MG CAPSULE PO SCH ×3 (08:35→16:24)
[2019-01-23] MEDS: OMEPRAZOLE 20 MG CAPSULE PO SCH (08:35)
[2019-01-23] MEDS: ASCORBIC ACID 500 MG TABLET PO SCH (08:35)
[2019-01-23] MEDS: ARIPiprazole 10 MG TABLET PO SCH (08:35)
[2019-01-23] MEDS: DOCUSATE SODIUM 100 MG CAPSULE PO SCH (08:35)
[2019-01-23] MEDS: SERTRALINE HCL 100 MG TABLET PO SCH (08:35)
[2019-01-23] MEDS: FOLIC ACID 1 MG TABLET PO SCH (08:35)
[2019-01-23] MEDS: HALOPERIDOL 5 MG TABLET PO PRN ×2 (08:38→17:03)
[2019-01-23] MEDS: LORazepam 2 MG TABLET PO PRN ×2 (08:39→17:03)
[2019-01-23 16:48] VITALS: BP 148/95
[2019-01-23] MEDS: TraZODone HCL 100 MG TABLET PO PRN (20:01)
[2019-01-24 00:50] VITALS: BP 121/75
[2019-01-24] MEDS: ACETAMINOPHEN 325 MG TABLET PO PRN ×2 (00:55→07:00)
[2019-01-24] MEDS: FERROUS SULFATE 325 MG EC TABLET PO SCH (06:40)
[2019-01-24 06:55] VITALS: BP 142/71
[2019-01-24 08:00] VITALS: BP_SYST 132; BP_SYST 135; BP_DIAS 67; BP_DIAS 68
[2019-01-24] MEDS: FOLIC ACID 1 MG TABLET PO SCH (08:34)
[2019-01-24] MEDS: ARIPiprazole 10 MG TABLET PO SCH (08:34)
[2019-01-24] MEDS: DOCUSATE SODIUM 100 MG CAPSULE PO SCH (08:34)
[2019-01-24] MEDS: ASCORBIC ACID 500 MG TABLET PO SCH (08:34)
[2019-01-24] MEDS: OMEPRAZOLE 20 MG CAPSULE PO SCH (08:35)
[2019-01-24] MEDS: GABAPENTIN 300 MG CAPSULE PO SCH ×3 (08:35→16:05)
[2019-01-24] MEDS: SERTRALINE HCL 100 MG TABLET PO SCH (08:35)
[2019-01-24] MEDS: HALOPERIDOL 5 MG TABLET PO PRN (08:36)
[2019-01-24] MEDS: LORazepam 2 MG TABLET PO PRN ×2 (08:36→16:05)
[2019-01-24 16:28] VITALS: BP 138/82
[2019-01-25 06:11] VITALS: BP 130/71
[2019-01-25] MEDS: ACETAMINOPHEN 325 MG TABLET PO PRN (06:11)
[2019-01-25] MEDS: FERROUS SULFATE 325 MG EC TABLET PO SCH (06:35)
[2019-01-25 08:15] VITALS: BP 155/92
[2019-01-25] MEDS: DOCUSATE SODIUM 100 MG CAPSULE PO SCH (08:31)
[2019-01-25] MEDS: FOLIC ACID 1 MG TABLET PO SCH (08:31)
[2019-01-25] MEDS: ASCORBIC ACID 500 MG TABLET PO SCH (08:31)
[2019-01-25] MEDS: GABAPENTIN 300 MG CAPSULE PO SCH ×3 (08:31→17:58)
[2019-01-25] MEDS: SERTRALINE HCL 100 MG TABLET PO SCH (08:31)
[2019-01-25] MEDS: OMEPRAZOLE 20 MG CAPSULE PO SCH (08:31)
[2019-01-25] MEDS: ARIPiprazole 10 MG TABLET PO SCH (08:31)
[2019-01-25] MEDS: HALOPERIDOL 5 MG TABLET PO PRN (08:34)
[2019-01-25] MEDS: LORazepam 2 MG TABLET PO PRN (08:34)
[2019-01-25 17:17] VITALS: BP 124/96
[2019-01-26 00:15] VITALS: BP 132/89
[2019-01-26] MEDS: TraZODone HCL 100 MG TABLET PO PRN (00:19)
[2019-01-26 04:21] VITALS: BP 138/88
[2019-01-26] MEDS: ACETAMINOPHEN 325 MG TABLET PO PRN (04:27)
[2019-01-26] MEDS: FERROUS SULFATE 325 MG EC TABLET PO SCH (06:31)
[2019-01-26 08:00] VITALS: BP 157/96
[2019-01-26] MEDS: OMEPRAZOLE 20 MG CAPSULE PO SCH (08:28)
[2019-01-26] MEDS: ASCORBIC ACID 500 MG TABLET PO SCH (08:28)
[2019-01-26] MEDS: ARIPiprazole 10 MG TABLET PO SCH (08:28)
[2019-01-26] MEDS: FOLIC ACID 1 MG TABLET PO SCH (08:28)
[2019-01-26] MEDS: SERTRALINE HCL 100 MG TABLET PO SCH (08:29)
[2019-01-26] MEDS: DOCUSATE SODIUM 100 MG CAPSULE PO SCH (08:29)
[2019-01-26] MEDS: GABAPENTIN 300 MG CAPSULE PO SCH ×3 (08:30→16:43)
[2019-01-26] MEDS: LORazepam 2 MG TABLET PO PRN ×2 (08:58→16:44)
[2019-01-26] MEDS: HALOPERIDOL 5 MG TABLET PO PRN (16:44)
[2019-01-26 17:22] VITALS: BP 148/78
[2019-01-27] MEDS: FERROUS SULFATE 325 MG EC TABLET PO SCH (06:05)
[2019-01-27] MEDS: SERTRALINE HCL 100 MG TABLET PO SCH (08:23)
[2019-01-27] MEDS: ASCORBIC ACID 500 MG TABLET PO SCH (08:24)
[2019-01-27] MEDS: ARIPiprazole 10 MG TABLET PO SCH (08:24)
[2019-01-27] MEDS: DOCUSATE SODIUM 100 MG CAPSULE PO SCH (08:24)
[2019-01-27] MEDS: OMEPRAZOLE 20 MG CAPSULE PO SCH (08:25)
[2019-01-27] MEDS: FOLIC ACID 1 MG TABLET PO SCH (08:25)
[2019-01-27] MEDS: GABAPENTIN 300 MG CAPSULE PO SCH ×3 (08:25→16:21)
[2019-01-27] MEDS: HALOPERIDOL 5 MG TABLET PO PRN ×2 (10:27→16:37)
[2019-01-27] MEDS: LORazepam 2 MG TABLET PO PRN ×2 (10:27→16:37)
[2019-01-27 10:42] VITALS: BP 154/76
[2019-01-27 19:54] VITALS: BP 145/81
[2019-01-28 02:54] VITALS: BP 141/80
[2019-01-28] MEDS: ACETAMINOPHEN 325 MG TABLET PO PRN (02:57)
[2019-01-28] MEDS: FERROUS SULFATE 325 MG EC TABLET PO SCH (06:10)
[2019-01-28] MEDS: DOCUSATE SODIUM 100 MG CAPSULE PO SCH (08:23)
[2019-01-28] MEDS: SERTRALINE HCL 100 MG TABLET PO SCH (08:23)
[2019-01-28] MEDS: FOLIC ACID 1 MG TABLET PO SCH (08:23)
[2019-01-28] MEDS: OMEPRAZOLE 20 MG CAPSULE PO SCH (08:23)
[2019-01-28] MEDS: GABAPENTIN 300 MG CAPSULE PO SCH ×3 (08:23→16:13)
[2019-01-28] MEDS: ASCORBIC ACID 500 MG TABLET PO SCH (08:23)
[2019-01-28] MEDS: ARIPiprazole 10 MG TABLET PO SCH (08:24)
[2019-01-28] MEDS: HALOPERIDOL 5 MG TABLET PO PRN (08:28)
[2019-01-28] MEDS: LORazepam 2 MG TABLET PO PRN ×2 (08:28→21:07)
[2019-01-28 09:39] VITALS: BP 150/94
[2019-01-28] MEDS: TraZODone HCL 100 MG TABLET PO PRN (20:18)
[2019-01-29 06:05] VITALS: BP 107/76
[2019-01-29] MEDS: ACETAMINOPHEN 325 MG TABLET PO PRN ×2 (06:10→11:03)
[2019-01-29] MEDS: FERROUS SULFATE 325 MG EC TABLET PO SCH (07:00)
[2019-01-29 08:00] VITALS: BP 150/74
[2019-01-29] MEDS ORDERED: POTASSIUM CHLORIDE 20 MEQ ER TABLET PO ONE (08:15)
[2019-01-29] MEDS: ARIPiprazole 10 MG TABLET PO SCH (09:01)
[2019-01-29] MEDS: OMEPRAZOLE 20 MG CAPSULE PO SCH (09:01)
[2019-01-29] MEDS: ASCORBIC ACID 500 MG TABLET PO SCH (09:01)
[2019-01-29] MEDS: GABAPENTIN 300 MG CAPSULE PO SCH ×3 (09:01→17:21)
[2019-01-29] MEDS: FOLIC ACID 1 MG TABLET PO SCH (09:01)
[2019-01-29] MEDS: DOCUSATE SODIUM 100 MG CAPSULE PO SCH (09:02)
[2019-01-29] MEDS: SERTRALINE HCL 100 MG TABLET PO SCH (09:03)
[2019-01-29] MEDS: LORazepam 2 MG TABLET PO PRN ×2 (09:09→14:32)
[2019-01-29 11:24] LABS: GLUCOMETER DEV NAME(LOC) 3E.I; GLUCOSE,POINT OF CARE 158 MG/DL (70-110)
[2019-01-29 16:43] VITALS: BP 127/91
[2019-01-30 01:45] VITALS: BP 124/79
[2019-01-30] MEDS: LORazepam 2 MG TABLET PO PRN ×2 (05:08→11:05)
[2019-01-30] MEDS: ACETAMINOPHEN 325 MG TABLET PO PRN (05:08)
[2019-01-30] MEDS: FERROUS SULFATE 325 MG EC TABLET PO SCH (06:01)
[2019-01-30] MEDS: ARIPiprazole 10 MG TABLET PO SCH (08:15)
[2019-01-30] MEDS: OMEPRAZOLE 20 MG CAPSULE PO SCH (08:15)
[2019-01-30] MEDS: GABAPENTIN 300 MG CAPSULE PO SCH ×3 (08:16→15:50)
[2019-01-30] MEDS: SERTRALINE HCL 100 MG TABLET PO SCH (08:16)
[2019-01-30] MEDS: FOLIC ACID 1 MG TABLET PO SCH (08:16)
[2019-01-30] MEDS: DOCUSATE SODIUM 100 MG CAPSULE PO SCH (08:16)
[2019-01-30] MEDS: ASCORBIC ACID 500 MG TABLET PO SCH (08:17)
[2019-01-30 09:59] VITALS: BP 160/73
[2019-01-30] MEDS: HALOPERIDOL 5 MG TABLET PO PRN (11:05)
[2019-01-30] MEDS ORDERED: TRAZ150 PO (12:23)
[2019-01-30] MEDS ORDERED: TraZODone HCL 150 MG TABLET PO SCH (21:00)
== END 2019-01-30 17:45 | disposition home or self-care (01) | DRG 750 ==
LOC: EMS 16:41 → 3EI 01-22 00:48
PROVIDERS: ADMIT Psychiatry & Neurology Psychiatry; ATTEND Psychiatry & Neurology Psychiatry
DX: F25.1 Schizoaffective disorder, depressive type (principal); E11.9 Type 2 diabetes mellitus without complications; R45.851 Suicidal ideations; F17.200 Nicotine dependence, unspecified, uncomplicated; F41.9 Anxiety disorder, unspecified; I10 Essential (primary) hypertension; G47.00 Insomnia, unspecified; G89.29 Other chronic pain; K21.9 Gastro-esophageal reflux disease without esophagitis; F19.10 Other psychoactive substance abuse, uncomplicated; G40.909 Epilepsy, unspecified, not intractable, without status epilepticus; I25.2 Old myocardial infarction; J44.9 Chronic obstructive pulmonary disease, unspecified; Z91.5 Personal history of self-harm; Z91.14 Patient's other noncompliance with medication regimen; Z86.73 Personal history of transient ischemic attack (TIA), and cerebral infarction without residual deficits; Z71.6 Tobacco abuse counseling; Z71.41 Alcohol abuse counseling and surveillance of alcoholic; Z71.51 Drug abuse counseling and surveillance of drug abuser; Z79.899 Other long term (current) drug therapy; Z59.0 Homelessness; Z88.6 Allergy status to analgesic agent; Z88.0 Allergy status to penicillin; Z72.89 Other problems related to lifestyle
CPT/HCPCS: 83036; 84132; 87081; G0480

== ENCOUNTER 2019-02-26 17:31 | Emergency (ER) | payer MEDICAID, OTHER ==
[~2019-02-26] VITALS: Ht 167.6 cm; Wt 72.7 kg
[~2019-02-26 17:31] MED LIST changes: -IBUP-2071 PO; +TRAZ150 PO
[2019-02-26 17:54] LABS: GLUCOSE,POINT OF CARE 122 MG/DL (70-110)
[2019-02-26 22:00] LABS: BASOPHILS % (AUTO) 0.5 % (0.0-2.0); EOSINOPHILS % (AUTO) 5.6 % (1.0-6.0); HEMOGLOBIN 12.2 g/dL (13.5-17.5); LYMPHOCYTES % (AUTO) 22.9 % (22.0-44.0); MEAN CORPUSCULAR HEMOGLOBIN 27.3 pg (26.0-34.0); MEAN CORPUSCULAR HGB CONC 32.2 G/dL (31.0-37.0); MEAN CORPUSCULAR VOLUME 85 fL (80-100); MONOCYTES # (AUTO) 1.3 K/uL (0.1-1.0); NEUTROPHILS # (AUTO) 4.9 K/uL (1.8-7.7); PLATELET COUNT (AUTO) 239 K/uL (150-450); RED BLOOD CELL COUNT(AUTO) 4.48 MIL/uL (4.50-5.90); RED CELL DISTRIBUTION WIDTH 18.2 % (11.5-14.5)
[2019-02-26 22:03] LABS: ANION GAP 6 mmol/L (8-16); CALCIUM, TOTAL 8.4 mg/dL (8.8-10.5); CARBON DIOXIDE 28 mmol/L (22-29); CHLORIDE 104 mmol/L (98-107); CREATININE 1.04 mg/dL (0.60-1.30); GLOMERULAR FILTR. RATE CALC > 60 mL/min (>60); GLUCOSE,RANDOM 85 mg/dL (70-110); POTASSIUM 3.7 mmol/L (3.5-5.1); SODIUM SERUM 138 mmol/L (136-145); UREA NITROGEN, BLOOD 13 mg/dL (7-18)
[2019-02-26 22:09] LABS: ALANINE AMINOTRANSFERASE 119 U/L (12-78); ALKALINE PHOSPHATASE 154 U/L (46-116); ASPARTATE AMINOTRANSFERASE 90 U/L (15-37); BILIRUBIN,TOTAL 0.3 mg/dL (0.1-1.0); TOTAL PROTEIN, SERUM 7.1 g/dL (6.4-8.2)
[2019-02-26 22:58] LABS: AMPHET/METH SCREEN,URINE NEGATIVE (NEGATIVE); BARBITURATE SCREEN, URINE NEGATIVE (NEGATIVE); BENZODIAZEPINES SCREEN,URINE POSITIVE (NEGATIVE); CANNABINOID SCREEN,URINE NEGATIVE (NEGATIVE); COCAINE SCREEN,URINE NEGATIVE (NEGATIVE); METHADONE SCREEN, URINE NEGATIVE (NEGATIVE); OPIATE SCREEN,URINE POSITIVE (NEGATIVE); PHENCYCLIDINE SCREEN,URINE NEGATIVE (NEGATIVE)
[2019-02-26 23:00] VITALS: BP 138/82
== END 2019-02-27 00:30 | disposition left against medical advice (07) ==
LOC: EMS 17:32
DX: F20.9 Schizophrenia, unspecified (principal); G89.29 Other chronic pain; I10 Essential (primary) hypertension; E11.9 Type 2 diabetes mellitus without complications; J44.9 Chronic obstructive pulmonary disease, unspecified; F41.9 Anxiety disorder, unspecified; I25.2 Old myocardial infarction; F17.210 Nicotine dependence, cigarettes, uncomplicated; Z88.0 Allergy status to penicillin; Z88.6 Allergy status to analgesic agent; Z79.899 Other long term (current) drug therapy
CPT/HCPCS: 36415; 80053; 80307; 82962; 85025; 99284; 99406; G0480

== ENCOUNTER 2019-07-10 16:55 | Emergency (ER) | payer OTHER ==
[~2019-07-10] VITALS: Ht 162.6 cm; Wt 65.9 kg
[2019-07-10 20:02] VITALS: BP 118/74
== END 2019-07-10 20:01 | disposition home or self-care (01) ==
LOC: EMS 16:57
DX: B85.3 Phthiriasis (principal); L73.9 Follicular disorder, unspecified; E11.69 Type 2 diabetes mellitus with other specified complication; M86.9 Osteomyelitis, unspecified; G89.29 Other chronic pain; G47.00 Insomnia, unspecified; I25.2 Old myocardial infarction; I10 Essential (primary) hypertension; J44.9 Chronic obstructive pulmonary disease, unspecified; F17.210 Nicotine dependence, cigarettes, uncomplicated; F20.9 Schizophrenia, unspecified; F41.9 Anxiety disorder, unspecified; Z98.890 Other specified postprocedural states; Z79.899 Other long term (current) drug therapy; Z88.0 Allergy status to penicillin; Z86.73 Personal history of transient ischemic attack (TIA), and cerebral infarction without residual deficits; Z88.6 Allergy status to analgesic agent; Z59.0 Homelessness

== ENCOUNTER 2019-11-06 15:28 | Emergency (ER) | payer OTHER ==
[~2019-11-06] VITALS: Ht 167.6 cm; Wt 81.8 kg
[~2019-11-06 15:28] MED LIST changes: +ASCO500T22 PO; -ASCO500T9 PO; +FOLI-130 PO; -FOLI1 PO; +GABA-1181 PO; -GABA-531 PO
[2019-11-06 16:47] LABS: BASOPHILS % (AUTO) 0.7 % (0.0-2.0); EOSINOPHILS % (AUTO) 5.9 % (1.0-6.0); HEMATOCRIT 35.9 % (41-53); HEMOGLOBIN 11.9 g/dL (13.5-17.5); LYMPHOCYTES # (AUTO) 1.7 K/uL (1.0-4.8); LYMPHOCYTES % (AUTO) 21.1 % (22.0-44.0); MEAN CORPUSCULAR HGB CONC 33.2 G/dL (31.0-37.0); MEAN CORPUSCULAR VOLUME 87 fL (80-100); MONOCYTES % (AUTO) 12.6 % (2.0-9.0); NEUTROPHILS # (AUTO) 4.8 K/uL (1.8-7.7); NEUTROPHILS % (AUTO) 59.7 % (40.0-70.0); PLATELET COUNT (AUTO) 296 K/uL (150-450); RED BLOOD CELL COUNT(AUTO) 4.11 MIL/uL (4.50-5.90)
[2019-11-06 17:01] LABS: ANION GAP 9 mmol/L (8-16); CALCIUM, TOTAL 8.2 mg/dL (8.8-10.5); CARBON DIOXIDE 25 mmol/L (22-29); CHLORIDE 110 mmol/L (98-107); CREATININE 1.36 mg/dL (0.60-1.30); GLOMERULAR FILTR. RATE CALC 53 mL/min (>60); GLUCOSE,RANDOM 103 mg/dL (70-110); POTASSIUM 3.8 mmol/L (3.5-5.1); SODIUM SERUM 144 mmol/L (136-145); UREA NITROGEN, BLOOD 25 mg/dL (7-18)
[2019-11-06 17:06] LABS: ALANINE AMINOTRANSFERASE 110 U/L (12-78); ALBUMIN 3.1 g/dL (3.4-5.0); ALKALINE PHOSPHATASE 141 U/L (46-116); ASPARTATE AMINOTRANSFERASE 61 U/L (15-37); BILIRUBIN,TOTAL 0.2 mg/dL (0.1-1.0); TOTAL PROTEIN, SERUM 7.4 g/dL (6.4-8.2)
[2019-11-06 19:16] VITALS: BP 120/65
== END 2019-11-06 21:00 | disposition home or self-care (01) ==
LOC: EMS 15:31
DX: J22 Unspecified acute lower respiratory infection (principal); I10 Essential (primary) hypertension; F20.9 Schizophrenia, unspecified; F41.9 Anxiety disorder, unspecified; J44.9 Chronic obstructive pulmonary disease, unspecified; E11.9 Type 2 diabetes mellitus without complications; I25.2 Old myocardial infarction; F32.9 Major depressive disorder, single episode, unspecified; F12.90 Cannabis use, unspecified, uncomplicated; F15.90 Other stimulant use, unspecified, uncomplicated; F17.210 Nicotine dependence, cigarettes, uncomplicated; Z88.0 Allergy status to penicillin; Z88.6 Allergy status to analgesic agent; Z79.899 Other long term (current) drug therapy; Z20.828 Contact with and (suspected) exposure to other viral communicable diseases
CPT/HCPCS: 36415; 71045; 80053; 85025; 87635; 99284; G0480

== ENCOUNTER 2019-12-11 12:53 | Emergency (ER) | payer OTHER ==
[~2019-12-11] VITALS: Ht 172.7 cm; Wt 75.0 kg
[~2019-12-11 12:53] MED LIST changes: -FOLI-130 PO; +FOLI1 PO; -GABA-1181 PO; +GABA-531 PO
[2019-12-11 14:00] LABS: GLUCOMETER DEV NAME(LOC) AHU.; GLUCOSE,POINT OF CARE 89 MG/DL (70-110)
[2019-12-11 14:31] LABS: BASOPHILS % (AUTO) 0.5 % (0.0-2.0); EOSINOPHILS % (AUTO) 5.4 % (1.0-6.0); HEMATOCRIT 34.9 % (41-53); HEMOGLOBIN 11.2 g/dL (13.5-17.5); LYMPHOCYTES # (AUTO) 1.9 K/uL (1.0-4.8); LYMPHOCYTES % (AUTO) 17.1 % (22.0-44.0); MEAN CORPUSCULAR HEMOGLOBIN 27.9 pg (26.0-34.0); MEAN CORPUSCULAR HGB CONC 32.1 G/dL (31.0-37.0); MEAN CORPUSCULAR VOLUME 87 fL (80-100); MONOCYTES # (AUTO) 1.1 K/uL (0.1-1.0); MONOCYTES % (AUTO) 9.9 % (2.0-9.0); NEUTROPHILS # (AUTO) 7.4 K/uL (1.8-7.7); NEUTROPHILS % (AUTO) 67.1 % (40.0-70.0); PLATELET COUNT (AUTO) 286 K/uL (150-450); RED BLOOD CELL COUNT(AUTO) 4.01 MIL/uL (4.50-5.90); RED CELL DISTRIBUTION WIDTH 15.5 % (11.5-14.5)
[2019-12-11 14:57] LABS: ANION GAP 8 mmol/L (8-16); CALCIUM, TOTAL 8.7 mg/dL (8.8-10.5); CARBON DIOXIDE 28 mmol/L (22-29); CHLORIDE 103 mmol/L (98-107); CREATININE 0.89 mg/dL (0.60-1.30); GLOMERULAR FILTR. RATE CALC > 60 mL/min (>60); GLUCOSE,RANDOM 93 mg/dL (70-110); POTASSIUM 3.9 mmol/L (3.5-5.1); SODIUM SERUM 139 mmol/L (136-145); UREA NITROGEN, BLOOD 17 mg/dL (7-18)
[2019-12-11 14:59] LABS: ALANINE AMINOTRANSFERASE 25 U/L (12-78); ALBUMIN 3.4 g/dL (3.4-5.0); ALKALINE PHOSPHATASE 85 U/L (46-116); ASPARTATE AMINOTRANSFERASE 26 U/L (15-37); BILIRUBIN,TOTAL 0.6 mg/dL (0.1-1.0); LIPASE 48 U/L (73-393); TOTAL PROTEIN, SERUM 7.5 g/dL (6.4-8.2)
[2019-12-11 15:18] VITALS: BP 118/73
== END 2019-12-11 15:54 | disposition home or self-care (01) ==
LOC: EMS 12:56
DX: Z13.89 Encounter for screening for other disorder (principal); I10 Essential (primary) hypertension; I25.2 Old myocardial infarction; F20.9 Schizophrenia, unspecified; F41.9 Anxiety disorder, unspecified; F12.90 Cannabis use, unspecified, uncomplicated; F15.90 Other stimulant use, unspecified, uncomplicated; E11.9 Type 2 diabetes mellitus without complications; Z88.0 Allergy status to penicillin; Z88.6 Allergy status to analgesic agent
CPT/HCPCS: 70450; 71045; 80053; 82962; 83690; 84484; 85025; 93005; 99285; G0480; 82948

== ENCOUNTER 2020-04-07 11:43 | Inpatient (IN) | payer OTHER ==
[~2020-04-07] VITALS: Ht 167.6 cm; Wt 76.1 kg
[~2020-04-07 11:43] MED LIST changes: +FOLI-130 PO; -FOLI1 PO; +GABA-1181 PO; -GABA-531 PO
[2020-04-07] MEDS ORDERED: ENOX40DI9 SQ (12:10)
[2020-04-07] MEDS ORDERED: AMLO-258 PO (12:10)
[2020-04-07] MEDS ORDERED: GABA-1181 PO (12:10)
[2020-04-07] MEDS ORDERED: PRAV10TA39 PO (12:10)
[2020-04-07] MEDS ORDERED: LORazepam 2 MG TABLET PO ONE (13:15)
[2020-04-07] MEDS ORDERED: GABAPENTIN 100 MG CAPSULE PO ONE (13:15)
[2020-04-07] MEDS ORDERED: ACETAMINOPHEN 325 MG TABLET PO PRN (14:30)
[2020-04-07 15:24] LABS: AMPHET/METH SCREEN,URINE NEGATIVE (NEGATIVE); BARBITURATE SCREEN, URINE NEGATIVE (NEGATIVE); BENZODIAZEPINES SCREEN,URINE NEGATIVE (NEGATIVE); CANNABINOID SCREEN,URINE NEGATIVE (NEGATIVE); COCAINE SCREEN,URINE NEGATIVE (NEGATIVE); METHADONE SCREEN, URINE NEGATIVE (NEGATIVE); OPIATE SCREEN,URINE POSITIVE (NEGATIVE)
[2020-04-07 15:31] LABS: PHENCYCLIDINE SCREEN,URINE NEGATIVE (NEGATIVE)
[2020-04-07 16:27] LABS: BASOPHILS % (AUTO) 0.6 % (0.0-2.0); EOSINOPHILS % (AUTO) 10.7 % (1.0-6.0); HEMATOCRIT 32.4 % (41-53); HEMOGLOBIN 10.4 g/dL (13.5-17.5); LYMPHOCYTES % (AUTO) 27.6 % (22.0-44.0); MEAN CORPUSCULAR HEMOGLOBIN 26.3 pg (26.0-34.0); MEAN CORPUSCULAR VOLUME 82 fL (80-100); MONOCYTES # (AUTO) 0.7 K/uL (0.1-1.0); MONOCYTES % (AUTO) 10.3 % (2.0-9.0); NEUTROPHILS # (AUTO) 3.6 K/uL (1.8-7.7); NEUTROPHILS % (AUTO) 50.8 % (40.0-70.0); PLATELET COUNT (AUTO) 286 K/uL (150-450); RED BLOOD CELL COUNT(AUTO) 3.94 MIL/uL (4.50-5.90); RED CELL DISTRIBUTION WIDTH 16.7 % (11.5-14.5)
[2020-04-07 16:37] LABS: ANION GAP 6 mmol/L (8-16); CALCIUM, TOTAL 8.1 mg/dL (8.8-10.5); CARBON DIOXIDE 27 mmol/L (22-29); CHLORIDE 102 mmol/L (98-107); GLOMERULAR FILTR. RATE CALC > 60 mL/min (>60); GLUCOSE,RANDOM 106 mg/dL (70-110); POTASSIUM 3.5 mmol/L (3.5-5.1); SODIUM SERUM 135 mmol/L (136-145); UREA NITROGEN, BLOOD 15 mg/dL (7-18)
[2020-04-07 16:43] LABS: ALANINE AMINOTRANSFERASE 47 U/L (12-78); ALBUMIN 3.2 g/dL (3.4-5.0); ALKALINE PHOSPHATASE 85 U/L (46-116); ASPARTATE AMINOTRANSFERASE 32 U/L (15-37); BILIRUBIN,TOTAL 0.2 mg/dL (0.1-1.0); TOTAL PROTEIN, SERUM 7.3 g/dL (6.4-8.2)
[2020-04-07 18:06] LABS: GLUCOSE,POINT OF CARE 118 MG/DL (70-110)
[2020-04-07] MEDS ORDERED: VANC1.5V3 IVPB (19:39)
[2020-04-07 19:45] VITALS: BP 124/71
[2020-04-07] MEDS ORDERED: MELATONIN 5 MG TABLET PO PRN (19:45)
[2020-04-07] MEDS ORDERED: ASPIRIN 81 MG CHEWABLE TABLET PO ONE (19:45)
[2020-04-07] MEDS ORDERED: OMEP10 PO (19:47)
[2020-04-07] MEDS ORDERED: PRAV20TA4 PO (19:51)
[2020-04-07] MEDS ORDERED: BusPIRone HCL 5 MG TABLET PO SCH (21:00)
[2020-04-07] MEDS ORDERED: SODIUM CHLORIDE 0.9% 500 ML IV ONE (21:05)
[2020-04-07] MEDS: BECLOMETHASONE DIPR HFA 40 MCG/PUFF 10.6 GM INHALER IH SCH (21:12)
[2020-04-07] MEDS: BusPIRone HCL 10 MG TABLET PO SCH (21:12)
[2020-04-07] MEDS: TraMADol HCL 50 MG TABLET PO PRN (21:12)
[2020-04-07] MEDS: TraZODone HCL 150 MG TABLET PO SCH (21:12)
[2020-04-07] MEDS: GABAPENTIN 300 MG CAPSULE PO SCH (21:12)
[2020-04-07] MEDS: VANCOMYCIN HCL 1 GM/D5% WATER 200 ML IV SCH (21:13)
[2020-04-08] VITALS (7 sets, daily range): BP systolic 100–134; BP diastolic 68–82
[2020-04-08] MEDS ORDERED: FERROUS SULFATE 325 MG EC TABLET PO SCH (08:00)
[2020-04-08] MEDS ORDERED: PRAVASTATIN SODIUM 10 MG TABLET PO SCH (09:00)
[2020-04-08] MEDS ORDERED: GABAPENTIN 300 MG CAPSULE PO SCH (09:00)
[2020-04-08] MEDS ORDERED: FOLIC ACID 1 MG TABLET PO SCH (09:00)
[2020-04-08] MEDS ORDERED: SODIUM CHLORIDE 0.9% 500 ML IV ONE (09:35)
[2020-04-08] MEDS: MULTIVITAMINS WITH MINERALS, THERAPEUTIC TABLET PO SCH (09:41)
[2020-04-08] MEDS: PRAVASTATIN SODIUM 20 MG TABLET PO SCH (09:41)
[2020-04-08] MEDS: ASCORBIC ACID 500 MG TABLET PO SCH (09:41)
[2020-04-08] MEDS: AmLODIPine BESYLATE 10 MG TABLET PO SCH (09:41)
[2020-04-08] MEDS: GABAPENTIN 300 MG CAPSULE PO SCH ×3 (09:41→20:43)
[2020-04-08] MEDS: MINOCYCLINE HCL 100 MG CAPSULE PO SCH ×2 (09:42→17:30)
[2020-04-08] MEDS: ENOXAPARIN SODIUM 40 MG/0.4 ML PF SYRINGE SQ SCH (09:43)
[2020-04-08] MEDS: BECLOMETHASONE DIPR HFA 40 MCG/PUFF 10.6 GM INHALER IH SCH ×2 (09:43→20:43)
[2020-04-08] MEDS: VANCOMYCIN HCL 1 GM/D5% WATER 200 ML IV SCH ×2 (10:00→20:43)
[2020-04-08] MEDS: ARIPiprazole 10 MG TABLET PO SCH (12:21)
[2020-04-08] MEDS: BusPIRone HCL 10 MG TABLET PO SCH ×2 (12:22→20:43)
[2020-04-08] MEDS: OMEPRAZOLE 20 MG CAPSULE PO SCH (12:22)
[2020-04-08] MEDS: SERTRALINE HCL 100 MG TABLET PO SCH (12:22)
[2020-04-08] MEDS ORDERED: LORazepam 1 MG TABLET PO ONE (16:30)
[2020-04-08] MEDS: TraZODone HCL 150 MG TABLET PO SCH (20:43)
[2020-04-08] MEDS: TraMADol HCL 50 MG TABLET PO PRN (20:44)
[2020-04-09 04:00] VITALS: BP 123/70
[2020-04-09] MEDS: TraMADol HCL 50 MG TABLET PO PRN (06:05)
[2020-04-09 07:18] LABS: ANION GAP 4 mmol/L (8-16); CALCIUM, TOTAL 8.4 mg/dL (8.8-10.5); CARBON DIOXIDE 27 mmol/L (22-29); CHLORIDE 101 mmol/L (98-107); CREATININE 1.12 mg/dL (0.60-1.30); GLOMERULAR FILTR. RATE CALC > 60 mL/min (>60); GLUCOSE,RANDOM 116 mg/dL (70-110); POTASSIUM 3.8 mmol/L (3.5-5.1); SODIUM SERUM 132 mmol/L (136-145); UREA NITROGEN, BLOOD 14 mg/dL (7-18)
[2020-04-09 07:48] VITALS: BP 136/88
[2020-04-09] MEDS: VANCOMYCIN HCL 1 GM/D5% WATER 200 ML IV SCH ×2 (08:07→19:55)
[2020-04-09] MEDS: BECLOMETHASONE DIPR HFA 40 MCG/PUFF 10.6 GM INHALER IH SCH ×2 (08:07→19:55)
[2020-04-09] MEDS: MINOCYCLINE HCL 100 MG CAPSULE PO SCH ×2 (08:09→16:12)
[2020-04-09] MEDS: ENOXAPARIN SODIUM 40 MG/0.4 ML PF SYRINGE SQ SCH (08:09)
[2020-04-09] MEDS: AmLODIPine BESYLATE 10 MG TABLET PO SCH (08:10)
[2020-04-09] MEDS: OMEPRAZOLE 20 MG CAPSULE PO SCH (08:10)
[2020-04-09] MEDS: MULTIVITAMINS WITH MINERALS, THERAPEUTIC TABLET PO SCH (08:10)
[2020-04-09] MEDS: BusPIRone HCL 10 MG TABLET PO SCH ×2 (08:10→19:55)
[2020-04-09] MEDS: GABAPENTIN 300 MG CAPSULE PO SCH ×3 (08:10→19:55)
[2020-04-09] MEDS: ASCORBIC ACID 500 MG TABLET PO SCH (08:10)
[2020-04-09] MEDS: PRAVASTATIN SODIUM 20 MG TABLET PO SCH (08:11)
[2020-04-09] MEDS: SERTRALINE HCL 100 MG TABLET PO SCH (08:11)
[2020-04-09] MEDS: ARIPiprazole 10 MG TABLET PO SCH (08:11)
[2020-04-09] MEDS ORDERED: GADOBUTROL 1 MMOL/ML 10 ML VIAL IVP ONE (09:16)
[2020-04-09] MEDS: LORazepam 1 MG TABLET PO PRN ×3 (10:57→23:15)
[2020-04-09 16:11] VITALS: BP 138/90
[2020-04-09 19:23] VITALS: BP 153/68
[2020-04-09] MEDS: TraZODone HCL 150 MG TABLET PO SCH (19:55)
[2020-04-09 23:14] VITALS: BP 131/75
[2020-04-10 05:58] VITALS: BP 134/72
[2020-04-10 06:59] LABS: ANION GAP 6 mmol/L (8-16); CALCIUM, TOTAL 8.9 mg/dL (8.8-10.5); CARBON DIOXIDE 28 mmol/L (22-29); CHLORIDE 100 mmol/L (98-107); CREATININE 1.09 mg/dL (0.60-1.30); GLOMERULAR FILTR. RATE CALC > 60 mL/min (>60); GLUCOSE,RANDOM 108 mg/dL (70-110); SODIUM SERUM 134 mmol/L (136-145); UREA NITROGEN, BLOOD 16 mg/dL (7-18); VANCOMYCIN,RANDOM 20.7 mcg/mL (25.0-50.0)
[2020-04-10 07:47] VITALS: BP 132/74
[2020-04-10 08:50] LABS: C-REACTIVE PROTEIN QUANT 0.21 mg/dL (0.00-0.30)
[2020-04-10] MEDS: ENOXAPARIN SODIUM 40 MG/0.4 ML PF SYRINGE SQ SCH (09:00)
[2020-04-10] MEDS: MULTIVITAMINS WITH MINERALS, THERAPEUTIC TABLET PO SCH (09:00)
[2020-04-10] MEDS: AmLODIPine BESYLATE 10 MG TABLET PO SCH (09:00)
[2020-04-10] MEDS: VANCOMYCIN HCL 1 GM/D5% WATER 200 ML IV SCH ×2 (09:00→20:03)
[2020-04-10] MEDS: PRAVASTATIN SODIUM 20 MG TABLET PO SCH (09:01)
[2020-04-10] MEDS: BusPIRone HCL 10 MG TABLET PO SCH ×2 (09:01→20:04)
[2020-04-10] MEDS: GABAPENTIN 300 MG CAPSULE PO SCH ×3 (09:01→20:04)
[2020-04-10] MEDS: ASCORBIC ACID 500 MG TABLET PO SCH (09:01)
[2020-04-10] MEDS: OMEPRAZOLE 20 MG CAPSULE PO SCH (09:01)
[2020-04-10] MEDS: ARIPiprazole 10 MG TABLET PO SCH (09:01)
[2020-04-10] MEDS: SERTRALINE HCL 100 MG TABLET PO SCH (09:01)
[2020-04-10] MEDS: MINOCYCLINE HCL 100 MG CAPSULE PO SCH ×2 (09:02→16:36)
[2020-04-10] MEDS: BECLOMETHASONE DIPR HFA 40 MCG/PUFF 10.6 GM INHALER IH SCH ×2 (09:02→20:04)
[2020-04-10] MEDS: LORazepam 1 MG TABLET PO PRN ×3 (09:07→20:04)
[2020-04-10 11:20] VITALS: BP 121/71
[2020-04-10] MEDS: TraMADol HCL 50 MG TABLET PO PRN (12:03)
[2020-04-10 15:15] VITALS: BP 128/72
[2020-04-10 19:14] VITALS: BP 127/73
[2020-04-10] MEDS: TraZODone HCL 150 MG TABLET PO SCH (20:03)
[2020-04-11 00:34] VITALS: BP 108/59
[2020-04-11 04:12] VITALS: BP 106/65
[2020-04-11 06:46] LABS: BASOPHILS % (AUTO) 0.5 % (0.0-2.0); EOSINOPHILS % (AUTO) 8.6 % (1.0-6.0); HEMOGLOBIN 11.4 g/dL (13.5-17.5); LYMPHOCYTES # (AUTO) 1.8 K/uL (1.0-4.8); LYMPHOCYTES % (AUTO) 23.2 % (22.0-44.0); MEAN CORPUSCULAR HEMOGLOBIN 27.8 pg (26.0-34.0); MEAN CORPUSCULAR HGB CONC 33.4 G/dL (31.0-37.0); MEAN CORPUSCULAR VOLUME 83 fL (80-100); MONOCYTES % (AUTO) 12.8 % (2.0-9.0); NEUTROPHILS # (AUTO) 4.2 K/uL (1.8-7.7); NEUTROPHILS % (AUTO) 54.9 % (40.0-70.0); PLATELET COUNT (AUTO) 294 K/uL (150-450); RED BLOOD CELL COUNT(AUTO) 4.09 MIL/uL (4.50-5.90); RED CELL DISTRIBUTION WIDTH 17.4 % (11.5-14.5)
[2020-04-11 07:01] LABS: ANION GAP 5 mmol/L (8-16); CALCIUM, TOTAL 8.8 mg/dL (8.8-10.5); CARBON DIOXIDE 28 mmol/L (22-29); CHLORIDE 101 mmol/L (98-107); CREATININE 1.14 mg/dL (0.60-1.30); GLOMERULAR FILTR. RATE CALC > 60 mL/min (>60); GLUCOSE,RANDOM 109 mg/dL (70-110); SODIUM SERUM 134 mmol/L (136-145); UREA NITROGEN, BLOOD 16 mg/dL (7-18)
[2020-04-11 07:56] VITALS: BP 111/81
[2020-04-11] MEDS: VANCOMYCIN HCL 1 GM/D5% WATER 200 ML IV SCH ×2 (08:04→20:00)
[2020-04-11] MEDS: MINOCYCLINE HCL 100 MG CAPSULE PO SCH ×2 (08:04→16:56)
[2020-04-11] MEDS: ASCORBIC ACID 500 MG TABLET PO SCH (08:05)
[2020-04-11] MEDS: PRAVASTATIN SODIUM 20 MG TABLET PO SCH (08:05)
[2020-04-11] MEDS: AmLODIPine BESYLATE 10 MG TABLET PO SCH (08:05)
[2020-04-11] MEDS: MULTIVITAMINS WITH MINERALS, THERAPEUTIC TABLET PO SCH (08:05)
[2020-04-11] MEDS: OMEPRAZOLE 20 MG CAPSULE PO SCH (08:05)
[2020-04-11] MEDS: GABAPENTIN 300 MG CAPSULE PO SCH ×3 (08:05→20:01)
[2020-04-11] MEDS: ARIPiprazole 10 MG TABLET PO SCH (08:05)
[2020-04-11] MEDS: BusPIRone HCL 10 MG TABLET PO SCH ×2 (08:05→20:01)
[2020-04-11] MEDS: ENOXAPARIN SODIUM 40 MG/0.4 ML PF SYRINGE SQ SCH ×2 (08:06→08:18)
[2020-04-11] MEDS: SERTRALINE HCL 100 MG TABLET PO SCH (08:06)
[2020-04-11] MEDS: LORazepam 1 MG TABLET PO PRN ×2 (08:12→18:09)
[2020-04-11] MEDS: BECLOMETHASONE DIPR HFA 40 MCG/PUFF 10.6 GM INHALER IH SCH ×2 (08:12→20:00)
[2020-04-11 09:15] LABS: PROTHROMBIN TIME 10.8 SEC (9.4-11.6)
[2020-04-11] MEDS ORDERED: RINGERS SOLUTION,LACTATED 1,000 ML IV ONE ×2 (09:47→10:30)
[2020-04-11] MEDS ORDERED: BUPIVACAINE HCL/PF 0.5% 30 ML VIAL ONE (10:04)
[2020-04-11] MEDS ORDERED: LIDOCAINE/PF 1% 30 ML VIAL ONE (10:05)
[2020-04-11] MEDS ORDERED: HYDROmorphone 2 MG/ML SYRINGE IVP PRN (11:45)
[2020-04-11] MEDS ORDERED: FentaNYL CITRATE-PF 100 MCG/2 ML VIAL IVP PRN (11:45)
[2020-04-11] MEDS ORDERED: VANCOMYCIN HCL 1 GM/VIAL ONE (11:53)
[2020-04-11] MEDS ORDERED: BACITRACIN 50,000 UNITS/VIAL ONE (11:53)
[2020-04-11] MEDS ORDERED: SODIUM CHLORIDE 0.9% 1,000 ML ONE (11:53)
[2020-04-11] MEDS ORDERED: SODIUM CHLORIDE 0.9% 10 ML ONE (11:54)
[2020-04-11] MEDS ORDERED: MIDAZOLAM HCL 2 MG/2 ML VIAL IVP ONE (12:00)
[2020-04-11] MEDS ORDERED: ONDANSETRON HCL 4 MG/2 ML VIAL IVP ONE (12:00)
[2020-04-11] MEDS ORDERED: LIDOCAINE/PF 2% 5 ML VIAL INJ ONE (12:00)
[2020-04-11] MEDS ORDERED: DEXAMETHASONE SOD PHOS 4 MG/ML VIAL IVP ONE (12:00)
[2020-04-11] MEDS ORDERED: FentaNYL CITRATE-PF 100 MCG/2 ML VIAL IVP ONE (12:00)
[2020-04-11] MEDS ORDERED: PROPOFOL 1% 20 ML VIAL IVP ONE (12:00)
[2020-04-11] MEDS ORDERED: THROMBIN, BOVINE 20000 UNITS/VIAL POWDER TP ONE ×2 (12:28→12:52)
[2020-04-11] MEDS ORDERED: GELATIN SPONGE,ABSORBABLE 100 MM TP ONE ×2 (12:28→12:51)
[2020-04-11 14:09] VITALS: BP 130/85
[2020-04-11 16:41] LABS: HEMATOCRIT 34.4 % (41-53)
[2020-04-11] MEDS: TraMADol HCL 50 MG TABLET PO PRN (16:58)
[2020-04-11] MEDS: OXYGEN THERAPY IH SCH (20:00)
[2020-04-11] MEDS: TraZODone HCL 150 MG TABLET PO SCH (20:01)
[2020-04-11 20:14] VITALS: BP 116/69
[2020-04-12 06:08] VITALS: BP 119/76
[2020-04-12 07:01] LABS: BASOPHILS % (AUTO) 0.6 % (0.0-2.0); HEMATOCRIT 32.6 % (41-53); HEMOGLOBIN 10.5 g/dL (13.5-17.5); LYMPHOCYTES # (AUTO) 2.3 K/uL (1.0-4.8); LYMPHOCYTES % (AUTO) 23.6 % (22.0-44.0); MEAN CORPUSCULAR HEMOGLOBIN 27.1 pg (26.0-34.0); MEAN CORPUSCULAR HGB CONC 32.4 G/dL (31.0-37.0); MEAN CORPUSCULAR VOLUME 84 fL (80-100); MONOCYTES # (AUTO) 1.2 K/uL (0.1-1.0); MONOCYTES % (AUTO) 12.7 % (2.0-9.0); NEUTROPHILS # (AUTO) 5.5 K/uL (1.8-7.7); NEUTROPHILS % (AUTO) 56.1 % (40.0-70.0); PLATELET COUNT (AUTO) 302 K/uL (150-450)
[2020-04-12 07:24] LABS: ANION GAP 5 mmol/L (8-16); CALCIUM, TOTAL 8.6 mg/dL (8.8-10.5); CARBON DIOXIDE 29 mmol/L (22-29); CHLORIDE 101 mmol/L (98-107); CREATININE 1.13 mg/dL (0.60-1.30); GLOMERULAR FILTR. RATE CALC > 60 mL/min (>60); GLUCOSE,RANDOM 99 mg/dL (70-110); POTASSIUM 4.2 mmol/L (3.5-5.1); SODIUM SERUM 135 mmol/L (136-145); UREA NITROGEN, BLOOD 19 mg/dL (7-18)
[2020-04-12 08:00] VITALS: BP 127/72
[2020-04-12] MEDS: OXYGEN THERAPY IH SCH ×2 (08:00→20:00)
[2020-04-12] MEDS: TraMADol HCL 50 MG TABLET PO PRN (08:24)
[2020-04-12] MEDS: VANCOMYCIN HCL 1 GM/D5% WATER 200 ML IV SCH (08:24)
[2020-04-12] MEDS: BusPIRone HCL 10 MG TABLET PO SCH ×2 (08:25→20:02)
[2020-04-12] MEDS: GABAPENTIN 300 MG CAPSULE PO SCH ×3 (08:25→20:02)
[2020-04-12] MEDS: OMEPRAZOLE 20 MG CAPSULE PO SCH (08:25)
[2020-04-12] MEDS: MULTIVITAMINS WITH MINERALS, THERAPEUTIC TABLET PO SCH (08:25)
[2020-04-12] MEDS: ASCORBIC ACID 500 MG TABLET PO SCH (08:25)
[2020-04-12] MEDS: SERTRALINE HCL 100 MG TABLET PO SCH (08:25)
[2020-04-12] MEDS: PRAVASTATIN SODIUM 20 MG TABLET PO SCH (08:25)
[2020-04-12] MEDS: ARIPiprazole 10 MG TABLET PO SCH (08:26)
[2020-04-12] MEDS: BECLOMETHASONE DIPR HFA 40 MCG/PUFF 10.6 GM INHALER IH SCH ×2 (08:26→20:03)
[2020-04-12] MEDS: MINOCYCLINE HCL 100 MG CAPSULE PO SCH (08:26)
[2020-04-12] MEDS: AmLODIPine BESYLATE 10 MG TABLET PO SCH (08:26)
[2020-04-12] MEDS: ENOXAPARIN SODIUM 40 MG/0.4 ML PF SYRINGE SQ SCH (08:54)
[2020-04-12] MEDS: LORazepam 1 MG TABLET PO PRN ×2 (11:01→18:21)
[2020-04-12 11:29] VITALS: BP 112/69
[2020-04-12] MEDS ORDERED: *CLINICAL-CEFEPIME DOSING CLINICAL ONE (14:15)
[2020-04-12] MEDS ORDERED: CEFEPIME HCL 1 GM in DEXTROSE 5%-WATER 50 ML IV ONE (14:15)
[2020-04-12] MEDS: MORPHINE SULFATE 2 MG/ML SYRINGE IVP PRN ×2 (14:50→20:04)
[2020-04-12 15:00] VITALS: BP 111/67
[2020-04-12 20:00] VITALS: BP 135/80
[2020-04-12] MEDS: TraZODone HCL 150 MG TABLET PO SCH (20:02)
[2020-04-12] MEDS: CEFEPIME HCL 2 GM in DEXTROSE 5%-WATER 50 ML IV SCH (22:16)
[2020-04-13] MEDS ORDERED: VANCOMYCIN HCL 1 GM/VIAL ONE (05:59)
[2020-04-13] MEDS ORDERED: LIDOCAINE/PF 1% 30 ML VIAL ONE (05:59)
[2020-04-13] MEDS ORDERED: BUPIVACAINE HCL/PF 0.25% 30 ML VIAL ONE (05:59)
[2020-04-13] MEDS ORDERED: SODIUM CL IRRIG SOLN BAG 0 ML IRRIG ONE (06:00)
[2020-04-13] MEDS ORDERED: BACITRACIN 50,000 UNITS/VIAL ONE (06:00)
[2020-04-13] MEDS ORDERED: GELATIN SPONGE,ABSORBABLE 50 MM TP ONE (06:00)
[2020-04-13] MEDS ORDERED: SODIUM CHLORIDE 0.9% 0 ML ONE (06:00)
[2020-04-13] MEDS ORDERED: THROMBIN, BOVINE 20000 UNITS/VIAL POWDER TP ONE (06:00)
[2020-04-13] MEDS ORDERED: SODIUM CHLORIDE 0.9% 10 ML ONE (06:01)
[2020-04-13 06:33] LABS: BASOPHILS % (AUTO) 0.6 % (0.0-2.0); EOSINOPHILS % (AUTO) 10.1 % (1.0-6.0); HEMATOCRIT 28.9 % (41-53); HEMOGLOBIN 9.6 g/dL (13.5-17.5); LYMPHOCYTES # (AUTO) 1.7 K/uL (1.0-4.8); LYMPHOCYTES % (AUTO) 21.1 % (22.0-44.0); MEAN CORPUSCULAR HEMOGLOBIN 27.8 pg (26.0-34.0); MEAN CORPUSCULAR HGB CONC 33.3 G/dL (31.0-37.0); MEAN CORPUSCULAR VOLUME 83 fL (80-100); MONOCYTES # (AUTO) 1.1 K/uL (0.1-1.0); MONOCYTES % (AUTO) 13.3 % (2.0-9.0); NEUTROPHILS # (AUTO) 4.4 K/uL (1.8-7.7); NEUTROPHILS % (AUTO) 54.9 % (40.0-70.0); PLATELET COUNT (AUTO) 269 K/uL (150-450); RED BLOOD CELL COUNT(AUTO) 3.46 MIL/uL (4.50-5.90); RED CELL DISTRIBUTION WIDTH 16.6 % (11.5-14.5)
[2020-04-13 06:40] LABS: ANION GAP 4 mmol/L (8-16); CALCIUM, TOTAL 8.4 mg/dL (8.8-10.5); CARBON DIOXIDE 31 mmol/L (22-29); CHLORIDE 104 mmol/L (98-107); GLOMERULAR FILTR. RATE CALC > 60 mL/min (>60); GLUCOSE,RANDOM 112 mg/dL (70-110); SODIUM SERUM 139 mmol/L (136-145); UREA NITROGEN, BLOOD 17 mg/dL (7-18)
[2020-04-13] MEDS ORDERED: HYDROmorphone 2 MG/ML SYRINGE IVP PRN (06:45)
[2020-04-13] MEDS ORDERED: FentaNYL CITRATE-PF 100 MCG/2 ML VIAL IVP PRN (06:45)
[2020-04-13] MEDS ORDERED: RINGERS SOLUTION,LACTATED 0 ML IV ONE (06:50)
[2020-04-13] MEDS ORDERED: RINGERS SOLUTION,LACTATED 1,000 ML IV ONE (06:53)
[2020-04-13] MEDS ORDERED: NEOMYCIN/BACITRACIN/POLYMYXIN B OINTMENT PACKET TP ONE ×2 (07:21→07:22)
[2020-04-13] MEDS ORDERED: OXYGEN THERAPY IH SCH (08:00)
[2020-04-13] MEDS: OXYGEN THERAPY IH SCH ×2 (08:00→20:00)
[2020-04-13 08:34] VITALS: BP 120/54
[2020-04-13] MEDS: MORPHINE SULFATE 2 MG/ML SYRINGE IVP PRN ×2 (08:36→15:16)
[2020-04-13] MEDS: CEFEPIME HCL 2 GM in DEXTROSE 5%-WATER 50 ML IV SCH (09:28)
[2020-04-13] MEDS: BECLOMETHASONE DIPR HFA 40 MCG/PUFF 10.6 GM INHALER IH SCH ×2 (09:28→20:28)
[2020-04-13] MEDS: PRAVASTATIN SODIUM 20 MG TABLET PO SCH (09:29)
[2020-04-13] MEDS: MULTIVITAMINS WITH MINERALS, THERAPEUTIC TABLET PO SCH (09:29)
[2020-04-13] MEDS: BusPIRone HCL 10 MG TABLET PO SCH ×2 (09:29→20:28)
[2020-04-13] MEDS: ARIPiprazole 10 MG TABLET PO SCH (09:29)
[2020-04-13] MEDS: AmLODIPine BESYLATE 10 MG TABLET PO SCH (09:29)
[2020-04-13] MEDS: GABAPENTIN 300 MG CAPSULE PO SCH ×3 (09:29→20:28)
[2020-04-13] MEDS: OMEPRAZOLE 20 MG CAPSULE PO SCH (09:29)
[2020-04-13] MEDS: SERTRALINE HCL 100 MG TABLET PO SCH (09:29)
[2020-04-13] MEDS: ASCORBIC ACID 500 MG TABLET PO SCH (09:30)
[2020-04-13 09:45] LABS: HEMATOCRIT 30.3 % (41-53); HEMOGLOBIN 10.1 g/dL (13.5-17.5)
[2020-04-13] MEDS: TraMADol HCL 50 MG TABLET PO PRN (11:24)
[2020-04-13] MEDS: LORazepam 1 MG TABLET PO PRN (11:30)
[2020-04-13] MEDS ORDERED: ONDANSETRON HCL 4 MG/2 ML VIAL IVP ONE (12:00)
[2020-04-13] MEDS ORDERED: MIDAZOLAM HCL 2 MG/2 ML VIAL IVP ONE (12:00)
[2020-04-13] MEDS ORDERED: LIDOCAINE/PF 2% 5 ML VIAL INJ ONE (12:00)
[2020-04-13] MEDS ORDERED: FentaNYL CITRATE-PF 100 MCG/2 ML VIAL IVP ONE (12:00)
[2020-04-13] MEDS ORDERED: PROPOFOL 1% 20 ML VIAL IVP ONE (12:00)
[2020-04-13 15:26] VITALS: BP 114/66
[2020-04-13] MEDS ORDERED: SODIUM CHLORIDE 0.9% 500 ML IV ONE (16:26)
[2020-04-13] MEDS: DAPTOMYCIN 500 MG in SODIUM CHLORIDE 0.9% 50 ML IV SCH (16:29)
[2020-04-13] MEDS: AZTREONAM 2 GM in DEXTROSE 5%-WATER 50 ML IV SCH (17:23)
[2020-04-13] MEDS: MINOCYCLINE HCL 100 MG CAPSULE PO SCH (18:06)
[2020-04-13 19:40] VITALS: BP 119/72
[2020-04-13] MEDS: TraZODone HCL 150 MG TABLET PO SCH (20:28)
[2020-04-13 23:00] VITALS: BP 110/61
[2020-04-14] MEDS: AZTREONAM 2 GM in DEXTROSE 5%-WATER 50 ML IV SCH ×3 (00:29→17:07)
[2020-04-14 05:40] VITALS: BP 112/70
[2020-04-14 06:40] LABS: BASOPHILS % (AUTO) 0.5 % (0.0-2.0); EOSINOPHILS % (AUTO) 10.3 % (1.0-6.0); HEMATOCRIT 30.6 % (41-53); HEMOGLOBIN 9.8 g/dL (13.5-17.5); LYMPHOCYTES # (AUTO) 1.6 K/uL (1.0-4.8); LYMPHOCYTES % (AUTO) 18.5 % (22.0-44.0); MEAN CORPUSCULAR HEMOGLOBIN 26.7 pg (26.0-34.0); MEAN CORPUSCULAR VOLUME 83 fL (80-100); MONOCYTES # (AUTO) 1.1 K/uL (0.1-1.0); MONOCYTES % (AUTO) 12.3 % (2.0-9.0); NEUTROPHILS # (AUTO) 5.1 K/uL (1.8-7.7); NEUTROPHILS % (AUTO) 58.4 % (40.0-70.0); PLATELET COUNT (AUTO) 281 K/uL (150-450); RED BLOOD CELL COUNT(AUTO) 3.67 MIL/uL (4.50-5.90); RED CELL DISTRIBUTION WIDTH 16.8 % (11.5-14.5)
[2020-04-14 06:54] LABS: C-REACTIVE PROTEIN QUANT 1.29 mg/dL (0.00-0.30); CALCIUM, TOTAL 8.4 mg/dL (8.8-10.5); CREATININE 1.23 mg/dL (0.60-1.30)
[2020-04-14 07:45] VITALS: BP 110/59
[2020-04-14] MEDS: OXYGEN THERAPY IH SCH ×2 (08:00→20:00)
[2020-04-14] MEDS: ARIPiprazole 10 MG TABLET PO SCH (08:31)
[2020-04-14] MEDS: GABAPENTIN 300 MG CAPSULE PO SCH ×3 (08:31→19:44)
[2020-04-14] MEDS: PRAVASTATIN SODIUM 20 MG TABLET PO SCH (08:32)
[2020-04-14] MEDS: BECLOMETHASONE DIPR HFA 40 MCG/PUFF 10.6 GM INHALER IH SCH ×2 (08:32→19:44)
[2020-04-14] MEDS: OMEPRAZOLE 20 MG CAPSULE PO SCH (08:32)
[2020-04-14] MEDS: TraMADol HCL 50 MG TABLET PO PRN (08:33)
[2020-04-14] MEDS: MULTIVITAMINS WITH MINERALS, THERAPEUTIC TABLET PO SCH (08:33)
[2020-04-14] MEDS: ASCORBIC ACID 500 MG TABLET PO SCH (08:33)
[2020-04-14] MEDS: SERTRALINE HCL 100 MG TABLET PO SCH (08:33)
[2020-04-14] MEDS: AmLODIPine BESYLATE 10 MG TABLET PO SCH (08:33)
[2020-04-14] MEDS: MINOCYCLINE HCL 100 MG CAPSULE PO SCH ×2 (08:34→18:50)
[2020-04-14] MEDS: BusPIRone HCL 10 MG TABLET PO SCH ×2 (08:37→19:44)
[2020-04-14 11:20] VITALS: BP 113/63
[2020-04-14] MEDS: MORPHINE SULFATE 2 MG/ML SYRINGE IVP PRN ×2 (12:43→18:50)
[2020-04-14 15:20] VITALS: BP 114/66
[2020-04-14] MEDS: DAPTOMYCIN 500 MG in SODIUM CHLORIDE 0.9% 50 ML IV SCH (17:45)
[2020-04-14] MEDS: LEVOFLOXACIN 750 MG/D5% WATER 150 ML IV SCH (18:51)
[2020-04-14 19:30] VITALS: BP 117/76
[2020-04-14] MEDS: TraZODone HCL 150 MG TABLET PO SCH (19:44)
[2020-04-15] VITALS: BP 101/61
[2020-04-15] MEDS: CEFEPIME HCL 2 GM in DEXTROSE 5%-WATER 50 ML IV SCH ×3 (00:30→17:31)
[2020-04-15 05:00] VITALS: BP 119/66
[2020-04-15 07:51] LABS: BASOPHILS % (AUTO) 0.6 % (0.0-2.0); EOSINOPHILS % (AUTO) 9.3 % (1.0-6.0); HEMATOCRIT 30.5 % (41-53); LYMPHOCYTES # (AUTO) 1.8 K/uL (1.0-4.8); LYMPHOCYTES % (AUTO) 19.9 % (22.0-44.0); MEAN CORPUSCULAR HEMOGLOBIN 27.4 pg (26.0-34.0); MEAN CORPUSCULAR HGB CONC 32.9 G/dL (31.0-37.0); MEAN CORPUSCULAR VOLUME 83 fL (80-100); MONOCYTES # (AUTO) 0.9 K/uL (0.1-1.0); MONOCYTES % (AUTO) 9.6 % (2.0-9.0); NEUTROPHILS # (AUTO) 5.5 K/uL (1.8-7.7); NEUTROPHILS % (AUTO) 60.6 % (40.0-70.0); PLATELET COUNT (AUTO) 319 K/uL (150-450); RED BLOOD CELL COUNT(AUTO) 3.66 MIL/uL (4.50-5.90); RED CELL DISTRIBUTION WIDTH 16.8 % (11.5-14.5)
[2020-04-15 07:53] VITALS: BP 98/49
[2020-04-15] MEDS: OXYGEN THERAPY IH SCH ×2 (08:00→20:00)
[2020-04-15 08:22] LABS: ANION GAP 4 mmol/L (8-16); C-REACTIVE PROTEIN QUANT 0.93 mg/dL (0.00-0.30); CALCIUM, TOTAL 8.6 mg/dL (8.8-10.5); CARBON DIOXIDE 31 mmol/L (22-29); CHLORIDE 101 mmol/L (98-107); CREATINE KINASE, TOTAL ONLY 76 U/L (39-308); CREATININE 1.12 mg/dL (0.60-1.30); GLOMERULAR FILTR. RATE CALC > 60 mL/min (>60); GLUCOSE,RANDOM 90 mg/dL (70-110); POTASSIUM 4.2 mmol/L (3.5-5.1); SODIUM SERUM 136 mmol/L (136-145); UREA NITROGEN, BLOOD 21 mg/dL (7-18)
[2020-04-15] MEDS: MINOCYCLINE HCL 100 MG CAPSULE PO SCH ×2 (08:31→18:36)
[2020-04-15] MEDS: PRAVASTATIN SODIUM 20 MG TABLET PO SCH (08:31)
[2020-04-15] MEDS: BECLOMETHASONE DIPR HFA 40 MCG/PUFF 10.6 GM INHALER IH SCH ×2 (08:31→20:10)
[2020-04-15] MEDS: OMEPRAZOLE 20 MG CAPSULE PO SCH (08:32)
[2020-04-15] MEDS: ARIPiprazole 10 MG TABLET PO SCH (08:32)
[2020-04-15] MEDS: BusPIRone HCL 10 MG TABLET PO SCH ×2 (08:32→20:10)
[2020-04-15] MEDS: GABAPENTIN 300 MG CAPSULE PO SCH ×3 (08:32→20:10)
[2020-04-15] MEDS: SERTRALINE HCL 100 MG TABLET PO SCH (08:32)
[2020-04-15] MEDS: MULTIVITAMINS WITH MINERALS, THERAPEUTIC TABLET PO SCH (08:32)
[2020-04-15] MEDS: AmLODIPine BESYLATE 10 MG TABLET PO SCH (08:32)
[2020-04-15] MEDS: ASCORBIC ACID 500 MG TABLET PO SCH (08:32)
[2020-04-15 08:33] VITALS: BP 119/65
[2020-04-15] MEDS: LORazepam 1 MG TABLET PO PRN (14:45)
[2020-04-15 16:06] VITALS: BP 120/63
[2020-04-15] MEDS: DAPTOMYCIN 500 MG in SODIUM CHLORIDE 0.9% 50 ML IV SCH (16:27)
[2020-04-15] MEDS: MORPHINE SULFATE 2 MG/ML SYRINGE IVP PRN (17:31)
[2020-04-15] MEDS: LEVOFLOXACIN 750 MG/D5% WATER 150 ML IV SCH (18:36)
[2020-04-15] MEDS: TraZODone HCL 150 MG TABLET PO SCH (20:10)
[2020-04-15] MEDS: TraMADol HCL 50 MG TABLET PO PRN (20:14)
[2020-04-16] MEDS: CEFEPIME HCL 2 GM in DEXTROSE 5%-WATER 50 ML IV SCH ×2 (01:47→08:14)
[2020-04-16 05:04] VITALS: BP 101/61
[2020-04-16 07:04] LABS: ANION GAP 5 mmol/L (8-16); CALCIUM, TOTAL 8.7 mg/dL (8.8-10.5); CARBON DIOXIDE 28 mmol/L (22-29); CHLORIDE 101 mmol/L (98-107); CREATININE 1.02 mg/dL (0.60-1.30); GLOMERULAR FILTR. RATE CALC > 60 mL/min (>60); GLUCOSE,RANDOM 96 mg/dL (70-110); SODIUM SERUM 134 mmol/L (136-145); UREA NITROGEN, BLOOD 22 mg/dL (7-18)
[2020-04-16 07:25] VITALS: BP 103/71
[2020-04-16] MEDS: OXYGEN THERAPY IH SCH (08:00)
[2020-04-16] MEDS: MINOCYCLINE HCL 100 MG CAPSULE PO SCH (08:15)
[2020-04-16] MEDS: GABAPENTIN 300 MG CAPSULE PO SCH (08:15)
[2020-04-16] MEDS: SERTRALINE HCL 100 MG TABLET PO SCH (08:15)
[2020-04-16] MEDS: OMEPRAZOLE 20 MG CAPSULE PO SCH (08:16)
[2020-04-16] MEDS: MULTIVITAMINS WITH MINERALS, THERAPEUTIC TABLET PO SCH (08:16)
[2020-04-16] MEDS: ASCORBIC ACID 500 MG TABLET PO SCH (08:16)
[2020-04-16] MEDS: PRAVASTATIN SODIUM 20 MG TABLET PO SCH (08:16)
[2020-04-16] MEDS: ARIPiprazole 10 MG TABLET PO SCH (08:16)
[2020-04-16] MEDS: BusPIRone HCL 10 MG TABLET PO SCH (08:16)
[2020-04-16] MEDS: BECLOMETHASONE DIPR HFA 40 MCG/PUFF 10.6 GM INHALER IH SCH (08:17)
[2020-04-16] MEDS ORDERED: SODIUM CHLORIDE 0.9% 500 ML IV ONE (08:26)
[2020-04-16] MEDS: LORazepam 1 MG TABLET PO PRN (09:42)
[2020-04-16] MEDS: AmLODIPine BESYLATE 10 MG TABLET PO SCH (09:42)
[2020-04-16 11:02] VITALS: BP 111/62
[2020-04-16] MEDS: MORPHINE SULFATE 2 MG/ML SYRINGE IVP PRN (11:07)
[2020-04-16 15:14] VITALS: BP 124/69
== END 2020-04-16 16:25 | disposition left against medical advice (07) | DRG 305 ==
LOC: EMS 11:45 → UNDOADMIN 16:45 → 6N 16:45 → 4E 04-08 07:30 → 6N 04-10 17:40
PROVIDERS: ADMIT Hospitalist; ATTEND Hospitalist
PROC: 0Y6M0ZF Detachment at Right Foot, Partial 5th Ray, Open Approach (ICD-10-PCS; principal; 2020-04-11 11:30)
PROC: 0JBQ0ZZ Excision of Right Foot Subcutaneous Tissue and Fascia, Open Approach (ICD-10-PCS; 2020-04-13)
DX: E11.69 Type 2 diabetes mellitus with other specified complication (principal); F25.9 Schizoaffective disorder, unspecified; I10 Essential (primary) hypertension; L97.519 Non-pressure chronic ulcer of other part of right foot with unspecified severity; Z91.19 Patient's noncompliance with other medical treatment and regimen; F17.200 Nicotine dependence, unspecified, uncomplicated; E11.40 Type 2 diabetes mellitus with diabetic neuropathy, unspecified; Z16.21 Resistance to vancomycin; E44.1 Mild protein-calorie malnutrition; Z68.27 Body mass index [BMI] 27.0-27.9, adult; F32.9 Major depressive disorder, single episode, unspecified; F41.9 Anxiety disorder, unspecified; R45.851 Suicidal ideations; J44.9 Chronic obstructive pulmonary disease, unspecified; Z86.73 Personal history of transient ischemic attack (TIA), and cerebral infarction without residual deficits; I25.2 Old myocardial infarction; R56.9 Unspecified convulsions; Z88.8 Allergy status to other drugs, medicaments and biological substances; Z88.0 Allergy status to penicillin; Z88.6 Allergy status to analgesic agent; E78.5 Hyperlipidemia, unspecified; M86.8X7 Other osteomyelitis, ankle and foot; K74.60 Unspecified cirrhosis of liver; B19.20 Unspecified viral hepatitis C without hepatic coma; F14.10 Cocaine abuse, uncomplicated; M54.5 Low back pain; G89.29 Other chronic pain; G47.00 Insomnia, unspecified; F19.10 Other psychoactive substance abuse, uncomplicated; B95.2 Enterococcus as the cause of diseases classified elsewhere; F12.90 Cannabis use, unspecified, uncomplicated; E11.621 Type 2 diabetes mellitus with foot ulcer; F10.10 Alcohol abuse, uncomplicated; Z20.828 Contact with and (suspected) exposure to other viral communicable diseases
CPT/HCPCS: 73720; 85014; 85018; 85651; 86140; 87070; 87081; 87205; 88305; 88311; 93005; 97116; 97163; 97530; A9585; G0378; G0480; J0692; J0878; J1100; J1170; J1650; J1956; J2250; J2270; J2405; J2704; J3010; J3370; J3490; J3535; J7030; J7040; J7050; J7060; J7120

== ENCOUNTER 2021-01-09 22:52 | Inpatient (IN) | payer MEDICAID, OTHER ==
[~2021-01-09] VITALS: Ht 167.6 cm; Wt 76.7 kg
[~2021-01-09 22:52] MED LIST changes: +AMLO-258 PO; -ARIP20TA10 PO; +ARIP20TA21 PO; +ENOX40DI9 SQ; +OMEP10 PO; -OMEP20 PO; +PRAV20TA4 PO; +VANC1.5V3 IVPB
[2021-01-09 23:28] LABS: BASOPHILS % (AUTO) 0.5 % (0.0-2.0); EOSINOPHILS % (AUTO) 3.9 % (1.0-6.0); HEMATOCRIT 33.3 % (41-53); HEMOGLOBIN 10.8 g/dL (13.5-17.5); LYMPHOCYTES # (AUTO) 1.2 K/uL (1.0-4.8); MEAN CORPUSCULAR HEMOGLOBIN 26.8 pg (26.0-34.0); MEAN CORPUSCULAR HGB CONC 32.6 G/dL (31.0-37.0); MEAN CORPUSCULAR VOLUME 82 fL (80-100); MONOCYTES # (AUTO) 1.2 K/uL (0.1-1.0); MONOCYTES % (AUTO) 12.6 % (2.0-9.0); NEUTROPHILS # (AUTO) 6.7 K/uL (1.8-7.7); PLATELET COUNT (AUTO) 320 K/uL (150-450); RED BLOOD CELL COUNT(AUTO) 4.05 MIL/uL (4.50-5.90); RED CELL DISTRIBUTION WIDTH 21.1 % (11.5-14.5)
[2021-01-09 23:38] LABS: ANION GAP 8 mmol/L (8-16); CALCIUM, TOTAL 8.2 mg/dL (8.8-10.5); CARBON DIOXIDE 26 mmol/L (22-29); CHLORIDE 100 mmol/L (98-107); CREATININE 1.24 mg/dL (0.60-1.30); GLOMERULAR FILTR. RATE CALC 59 mL/min (>60); GLUCOSE,RANDOM 117 mg/dL (70-110); SODIUM SERUM 134 mmol/L (136-145); UREA NITROGEN, BLOOD 19 mg/dL (7-18)
[2021-01-09 23:44] LABS: ALANINE AMINOTRANSFERASE 40 U/L (12-78); ALBUMIN 3.4 g/dL (3.4-5.0); ALKALINE PHOSPHATASE 124 U/L (46-116); ASPARTATE AMINOTRANSFERASE 30 U/L (15-37); BILIRUBIN,TOTAL 0.4 mg/dL (0.1-1.0); TOTAL PROTEIN, SERUM 7.8 g/dL (6.4-8.2)
[2021-01-09 23:45] LABS: COVID AG,FIA SOURCE NASOPHARYNGEAL
[2021-01-10] MEDS ORDERED: ZOLPIDEM TARTRATE 10 MG TABLET PO PRN
[2021-01-10 02:45] VITALS: BP 126/62
[2021-01-10] MEDS ORDERED: LOPERAMIDE HCL 2 MG CAPSULE PO PRN (07:00)
[2021-01-10] MEDS ORDERED: MAGNESIUM HYDROXIDE SUSPENSION 30 ML UDCUP PO PRN (07:00)
[2021-01-10] MEDS ORDERED: ACETAMINOPHEN 325 MG TABLET PO PRN (07:00)
[2021-01-10] MEDS ORDERED: MAG HYDROX/AL HYDROX/SIMETH ES 30 ML SUSPENSION UDCUP PO PRN (07:00)
[2021-01-10] MEDS ORDERED: ALBUTEROL SULFATE HFA 90 MCG/PUFF 8 GM INHALER IH PRN (07:00)
[2021-01-10] MEDS ORDERED: PETROLATUM,WHITE 28 GM JELLY TP PRN (07:00)
[2021-01-10] MEDS ORDERED: OMEPRAZOLE 20 MG CAPSULE PO PRN (07:00)
[2021-01-10] MEDS ORDERED: CloNIDine HCL 0.1 MG TABLET PO PRN (07:00)
[2021-01-10] MEDS ORDERED: BACITRACIN 28 GM OINTMENT TP PRN (07:00)
[2021-01-10] MEDS ORDERED: DOCUSATE SODIUM 100 MG CAPSULE PO PRN (07:00)
[2021-01-10] MEDS ORDERED: BENZOCAINE/MENTHOL LOZENGE PO PRN (07:00)
[2021-01-10] MEDS ORDERED: ONDANSETRON HCL 4 MG TABLET PO PRN (07:00)
[2021-01-10 08:00] VITALS: BP 109/58
[2021-01-10] MEDS: GABAPENTIN 300 MG CAPSULE PO SCH ×3 (08:19→16:00)
[2021-01-10] MEDS: AmLODIPine BESYLATE 10 MG TABLET PO SCH (08:19)
[2021-01-10] MEDS: PRAVASTATIN SODIUM 20 MG TABLET PO SCH (08:19)
[2021-01-10] MEDS: FERROUS SULFATE 325 MG EC TABLET PO SCH (08:20)
[2021-01-10 10:45] VITALS: BP 104/61
[2021-01-10 14:45] VITALS: BP 95/53
[2021-01-10 16:04] VITALS: BP 102/55
[2021-01-10] MEDS: OLANZapine 5 MG TABLET PO SCH (20:13)
[2021-01-11] MEDS: FERROUS SULFATE 325 MG EC TABLET PO SCH (07:14)
[2021-01-11 08:00] VITALS: BP 136/81
[2021-01-11] MEDS: PRAVASTATIN SODIUM 20 MG TABLET PO SCH (08:53)
[2021-01-11] MEDS: OLANZapine 5 MG RAPDIS TABLET PO PRN (08:53)
[2021-01-11] MEDS: GABAPENTIN 300 MG CAPSULE PO SCH ×3 (08:53→16:27)
[2021-01-11] MEDS: MULTIVITAMINS WITH MINERALS, THERAPEUTIC TABLET PO SCH (08:54)
[2021-01-11] MEDS: AmLODIPine BESYLATE 10 MG TABLET PO SCH (08:55)
[2021-01-11] MEDS: IBUPROFEN 600 MG TABLET PO PRN (11:36)
[2021-01-11] MEDS: LORazepam 2 MG TABLET PO PRN (11:54)
[2021-01-11 12:17] LABS: GLUCOMETER DEV NAME(LOC) 3E.C; GLUCOSE,POINT OF CARE 136 MG/DL (70-110)
[2021-01-11 16:35] VITALS: BP 108/67
[2021-01-11] MEDS: MUPIROCIN CALCIUM 2% 22 GM OINTMENT NASAL SCH (17:10)
[2021-01-11] MEDS: OLANZapine 5 MG TABLET PO SCH (20:08)
[2021-01-12 05:47] LABS: CHOL/HDL RATIO 4.1 (4.2-7.3)
[2021-01-12] MEDS: FERROUS SULFATE 325 MG EC TABLET PO SCH (06:40)
[2021-01-12 08:00] VITALS: BP 120/77
[2021-01-12] MEDS: MULTIVITAMINS WITH MINERALS, THERAPEUTIC TABLET PO SCH (08:08)
[2021-01-12] MEDS: MUPIROCIN CALCIUM 2% 22 GM OINTMENT NASAL SCH ×2 (08:08→18:44)
[2021-01-12] MEDS: OLANZapine 5 MG RAPDIS TABLET PO PRN ×2 (08:08→12:42)
[2021-01-12] MEDS: GABAPENTIN 300 MG CAPSULE PO SCH ×3 (08:08→17:08)
[2021-01-12] MEDS: LORazepam 2 MG TABLET PO PRN ×3 (08:08→17:08)
[2021-01-12] MEDS: AmLODIPine BESYLATE 10 MG TABLET PO SCH (08:08)
[2021-01-12] MEDS: PRAVASTATIN SODIUM 20 MG TABLET PO SCH (08:08)
[2021-01-12] MEDS: IBUPROFEN 600 MG TABLET PO PRN (10:39)
[2021-01-12] MEDS: OLANZapine 5 MG TABLET PO SCH (20:08)
[2021-01-13] MEDS: LORazepam 2 MG TABLET PO PRN ×3 (01:28→16:35)
[2021-01-13] MEDS: FERROUS SULFATE 325 MG EC TABLET PO SCH (06:50)
[2021-01-13 08:00] VITALS: BP 134/77
[2021-01-13] MEDS: MUPIROCIN CALCIUM 2% 22 GM OINTMENT NASAL SCH ×2 (08:21→16:16)
[2021-01-13] MEDS: PRAVASTATIN SODIUM 20 MG TABLET PO SCH (08:21)
[2021-01-13] MEDS: OLANZapine 5 MG RAPDIS TABLET PO PRN ×2 (08:24→16:35)
[2021-01-13] MEDS: MULTIVITAMINS WITH MINERALS, THERAPEUTIC TABLET PO SCH (08:24)
[2021-01-13] MEDS: AmLODIPine BESYLATE 10 MG TABLET PO SCH (08:24)
[2021-01-13] MEDS: GABAPENTIN 300 MG CAPSULE PO SCH ×3 (08:24→16:06)
[2021-01-13] MEDS: CHLORHEXIDINE GLUCONATE 4% 118 ML TOPICAL LIQUID TP SCH (13:35)
[2021-01-13 16:45] VITALS: BP 138/77
[2021-01-13] MEDS: OLANZapine 5 MG TABLET PO SCH (20:15)
[2021-01-14] MEDS: FERROUS SULFATE 325 MG EC TABLET PO SCH (06:59)
[2021-01-14] MEDS: MUPIROCIN CALCIUM 2% 22 GM OINTMENT NASAL SCH ×2 (09:16→17:05)
[2021-01-14] MEDS: OLANZapine 5 MG RAPDIS TABLET PO PRN ×2 (09:16→15:36)
[2021-01-14] MEDS: CHLORHEXIDINE GLUCONATE 4% 118 ML TOPICAL LIQUID TP SCH (09:16)
[2021-01-14] MEDS: AmLODIPine BESYLATE 10 MG TABLET PO SCH (09:16)
[2021-01-14] MEDS: GABAPENTIN 300 MG CAPSULE PO SCH ×3 (09:16→17:05)
[2021-01-14] MEDS: PRAVASTATIN SODIUM 20 MG TABLET PO SCH (09:16)
[2021-01-14] MEDS: MULTIVITAMINS WITH MINERALS, THERAPEUTIC TABLET PO SCH (09:19)
[2021-01-14 16:36] VITALS: BP 130/77
[2021-01-14] MEDS: IBUPROFEN 600 MG TABLET PO PRN (19:31)
[2021-01-14] MEDS: OLANZapine 5 MG TABLET PO SCH (21:01)
[2021-01-15] MEDS: FERROUS SULFATE 325 MG EC TABLET PO SCH (07:18)
[2021-01-15] MEDS: PRAVASTATIN SODIUM 20 MG TABLET PO SCH (08:08)
[2021-01-15] MEDS: MULTIVITAMINS WITH MINERALS, THERAPEUTIC TABLET PO SCH (08:08)
[2021-01-15] MEDS: MUPIROCIN CALCIUM 2% 22 GM OINTMENT NASAL SCH ×2 (08:09→16:32)
[2021-01-15] MEDS: CHLORHEXIDINE GLUCONATE 4% 118 ML TOPICAL LIQUID TP SCH (08:09)
[2021-01-15] MEDS: OLANZapine 5 MG RAPDIS TABLET PO PRN ×2 (08:09→15:46)
[2021-01-15] MEDS: GABAPENTIN 300 MG CAPSULE PO SCH ×3 (08:09→16:32)
[2021-01-15] MEDS: AmLODIPine BESYLATE 10 MG TABLET PO SCH (08:09)
[2021-01-15 08:32] VITALS: BP 112/63
[2021-01-15] MEDS: IBUPROFEN 600 MG TABLET PO PRN ×2 (09:09→16:33)
[2021-01-15 16:34] VITALS: BP 144/73
[2021-01-15] MEDS: OLANZapine 5 MG TABLET PO SCH (20:10)
[2021-01-16] MEDS: FERROUS SULFATE 325 MG EC TABLET PO SCH (06:59)
[2021-01-16 08:22] VITALS: BP 99/66
[2021-01-16] MEDS: MUPIROCIN CALCIUM 2% 22 GM OINTMENT NASAL SCH (08:52)
[2021-01-16] MEDS: CHLORHEXIDINE GLUCONATE 4% 118 ML TOPICAL LIQUID TP SCH (08:52)
[2021-01-16] MEDS: OLANZapine 5 MG RAPDIS TABLET PO PRN ×2 (08:53→15:48)
[2021-01-16] MEDS: GABAPENTIN 300 MG CAPSULE PO SCH ×3 (08:53→16:17)
[2021-01-16] MEDS: AmLODIPine BESYLATE 10 MG TABLET PO SCH (08:53)
[2021-01-16] MEDS: PRAVASTATIN SODIUM 20 MG TABLET PO SCH (08:53)
[2021-01-16] MEDS: MULTIVITAMINS WITH MINERALS, THERAPEUTIC TABLET PO SCH (08:53)
[2021-01-16] MEDS: IBUPROFEN 600 MG TABLET PO PRN ×3 (08:53→20:38)
[2021-01-16] MEDS: LORazepam 2 MG TABLET PO PRN (09:37)
[2021-01-16 15:04] LABS: COVID AG,FIA SOURCE NASOPHARYNGEAL
[2021-01-16 16:00] VITALS: BP 126/79
[2021-01-16] MEDS: OLANZapine 5 MG TABLET PO SCH (20:35)
[2021-01-17] MEDS: FERROUS SULFATE 325 MG EC TABLET PO SCH (07:03)
[2021-01-17 08:29] VITALS: BP 101/63
[2021-01-17] MEDS: PRAVASTATIN SODIUM 20 MG TABLET PO SCH (08:32)
[2021-01-17] MEDS: MULTIVITAMINS WITH MINERALS, THERAPEUTIC TABLET PO SCH (08:32)
[2021-01-17] MEDS: OLANZapine 5 MG RAPDIS TABLET PO PRN (08:32)
[2021-01-17] MEDS: IBUPROFEN 600 MG TABLET PO PRN (08:32)
[2021-01-17] MEDS: GABAPENTIN 300 MG CAPSULE PO SCH ×2 (08:32→12:10)
[2021-01-17] MEDS: LORazepam 2 MG TABLET PO PRN (08:32)
[2021-01-17] MEDS: AmLODIPine BESYLATE 10 MG TABLET PO SCH (08:33)
[2021-01-17] MEDS: CHLORHEXIDINE GLUCONATE 4% 118 ML TOPICAL LIQUID TP SCH (09:00)
[2021-01-17] MEDS ORDERED: OLAN5TAB52 PO (10:42)
[2021-01-17] MEDS ORDERED: CHLO240L TP (10:42)
[2021-01-17] MEDS ORDERED: MULT-1239 PO (10:44)
[2021-01-17] MEDS ORDERED: MUPI15CR12 TP (10:46)
[2021-01-17] MEDS ORDERED: MUPIROCIN CALCIUM 2% 22 GM OINTMENT TP SCH (11:00)
[2021-01-17] MEDS ORDERED: SULFAMETHOX/TRIMETH DS 800-160 MG/TABLET PO SCH (17:00)
== END 2021-01-17 14:30 | disposition home or self-care (01) | DRG 750 ==
LOC: EMS 22:56 → 3EC 23:56
PROVIDERS: ADMIT Psychiatry & Neurology Psychiatry; ATTEND Psychiatry & Neurology Psychiatry
DX: F20.0 Paranoid schizophrenia (principal); E11.65 Type 2 diabetes mellitus with hyperglycemia; E78.5 Hyperlipidemia, unspecified; I10 Essential (primary) hypertension; F17.210 Nicotine dependence, cigarettes, uncomplicated; J44.9 Chronic obstructive pulmonary disease, unspecified; Z20.822 Contact with and (suspected) exposure to COVID-19; B19.20 Unspecified viral hepatitis C without hepatic coma; G40.909 Epilepsy, unspecified, not intractable, without status epilepticus; G47.00 Insomnia, unspecified; K59.00 Constipation, unspecified; F14.10 Cocaine abuse, uncomplicated; E78.00 Pure hypercholesterolemia, unspecified; F32.9 Major depressive disorder, single episode, unspecified; S90.921A Unspecified superficial injury of right foot, initial encounter; X58.XXXA Exposure to other specified factors, initial encounter; F41.9 Anxiety disorder, unspecified; K21.9 Gastro-esophageal reflux disease without esophagitis; Z86.73 Personal history of transient ischemic attack (TIA), and cerebral infarction without residual deficits; Z88.0 Allergy status to penicillin; Z88.8 Allergy status to other drugs, medicaments and biological substances; Z79.899 Other long term (current) drug therapy; I25.2 Old myocardial infarction; Z71.6 Tobacco abuse counseling; Z71.51 Drug abuse counseling and surveillance of drug abuser; Y93.89 Activity, other specified; Y92.89 Other specified places as the place of occurrence of the external cause; Y99.8 Other external cause status
CPT/HCPCS: 80053; 80061; 82140; 82962; 85025; 87070; 87077; 87081; 87186; 99285; G0480